=== PATIENT | male | born 1970 | race Caucasian/White ===

== ENCOUNTER → 2020-04-28 14:39 | Outpatient (BNV) | payer MEDICAID, SELFPAY | PROVIDERS: PCP Internal Medicine; Visit Provider Internal Medicine | DX: D47.3 Essential (hemorrhagic) thrombocythemia (principal) | CPT/HCPCS: 99213; 99214; G2211 ==

== ENCOUNTER 2020-06-30 09:56 | Outpatient (REF) | payer MEDICAID, SELFPAY | END 2020-06-30 09:57 | disposition home or self-care (01) | LOC: HO.LAB 09:56 | PROVIDERS: PCP Internal Medicine; Visit Provider Internal Medicine | DX: Z20.822 Contact with and (suspected) exposure to COVID-19 (principal) | CPT/HCPCS: 36415; C9803; U0003 ==

== ENCOUNTER → 2020-09-18 14:23 | Outpatient (REF) | payer MEDICAID, SELFPAY | LOC: HO.SL 14:23 | PROVIDERS: PCP Internal Medicine; Visit Provider Internal Medicine | DX: G47.30 Sleep apnea, unspecified (principal) | CPT/HCPCS: 95806 ==

== ENCOUNTER 2020-10-12 07:40 | Outpatient (REF) | payer MEDICAID, SELFPAY | END 2020-10-12 07:41 | disposition home or self-care (01) | LOC: HO.LAB 07:40 | PROVIDERS: Visit Provider Internal Medicine | DX: Z20.822 Contact with and (suspected) exposure to COVID-19 (principal) | CPT/HCPCS: C9803; U0003; U0005 ==

== ENCOUNTER 2020-11-14 13:54 | Outpatient (REF) | payer MEDICAID, SELFPAY | END 2020-11-14 13:55 | disposition home or self-care (01) | LOC: HO.LAB 13:54 | PROVIDERS: PCP Internal Medicine; Visit Provider Internal Medicine | DX: Z20.822 Contact with and (suspected) exposure to COVID-19 (principal) | CPT/HCPCS: C9803; U0003; U0005 ==

== ENCOUNTER 2021-10-23 12:27 | Outpatient (REF) | payer MEDICAID, SELFPAY ==
[2021-10-23 13:14] LABS: COVID-19 Test Positive (Negative); IDNOW Serial# 08D9AD1C
== END 2021-10-23 12:28 | disposition home or self-care (01) ==
LOC: HO.LAB 12:27
PROVIDERS: PCP Internal Medicine; Visit Provider Internal Medicine
DX: Z20.822 Contact with and (suspected) exposure to COVID-19 (principal)
CPT/HCPCS: 87635; C9803

== ENCOUNTER 2021-10-30 13:03 | Outpatient (REF) | payer MEDICAID, SELFPAY ==
[2021-10-30 13:54] LABS: COVID-19 Test Negative (Negative)
== END 2021-10-30 13:04 | disposition home or self-care (01) ==
LOC: HO.LAB 13:03
PROVIDERS: PCP Internal Medicine; Visit Provider Internal Medicine
DX: Z20.822 Contact with and (suspected) exposure to COVID-19 (principal)
CPT/HCPCS: 87635; C9803

== ENCOUNTER 2022-05-04 13:52 | Emergency (ER) | payer OTHER, MEDICAID, SELFPAY ==
--- NOTE | ~2022-05-04 | XR_ITS ---
EXAMINATION: XR FEMUR, LEFT CLINICAL INFORMATION: Pain, injury COMPARISON: None TECHNIQUE: 4 views of the left femur were obtained. FINDINGS: The bones and soft tissues are normal. No fracture. No osseous lesions. XR/XR femur LT 2V IMPRESSION: Normal left femur.
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
[2022-05-04 14:21] VITALS: BP 126/82; PULSE 90; RESP 18; TEMP 36.8; O2SAT 97; BMI 28.5
[2022-05-04] MEDS: Acetaminophen 325 MG TABLET 975 MG PO (14:27)
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
== END 2022-05-04 15:43 | disposition home or self-care (01) ==
PROVIDERS: Emergency Provider Emergency Medicine; PCP Internal Medicine
DX: Z04.2 Encounter for examination and observation following work accident (principal); M79.652 Pain in left thigh; E11.9 Type 2 diabetes mellitus without complications
CPT/HCPCS: 73552; 99283

== ENCOUNTER 2023-02-03 19:07 | Outpatient (REF) | payer MEDICAID, SELFPAY | END 2023-02-03 19:08 | disposition home or self-care (01) | LOC: HO.HHCLNP 19:07 | PROVIDERS: Visit Provider Registered Nurse | DX: M79.645 Pain in left finger(s) (principal) | CPT/HCPCS: 87070; 87073; 87076; 87147; 87185; 87205 ==

== ENCOUNTER 2024-03-31 15:20 | Outpatient (REF) | payer MEDICAID, SELFPAY ==
--- NOTE | ~2024-03-31 | XR_ITS ---
EXAMINATION: BILATERAL FEET CLINICAL INFORMATION: Two-month history of atraumatic bilateral foot pain COMPARISON: None available. TECHNIQUE: 3 views each foot FINDINGS: Right foot: Some mild degenerative changes are present in the mid foot with some osteophytes arising from the dorsal navicular and cuneiform. There is some mild angular deformity with some lateral angulation at the third and fourth metatarsal phalangeal joints. There is minimal enthesopathy at the insertion of the Achilles tendon. A small plantar calcaneal spur is seen. No fractures or bony destructive lesions. No ankle joint effusion. Left foot: Some mild degenerative changes are present in the mid foot with some osteophytes arising from the dorsal navicular and cuneiform. No ankle joint effusion. Small plantar calcaneal spur is present. No fractures or dislocations. XR/XR foot LT min 3V IMPRESSION: 1. Mild degenerative changes in the mid feet bilaterally. 2. Small plantar calcaneal spurs. 3. No acute finding. Electronically signed by: Arun Williamson MD 04/01/2024 10:24 AM EDT
--- NOTE | ~2024-03-31 | XR_ITS ---
EXAMINATION: BILATERAL FEET CLINICAL INFORMATION: Two-month history of atraumatic bilateral foot pain COMPARISON: None available. TECHNIQUE: 3 views each foot FINDINGS: Right foot: Some mild degenerative changes are present in the mid foot with some osteophytes arising from the dorsal navicular and cuneiform. There is some mild angular deformity with some lateral angulation at the third and fourth metatarsal phalangeal joints. There is minimal enthesopathy at the insertion of the Achilles tendon. A small plantar calcaneal spur is seen. No fractures or bony destructive lesions. No ankle joint effusion. Left foot: Some mild degenerative changes are present in the mid foot with some osteophytes arising from the dorsal navicular and cuneiform. No ankle joint effusion. Small plantar calcaneal spur is present. No fractures or dislocations. XR/XR foot RT min 3V IMPRESSION: 1. Mild degenerative changes in the mid feet bilaterally. 2. Small plantar calcaneal spurs. 3. No acute finding. Electronically signed by: Arun Williamson MD 04/01/2024 10:24 AM EDT
== END 2024-03-31 15:21 | disposition home or self-care (01) ==
LOC: HO.HHCX 15:20
PROVIDERS: Visit Provider Emergency Medicine
DX: M79.671 Pain in right foot (principal); M79.672 Pain in left foot
CPT/HCPCS: 73630

== ENCOUNTER 2024-03-31 15:39 | Outpatient (REF) | payer MEDICAID, SELFPAY ==
[2024-03-31 17:16] LABS: Alanine Aminotransferase 28 U/L (0-40); Alkaline Phosphatase 115 U/L (39-117); Anion Gap 13 (12-20); Aspartate Amino Transferase 12 U/L (5-37); Bilirubin Total 0.3 mg/dL (0.0-1.0); Blood Urea Nitrogen 14 mg/dL (9-16); Calcium 9.6 mg/dL (8.4-10.2); Carbon Dioxide 24 mmol/L (22-29); Chloride 105 mmol/L (96-108); Cholesterol 180 mg/dL (<200); Estimated Glomerular Filt Rate > 60; Glucose Random 390 mg/dL (60-115); HDL Cholesterol 60 mg/dL (>40); LDL Cholesterol Calculated 59 mg/dL (<100); Sodium 138 mmol/L (135-145); Total Protein 7.1 g/dL (6.5-8.0); Triglycerides 307 mg/dL (<150)
[2024-03-31 17:17] LABS: Prostate Specific Antigen 0.83 ng/mL (<0.05-4.0)
== END 2024-03-31 15:40 | disposition home or self-care (01) ==
LOC: HO.HHCL 15:39
PROVIDERS: Visit Provider Nurse Practitioner Family
DX: Z71.3 Dietary counseling and surveillance (principal); E11.9 Type 2 diabetes mellitus without complications; R35.0 Frequency of micturition
CPT/HCPCS: 36415; 80053; 80061; 84153

== ENCOUNTER 2024-07-05 16:20 | Outpatient (REF) | payer MEDICAID, SELFPAY ==
[2024-07-05 17:50] LABS: MANUAL DIFF FLAG NO
[2024-07-05 18:00] LABS: Basophils Absolute Auto 0.1 X10*3/uL (0.0-0.2); Basophils Percent Auto 0.7 % (0-2); Eosinophils Absolute Auto 0.3 X10*3/uL (0.0-0.4); Eosinophils Percent Auto 2.3 % (0-4); Hematocrit 45.2 % (42.0-52.0); Hemoglobin 14.5 g/dl (14.0-18.0); Imm Gran Abs Auto 0.17 X10*3/uL (0.00-0.03); Imm Gran Pct Auto 1.4 % (0.0-0.4); Lymphocytes Absolute Auto 1.6 X10*3/uL (1.2-4.9); Lymphocytes Percent Auto 12.8 % (20-40); Mean Corpuscular HGB Conc 32.1 g/dl (31.0-36.0); Mean Corpuscular Hemoglobin 25.6 pg (27.0-33.0); Mean Corpuscular Volume 79.7 fL (80.0-98.0); Mean Platelet Volume 8.7 fL (9.4-12.4); Monocytes Percent Auto 8.2 % (2-11); Neutrophils Absolute Auto 9.2 x10*3/uL (2.0-8.3); Neutrophils Percent Auto 74.6 % (45-73); Red Blood Count 5.67 X10*6/uL (4.60-5.80); Red Cell Distribution Width 13.9 % (11.0-16.0); White Blood Count 12.3 X10*3/uL (4.8-10.8)
[2024-07-05 18:11] LABS: Alanine Aminotransferase 29 U/L (0-40); Albumin Level 4.1 g/dL (3.5-5.0); Alkaline Phosphatase 91 U/L (39-117); Anion Gap 10 (12-20); Aspartate Amino Transferase 30 U/L (5-37); Bilirubin Total 0.5 mg/dL (0.0-1.0); Blood Urea Nitrogen 17 mg/dL (9-16); Calcium 9.5 mg/dL (8.4-10.2); Carbon Dioxide 23 mmol/L (22-29); Chloride 110 mmol/L (96-108); Estimated Glomerular Filt Rate > 60; Glucose Random 121 mg/dL (60-115); Potassium 4.1 mmol/L (3.3-5.1); Sodium 139 mmol/L (135-145); Total Protein 7.5 g/dL (6.5-8.0)
[2024-07-05 18:49] LABS: Platelet Count 1864 X10*3/uL (160-400)
--- OUTSIDE RECORDS SUMMARY | 2024-07-05 19:51 | XMS_ITS | Encounter Summary ---
Author Organization [facility] Address [address] [place] [address] Care Team Providers Care Media Marketing Specialist Name Role Phone Name, Marty HOLDER Primary Care Provider [phone] Jenn Bryan PharmD Unavailable [phone] Reason for Visit * Reason Onset Date Comments Nurse Triage 07/01/2024 Encounter Details Date Type Department Care Team ([facility] st Contact Info) Description 07/01/2024 Telephone [facility] [address] [place] [address] Name, MD Marty [address] [place] [address] Nurse Triage Social History Tobacco Use Types Packs/Day Years Used Date Smoking Tobacco: Never Passive Smoke Exposure: Never Smokeless Tobacco: Never Alcohol Use Standard Drinks/Week Comments Never 0 (1 standard drink = 0.6 oz pur e alcohol) Depression Answer Date Recorded Patient Health Questionnaire-9 Score 9 04/11/2023 Patient Health Questionnaire-9 Score 9 04/11/2023 Last PHQ-9: Questionnaire Data Not on file 1 06/11/2022 Housing Stability Answer Date Recorded What is your housing situation today? I have bobnarciso mabry 04/04/[address] you li ve. Do you have problems with any of the following? Pests such as bugs, ants, or mice 04/04/2023 Food Insecurity Answer Date Recorded Within the past 12 months, y ou worried that your food would run out before you got money to buy more: Sometimes True 2022 Within the past 12 months,th e food you bought just didn't last and you didn't have enough money to get more: Sometimes True 04/04/2023 Transportation Answer Date Recorded In the past 12 months, has l ack of transportation kept you from medical appts, meetings, work or from getting things needed for daily living? No 04/04/2023 Utilities Answer Date Recorded In the past 12 months, has t he electric, gas, oil or water company threatened to shut off services in your home? No 04/04/2023 Depression Answer Date Recorded Patient Health Questionnaire-2 Score 4 04/11/2023 Sex and Gender Information Value Date Recorded Sex Assigned at Male 04/08/2022 10:32 AM EDT Legal Sex Male 10:32 AM EDT Gender Identity Male 04/08/2022 10:32 AM EDT Sexual Orientation Straight 04/08/2022 10 :32 AM EDT documented as of this encounter Miscellaneous Notes * Telephone Encounter - Velia Barton LPN - 07/01/2024 10:57 AM EST Triage call returned to patient who reports bilateral foot pain on the bottom of his feet. Denies neuropathic pain as this feels different with cramping and shooting pain. No recent accident or injury. No open areas or discoloration. Patient unable to report current BG as he states his CGM is . Patient is taking amitriptyline as previously ordered and was told he has arthritis in feet but that OTC Ibuprofen and cream is not effective for pain. Disposition reviewed and patient in agreement with plan. ASK/Michael FAMILY HELPER on Friday at 230pm. Protocol Used: Foot Pain (Adult) Protocol-Based Disposition: See in Office or Video Visit within 3 Days Video visit not offered Positive Triage Question: * Moderate pain (e.g., interferes with normal activities, limping) and present > 3 days * All higher-acuity triage questions were negative Care Advice Discussed: * Pain Medicines * Reasons To Call Back - Swelling, redness, or fever occur - Severe pain not relieved by pain medicine - Pain lasts over 7 days - You become worse * Reassurance and Education - Muscle Cramps * Reasons To Call Back - Fever or redness occurs - Foot is cool or blue in comparison to other side - You become worse * Telephone Encounter - Treva Larsen - 07/01/2024 10:38 AM EST Symptom: Foot or Ankle Pain - Not From Injury Outcome: Schedule an urgent appointment (within 1 hour) or talk to a nurse or provider soon Reason: Trouble walking The caller accepted this outcome. Contact pt at [phone] (hungarian) documented in this encounter Plan of Treatment Upcoming Encounters Date Type Department Care Team (Late st Contact Info) Description 07/27/2024 9:45 AM EST Office Visit [facility] [address] [place] [address] Tanya Gonzalez, OD [address] [place] [address] 08/10/2024 2:30 PM EST Office Visit [facility] [address] [place] [phone] Rayne Medley NP [address] [place] [address] 09/21/2024 10:15 AM EDT Office Visit [facility] [address] [place] [phone] Name, MD Marty [address] [place] [phone] documented as of this encounter Visit Diagnoses Not on filedocumented in this encounter Additional Health Concerns Assessment Noted Time PHQ-9 Depression Total Score: 9 04/11/20 23 3:59 PM EDT documented as of this encounter Care Teams Media Marketing Specialist Relationship Specialty Start Date End Date Name, MD Marty [address] [place] [id number] PCP - General Internal Medicine 03/31/24 Jenn Bryan PharmD [address] [place] [phone] Pharmacist Internal Medicine 04/29/24 documented as of this encounter
--- OUTSIDE RECORDS SUMMARY | 2024-07-05 19:51 | XMS_ITS | Encounter Summary ---
Author Organization [employer] Address [address] [facility] 7t [place] [address] Care Team Providers Care Manager Primary Name Role Phone Name, Marty HOLDER Primary Care Provider [phone] Jenn Bryan PharmD Unavailable [phone] Reason for Referral * Consultation (Routine) - Pending Review Specialty Diagnoses / Procedures Referred By Fabian watson Referred To Contact Podiatry Diagnoses Foot pain, bilateral Type 2 diabetes mellitus with diabetic neuropathy, unspecified whether prison insulin use ([facility]) Elevated hemoglobin A1c Rayne Medley NP [address] [place] [address] Phone: tel: fax: Referral ID Status Reason Start Date Expiration Date Visits Requested Visits Authorized [id number] Pending Review Specialty Services Required 07/05/2024 07/05/2025 1 1 * Consultation (Routine) - Authorized Specialty Diagnoses / Procedures Referred By Fabian watson Referred To Contact Optometry Diagnoses Type 2 diabetes mellitus with diabetic neuropathy, unspecified whether local company intermodal truck driver insulin use ([facility]) Elevated hemoglobin A1c Rayne Medley NP [address] [place] [address] Phone: tel: fax: [facility] OPT[facility] [address] [place] [address] Phone: tel: fax: Referral ID Status Reason Start Date Expiration Date Visits Requested Visits Authorized [id number] Authorized Consult and Treat 07/05/2024 07/05/2025 1 1 Encounter Details Date Type Department Care Team (Late st Contact Info) Description 07/05/2024 2:30 PM EST Office Visit [facility] MED[facility] [address] [place] [address] Rayne Medley NP [address] [place] [address] Foot pain, bilateral (Primary Dx); Type 2 diabetes mellitus with diabetic neuropathy, unspecified whether local company intermodal truck driver insulin use ([facility]); Elevated hemoglobin A1c Social History Tobacco Use Types Packs/Day Years Used Date Smoking Tobacco: Never Passive Smoke Exposure: Never Smokeless Tobacco: Never Alcohol Use Standard Drinks/Week Comments Never 0 (1 standard drink = 0.6 oz pur e alcohol) Depression Answer Date Recorded Patient Health Questionnaire-9 Score 4 07/05/2024 Patient Health Questionnaire-9 Score 4 07/05/2024 Last PHQ-9: Questionnaire Data Not on file 0 07/05/2024 Housing Stability Answer Date Recorded What is your housing situation today? I have bob mabry 07/05/[address] you li ve. Do you have problems with any of the following? None of the above 07/05/2024 Food Insecurity Answer Date Recorded Within the past 12 months, y ou worried that your food would run out before you got money to buy more: Never True 07/05/2024 Within the past 12 months,th e food you bought just didn't last and you didn't have enough money to get more: Never True Transportation Answer Date Recorded In the past 12 months, has l ack of transportation kept you from medical appts, meetings, work or from getting things needed for daily living? No 07/05/2024 Utilities Answer Date Recorded In the past 12 months, has t he electric, gas, oil or water company threatened to shut off services in your home? No 07/05/2024 Depression Answer Date Recorded Patient Health Questionnaire-2 Score 2 07/05/2024 Internet Access Answer Date Recorded Internet Access Q1 Yes 07/05/2024 Internet Access Q2 Not on file 07/05/2024 Sex and Gender Information Value Date Recorded Sex Assigned at Male 04/08/2022 10:32 AM EDT Legal Sex Male 10:32 AM EDT Gender Identity Male 04/08/2022 10:32 AM EDT Sexual Orientation Straight 04/08/2022 10 :32 AM EDT documented as of this encounter Last Filed Vital Signs Vital Sign Reading Time Taken Comments Blood Pressure 144/84 07/05/2024 2:33 PM EST Pulse 92 07/05/2024 2:33 PM EST Temperature 36.7 ??C (98.1 ??F) 07/05/2024 2:33 PM ES T Respiratory Rate 16 07/05/2024 2:33 PM EST Oxygen Saturation 97% 07/05/2024 2:33 PM EST Inhaled Oxygen Concentration - - Weight 94.6 kg (208 lb 9.6 oz) 07/05/2024 2:33 P M EST Height 170.2 cm (5' 7 ) 07/05/2024 2:33 PM EST Body Mass Index 32.67 07/05/2024 2:33 PM EST documented in this encounter Plan of Treatment Upcoming Encounters Date Type Department Care Team (Late st Contact Info) Description 07/27/2024 9:45 AM EST Office Visit [facility] OPT[facility] [address] [place] [address] Tanya Gonzalez, OD [address] [place] [address] 08/10/2024 2:30 PM EST Office Visit [facility] [address] [place] [address] Rayne Medley, MYRON [address] [place] [address] 09/21/2024 10:15 AM EDT Office Visit [facility] [address] [place] [address] Name, MD Marty [address] [place] [address] Scheduled Orders Name Type Priority Associated Diagnoses Orde r Schedule Hemoglobin A1c Lab Routine Foot pain, bilateral Elevated hemoglobin A1c Expected: 07/05/2024 (Approximate), Expires: 07/05/2025 Scheduled Referrals Name Type Priority Associated Diagnoses Orde r Schedule Referral to [facility] Outpatient Referral Routine Type 2 diabetes mellitus with diabetic neuropathy, unspecified whether local company intermodal truck driver insulin use ([facility]) Elevated hemoglobin A1c Expected: 07/05/2024 (Approximate), Expires: 07/05/2025 Referral to Podiatry Outpatient Referral Routine Foot pain, bilateral Type 2 diabetes mellitus with diabetic neuropathy, unspecified whether prison insulin use ([facility]) Elevated hemoglobin A1c Expected: 07/05/2024 (Approximate), Expires: 07/05/2025 documented as of this encounter Procedures Procedure Name Priority Date/Time Associated Diagnosis Comments CBC WITH AUTO DIFFERENTIAL Routine 07/05/2024 4:23 PM EST Foot pain, bilateral Elevated hemoglobin A1c COMPREHENSIVE METABOLIC PANEL Routine 07/05/2024 4:23 PM EST Foot pain, bilateral Elevated hemoglobin A1c documented in this encounter Results * (ABNORMAL) CBC auto differential (07/05/2024 4:23 PM EST) White Blood Count 12.3(H) 4.8 - 10.8 X10*3/uL [facility] Red Blood Count 5.67 4.60 - 5.80 X10*6/uL [facility] Hemoglobin 14.5 14.0 - 18.0 g/dl [facility] Hematocrit 45.2 42.0 - 52.0 % [facility] Mean Corpuscular Volume 79.7(L) 80.0 - 98.0 fL [facility] Mean Corpuscular Hemoglobin 25.6(L) 27.0 - 33.0 pg [facility] Mean Corpuscular HGB Conc 32.1 31.0 - 36.0 g/dl [facility] Red Cell Distribution Width 13.9 11.0 - 16.0 % [facility] Platelet Count 1,864(HH) 160 - 400 X10*3/uL [facility] Comment:Results of PLT garcia d to and read back by DR Hodge 07/05/24 at 1849 by WILMER. Mean Platelet Volume 8.7(L) 9.4 - 12.4 fL [facility] Neutrophils Percent Auto 74.6(H) 45 - 73 % [facility] Imm Gran Pct Auto 1.4(H) 0.0 - 0.4 % [facility] Lymphocytes Percent Auto 12.8(L) 20 - 40 % [facility] Monocytes Percent Auto 8.2 2 - 11 % [facility] Eosinophils Percent Auto 2.3 0 - 4 % [facility] Basophils Percent Auto 0.7 0 - 2 % [facility] NRBC Pct Auto 0.0 0.0 - 0.2 /100WBC [facility] Neutrophils Absolute Auto 9.2(H) 2.0 - 8.3 x10*3/uL [facility] Imm Gran Abs Auto 0.17(H) 0.00 - 0.03 X10*3/uL [facility] Lymphocytes Absolute Auto 1.6 1.2 - 4.9 X10*3/uL [facility] Monocytes Absolute Auto 1.0 0.1 - 1.2 X10*3/uL [facility] Eosinophils Absolute Auto 0.3 0.0 - 0.4 X10*3/uL [facility] Basophils Absolute Auto 0.1 0.0 - 0.2 X10*3/uL [facility] NRBC Abs Auto 0.000 0.0 - 0.012 X10*3/uL [facility] Blood Venous blood specimen / Unknown 07/05/2024 4:23 PM EST 07/05/2024 5:48 PM EST us Rayne Medley EGG TESTER LAB BLOOD ORDERABLES Final Resul t [facility] [address] [place] [address] [phone] * (ABNORMAL) Comprehensive Metabolic Panel (07/05/2024 4:23 PM EST) Sodium 139 135 - 145 mmol/L [facility] Potassium 4.1 3.3 - 5.1 mmol/L [facility] Chloride 110(H) 96 - 108 mmol/L [facility] Carbon Dioxide 23 22 - 29 mmol/L [facility] Anion Gap 10(L) 12 - 20 [facility] Urea Nitrogen (BUN) 17(H) 9 - 16 mg/dL [facility] Creatinine, Serum 0.75 0.5 - 1.4 mg/dL [facility] Estimated Glomerular Filt Rate >60 [facility] Comment:Chronic Kidney Disea se: Estimated GFR < 60 mL/min/[id number] Kidney Disease: Estimated GFR < 15 mL/min/1.73m2 Glucose 121(H) 60 - 115 mg/dL [facility] Calcium 9.5 8.4 - 10.2 mg/dL [facility] Bilirubin, Total 0.5 0.0 - 1.0 mg/dL [facility] Aspartate Amino Transferase 30 5 - 37 U/L [facility] Alanine Aminotransferase 29 0 - 40 U/L [facility] Total Protein 7.5 6.5 - 8.0 g/dL [facility] Albumin Level 4.1 3.5 - 5.0 g/dL [facility] Alkaline Phosphatase 91 39 - 117 U/L [facility] Blood Venous blood specimen / Unknown 07/05/2024 4:23 PM EST 07/05/2024 5:48 PM EST us Rayne Medley EGG TESTER LAB BLOOD ORDERABLES Final Resul t Performing Organization Address City/State/[facility] Co de Phone Number [facility] [address] [place] [address] [phone] documented in this encounter Visit Diagnoses Diagnosis Foot pain, bilateral- Primary Type 2 diabetes mellitus with diabetic neuropathy, unspecified whether prison insulin use ([facility]) Elevated hemoglobin A1c Other abnormal blood chemistry documented in this encounter Additional Health Concerns Assessment Noted Time PHQ-9 Depression Total Score: 4 07/05/19 25 2:47 PM EST documented as of this encounter Care Teams Manager Primary Relationship Specialty Start Date End Date Name, MD Marty [address] [place] [address] PCP - General Internal Medicine 03/31/24 Jenn Bryan, GalloD [address] [place] [address] Pharmacist Internal Medicine 04/29/24 documented as of this encounter
--- OUTSIDE RECORDS SUMMARY | 2024-07-05 19:51 | XMS_ITS | Encounter Summary ---
Author Organization [employer] Address [address] [facility] [address] [place] [address] Care Team Providers Care Sterile Processing Technologist Name Role Phone Name, Marty HOLDER Primary Care Provider [phone] Jenn Bryan PharmD Unavailable [phone] Encounter Details Date Type Department Care Team ([facility] st Contact Info) Description 04/02/2024 Orders Only [facility] [address] [place] [address] Linh Thompson RN Social History Tobacco Use Types Packs/Day Years [...] housing situation today? I have bob mabry 04/04/[address] you [...] AM EDT documented as of this encounter Plan of Treatment Upcoming Encounters Date Type Department Care Team (Late st Contact Info) Description 07/27/2024 9:45 AM EST Office Visit [facility] OPT[facility] [address] [place] [address] Tanya Gonzalez, OD [address] [place] [address] 08/10/2024 2:30 PM EST Office Visit [facility] MEDICINE [address] [place] [address] Rayne Medley, MYRON [address] [place] [address] 09/21/2024 10:15 AM EDT Office Visit [facility] [address] [place] [address] Name, MD Marty [address] [place] [address] documented as of this encounter Visit Diagnoses Not on filedocumented in this encounter Additional Health Concerns Assessment Noted Time PHQ-9 Depression Total Score: 9 04/11/20 23 3:59 PM EDT documented as of this encounter Care Teams Sterile Processing Technologist Relationship Specialty Start Date End Date Name, MD Marty [address] [place] [phone] PCP - General Internal Medicine 03/31/24 Jenn Bryan PharmD [address] [place] [phone] Pharmacist Internal Medicine 04/29/24 documented as of this encounter
--- OUTSIDE RECORDS SUMMARY | 2024-07-05 19:51 | XMS_ITS | Encounter Summary ---
Author Organization [employer] Address [address] 7[address] [place] [address] Care Team Providers Care Surgical Dressing Maker Name Role Phone Name, Marty HOLDER Primary Care Provider [phone] Jenn Bryan PharmD Unavailable [phone] Reason for Visit * Reason Comments Med Refill Encounter Details Date Type Department Care Team ([facility] Contact Info) Description 06/27/2024 Refill [facility] [address] [place] [address] Name, MD Marty [address] [place] [address] Social History Tobacco Use Types Packs/Day Years [...] Description 07/27/2024 9:45 AM EST Office Visit [facility] OPTOMETRY [address] [place] [address] Tanya Gonzalez, OD [address] [place] [address] 08/10/2024 2:30 PM EST Office Visit [facility] MED[facility]INE [address] [place] [address] Rayne Medley NP [address] [place] [address] 09/21/2024 10:15 AM EDT Office Visit [facility] [address] [place] [address] Name, MD Marty [address] [place] [address] documented as of this encounter Visit Diagnoses Not on filedocumented in this encounter Additional Health Concerns Assessment Noted Time PHQ-9 Depression Total Score: 9 04/11/20 23 3:59 PM EDT documented as of this encounter Care Teams Surgical Dressing Maker Relationship Specialty Start Date End Date Marty Friedman MD [address] [place] [address] PCP - General Internal Medicine 03/31/24 Jenn Bryan, PharmD [address] [place] [address] Pharmacist Internal Medicine 04/29/24 documented as of this encounter
--- OUTSIDE RECORDS SUMMARY | 2024-07-05 19:51 | XMS_ITS | Encounter Summary ---
Author Organization [employer] Address [address] [facility] 7t [place] [address] Care Team Providers Care Telegrapher Agent Name Role Phone Name, Marty HOLDER Primary Care Provider Jenn Bryan PharmD Unavailable [phone] Reason for Visit * Reason Comments Pre-visit Planning Not in service Encounter Details Date Type Department Care Team ([facility] Contact Info) Description 06/23/2024 Patient Outreach [facility] MED[facility] [address] [place] [address] Name, MD Marty [address] [place] [address] Pre-visit Planning (Not in service) Social History Tobacco Use Types Packs/Day Years [...] AM EDT documented as of this encounter Progress Notes * Pati August - 06/23/2024 9:10 AM EST CC Pati Ferguson placed outbound call to patient to complete pre-visit planning. No answer at this time. Patient name and were not confirmed. CC unable to lvm . Not in service. documented in this encounter Plan of Treatment Upcoming Encounters Date Type Department Care Team (Late st Contact Info) Description 07/27/2024 9:45 AM EST Office Visit [facility] OPTOMETRY [address] [place] [address] Tanya Gonzalez, OD [address] [place] [address] 08/10/2024 2:30 PM EST Office Visit [facility] MEDICINE [address] [place] [address] Rayne Medley NP [address] [place] [address] 09/21/2024 10:15 AM EDT Office Visit [facility] MED[facility]INE [address] [place] [phone] Name, MD Marty [address] [place] [address] documented as of this encounter Visit Diagnoses Not on filedocumented in this encounter Additional Health Concerns Assessment Noted Time PHQ-9 Depression Total Score: 9 04/11/20 23 3:59 PM EDT documented as of this encounter Care Teams Telegrapher Agent Relationship Specialty Start Date End Date Name, MD Marty [address] [place] [address] PCP - General Internal Medicine 03/31/24 Jenn Bryan PharmD [address] [place] [address] Pharmacist Internal Medicine 04/29/24 documented as of this encounter
--- OUTSIDE RECORDS SUMMARY | 2024-07-05 19:51 | XMS_ITS | Encounter Summary ---
Author Organization [employer] Address [address] [facility] [address] 7[address] [place] [address] Care Team Providers Care Mill House Supervisor Name Role Phone Name, Marty HOLDER Primary Care Provider [phone] Jenn Bryan PharmD Unavailable [phone] Encounter Details Date Type Department Care Team (Latest Contact Info) Description 07/05/2024 Travel Social History Tobacco Use Types Packs/Day Years [...] Description 07/27/2024 9:45 AM EST Office Visit [facility] OPTOMETRY [address] [place] [address] Tanya Gonzalez, OD [address] [place] [address] 08/10/2024 2:30 PM EST Office Visit [facility] MEDICINE [address] [place] [address] Rayne Medley, RAILROADER [address] [place] [address] 09/21/2024 10:15 AM EDT Office Visit [address] [address] NameMarty MD [address] [place] [address] documented as of this encounter Visit Diagnoses Not on filedocumented in this encounter Additional Health Concerns Assessment Noted Time PHQ-9 Depression Total Score: 4 07/05/19 25 2:47 PM EST documented as of this encounter Care Teams Mill House Supervisor Relationship Specialty Start Date End Date NameMarty MD [address] [place] [address] PCP - General Internal Medicine 03/31/24 Jenn Bryan PharmD [address] [place] [address] Pharmacist Internal Medicine 04/29/24 documented as of this encounter
--- OUTSIDE RECORDS SUMMARY | 2024-07-05 19:51 | XMS_ITS | Encounter Summary ---
Author Organization [employer] Address [address] [facility] 7t [place] [address] Care Team Providers Care Senior Mortgage Underwriter Name Role Phone Name, Marty HOLDER Primary Care Provider [phone] Jenn Bryan PharmD Unavailable [phone] Reason for Visit * Reason Comments Med Refill Encounter Details Date Type Department Care Team ([facility] st Contact Info) Description 06/22/2024 Refill [facility] [address] [place], [place] [phone] Name, MD Marty [address] [place] [address] Diabetes mellitus without complication (CMS/HCC) Social History Tobacco Use Types Packs/Day Years [...] Description 07/27/2024 9:45 AM EST Office Visit [facility] OPTOMETRY [address] [place] [address] Tanya Gonzalez, OD [address] [place] [address] 08/10/2024 2:30 PM EST Office Visit [facility] MEDICINE [address] [place] [address] Rayne Medley NP [address] [place] [address] 09/21/2024 10:15 AM EDT Office Visit [facility] MEDICINE [address] [place] [address] Marty Friedman MD [address] [place] [address] documented as of this encounter Visit Diagnoses Diagnosis Diabetes mellitus without complication (CMS/HCC) Type II or unspecified type diabetes mellitus without mention of complication, not stated as uncontrolled documented in this encounter Additional Health Concerns Assessment Noted Time PHQ-9 Depression Total Score: 9 04/11/20 23 3:59 PM EDT documented as of this encounter Care Teams Senior Mortgage Underwriter Relationship Specialty Start Date End Date Marty Friedman MD [address] [place] [address] PCP - General Internal Medicine 03/31/24 Jenn Bryan, Hawa [address] [place] [address] Pharmacist Internal Medicine 04/29/24 documented as of this encounter
--- OUTSIDE RECORDS SUMMARY | 2024-07-05 19:51 | XMS_ITS | Clinical Summary ---
Author Organization [employer] Address [address] [facility] 7[address] [place] [address] Care Team Providers Care Exercise Instructor Name Role Phone Name, Marty HOLDER Primary Care Provider [phone] Jenn Bryan PharmD Unavailable Allergies Active Allergy Reactions Criticality Noted Date Comments Metformin 08/24/2020 GI upset Medications cromolyn (Opticrom) 4 % ophthalmic solution INSTILL 1 DROP INTO THE AFFECTED EYE(S) FOUR TIMES DAILY 02/09/20 22 Active lisinopril 5 MG tabletIndications: Benign essential hypertension TAKE 1 TABLET BY MOUTH EVERY MORNING 90 tablet 3 10/21/19 24 Active Multiple Vitamins-Minerals (CertaVite/Antioxi dants) tablet TAKE 1 TABLET BY MOUTH EVERY MORNING 90 tablet 3 11/24/19 24 Active glipiZIDE (Glucotrol) 5 MG tabletIndications: Type 2 diabetes mellitus with hyperosmolarity without coma, without long-term current use of insulin (CMS/HCC) TAKE 4 TABLETS BY MOUTH TWICE DAILY IN THE MORNING AND THE EVENING 720 tablet 3 11/24/19 24 Active FREESTYLE LITE test stripIndications:D iabetes mellitus without complication (CMS/HCC) TEST BLOOD SUGAR THREE TIMES DAILY 100 strip 11 01/21/20 24 Active anagrelide (Agrylin) 1 MG capsule TAKE 1 CAPSULE BY MOUTH THREE TIMES DAILY IN THE MORNING, EVENING, AND BEDTIME 03/31/20 24 Active Alcohol Swabs (Alcohol Prep) padsIndications:Ty pe 2 diabetes mellitus with diabetic neuropathy, unspecified whether long-term insulin use (CMS/HCC) Use 3 times a day 200 each 1 04/09/20 24 Active Blood Glucose Monitoring Suppl (FreeStyle [place] Lite) w/Device kit Use to test blood sugar 3 times daily 1 kit 04/09/20 Active Blood Pressure kitIndications:Typ e 2 diabetes mellitus with diabetic neuropathy, with long-term current use of insulin (CMS/[facility]),Benign essential hypertension Use to check BP once daily as directed 1 kit 04/29/20 Active Continuous Glucose Special Events Fundraiser (FreeStyle Jovanni 2 Howe) deviceIndications: Type 2 diabetes mellitus with diabetic neuropathy, with long-term current use of insulin (CMS/[facility]) Use to scan sensor at least every 8 hours, as directed, for CGM 1 each 04/29/20 Active Continuous Glucose Sensor (FreeStyle Jovanni 2 Sensor) miscIndications:Ty pe 2 diabetes mellitus with diabetic neuropathy, with long-term current use of insulin (CMS/[facility]) Apply 1 sensor, as directed, every 14 days for CGM 2 each 04/29/20 Active glucose blood (FreeStyle Precision Stephanie Test) test stripIndications:T ype 2 diabetes mellitus with diabetic neuropathy, with long-term current use of insulin (CMS/[facility]) Use to test blood sugar up to 4 times daily, as directed 100 each 04/29/20 Active TRUEplus Lancets 33G miscIndications:Ty pe 2 diabetes mellitus with diabetic neuropathy, with long-term current use of insulin ([facility]) TEST BLOOD SUGAR FOUR TIMES DAILY 100 each 04/29/20 24 Active acetaminophen (Tylenol) 500 MG tablet Take 2 tablets (1,000 mg) by mouth every 6 (six) hours if needed for moderate pain or fever. 50 tablet 5 04/29/20 Active Diclofenac Sodium 1 % gel Apply 4 g topically if needed in the morning, at noon, in the evening, and at bedtime (pain). 100 g 5 04/29/20 24 Active amitriptyline (Elavil) 10 MG tablet Take 1 tablet (10 mg) by mouth at bedtime. 90 tablet 04/29/20 Active insulin lispro (HumaLOG) 100 UNIT/ML injectionIndicatio ns:Type 2 diabetes mellitus with diabetic neuropathy, with long-term current use of insulin (CMS/[facility]) Inject 10 units subQ up to three times daily with meals. 15 mL 2 04/29/20 24 Active insulin degludec (Tresiba FlexTouch) 200 UNIT/ML injectionIndicatio ns:Type 2 diabetes mellitus with diabetic neuropathy, with long-term current use of insulin ([facility]) Inject 40 units subQ once daily as directed 9 mL 5 04/29/20 24 Active Tirzepatide (Mounjaro) 5 MG/0.5ML solution auto-injectorIndic ations:Type 2 diabetes mellitus with diabetic neuropathy, with long-term current use of insulin ([facility]) Inject 5 mg under the skin 1 (one) time per week. 2 mL 11 04/29/20 24 Active Tirzepatide (Mounjaro) 2.5 MG/0.5ML solution auto-injectorIndic ations:Type 2 diabetes mellitus with diabetic neuropathy, with long-term current use of insulin ([facility]) Inject 2.5 mg under the skin 1 (one) time per week. 2 mL 04/29/20 24 Active cetirizine (ZyrTEC) 10 MG tabletIndications: Viral upper respiratory tract infection TAKE 1 TABLET BY MOUTH EVERY MORNING 90 tablet 1 05/12/20 24 Active Pentips Generic Pen Waite 32G X 4 MM miscIndications:Di abetes mellitus without complication ([facility]) DIRECTED FOUR TIMES DAILY TO INJECT lantus AND humalog 100 each 1 06/23/19 25 Active sertraline (Zoloft) 50 MG tablet TAKE 1 TABLET BY MOUTH EVERY MORNING 30 tablet 1 06/29/19 25 Active gabapentin (Neurontin) 100 MG capsuleIndications :Foot pain, bilateral,Type 2 diabetes mellitus with diabetic neuropathy, unspecified whether long-term insulin use ([facility]),Elevated hemoglobin A1c Take 1 capsule (100 mg) by mouth at bedtime for 3 days, THEN 2 capsules (200 mg) at bedtime for 3 days, THEN 3 capsules (300 mg) at bedtime for 24 days. 81 capsule 07/05/19 25 2024 Active insulin pen needle (UltiGuard SafePack Pen Needle) 32G x 4 mm miscIndications:Di abetes mellitus without complication ([facility]) USE FOUR TIMES DAILY TO INJECT LANTUS AND HUMALOG 100 each 7 10/20/19 24 2024 Discontinued sertraline (Zoloft) 50 MG tablet TAKE 1 TABLET BY MOUTH EVERY MORNING 30 tablet 1 05/10/20 24 2024 Discontinued Active Problems Problem Noted Date Diagnosed Date Foot pain, bilateral 07/05/2024 Elevated hemoglobin A1c 07/05/2024 Type 2 diabetes mellitus with diabetic neuropath y 04/09/2024 Assessment & Plan (04/09/2024 4:10 PM EDT): A1c above 7% goal at 12.3 today Pt will continue on lantus 33 units once daily at bedtime Pt will restart lispro 4 units before breakfast, 6 units before lunch, and 6 units before dinner Increased Trulicity today to 3mg. Once weekly, provided education about med side effects including nausea, vomiting, abdominal pain Pt will start amitriptyline 10 mg for neuropathy in feet Encouraged low carb diet and reducing amount of sweets on the weekend Patient plans to check Bgs at least twice daily Referral placed to CDTM to start patient on CGM Referral to vision center placed today for routine eye exam Diabetes mellitus without complication 0 Benign essential hypertension 02/01/2020 Thrombocytosis 02/01/2020 Encounters Date Type Department Care Team Description 07/05/2024 2:30 PM EST Office Visit [facility] [address] [place] [phone] Rayne Medley NP Foot pain, bilateral (Primary Dx); Type 2 diabetes mellitus with diabetic neuropathy, unspecified whether long-term insulin use ([facility]); Elevated hemoglobin A1c 07/05/2024 Travel 07/01/2024 Telephone [facility] [address] [place] [phone] Marty Friedman MD Nurse Triage 06/27/2024 Refill [facility] [address] [place] [address] Marty Friedman MD 06/23/2024 Patient Outreach [facility] [address] [place] [phone] Marty Friedman MD Pre-visit Planning (Not in service) 06/22/2024 Refill [facility] [address] [place], [place] [phone] Marty Friedman MD Diabetes mellitus without complication ([facility]/HCC) 05/11/2024 Telephone [facility] [address] [place] [address] Marty Friedman MD Durable Medical Equipment 05/11/2024 Refill [facility] [address] [place] [address] Marty Friedman MD Viral upper respiratory tract infection 05/06/[address] [address] Jayna Strickland NP 05/05/2024 10:00 AM EST Clinical Support [address] [address] Isabelle Montoya, swine extension field specialist mellitus without complication ([facility]) 04/30/[address] [address] Marty Friedman MD Durable Medical Equipment 04/29/[address] [address] Jenn Bryan, PharmD Prior Authorization ((1) Freestyle Jovanni 2 CGM sensor, reader, precision stephanie test strips; (2) Mounjaro) 04/29/[address] [address] Marty Friedman MD 04/28/[address] [address] Marty Friedman MD 04/12/2024 Travel 04/09/2024 2:45 PM EDT Office Visit [address] [address] Marty Friedman MD Type 2 diabetes mellitus with diabetic neuropathy, unspecified whether long-term insulin use ([facility]) (Primary Dx); Dietary counseling; Exercise counseling from Last 3 Months Immunizations Name Administration Dates Next Due Hep B, adult 09/02/2019,04/12/2019,03/11/2019 Influenza injectable quadriv alent IIV4 with preservative 05/19/2017 Influenza injectable quadriv alent preservative free 04/01/2018 Moderna Covid-19 Vaccine 12+ 06/18/2021,09/28/19 21,08/22/2020 Pneumococcal Polysaccharide PPSV23 11/12/2021 Tdap 05/19/2017 Social History Tobacco Use Types Packs/Day Years Used Date Smoking Tobacco: Never Passive Smoke Exposure: Never Smokeless Tobacco: Never Tobacco Cessation:Counseling Given: Not Answered Alcohol Use Standard Drinks/Week Comments Never 0 [...] Orientation Straight 04/08/2022 10 :32 AM EDT Last Filed Vital Signs Vital Sign Reading [...] Mass Index 32.67 07/05/2024 2:33 PM EST Plan of Treatment Upcoming Encounters Date Type Department Care Team (Late st Contact Info) Description 07/27/2024 9:45 AM EST Office Visit [facility] [address] [place] [address] Carlos Tanya, OD [address] [place] [address] 08/10/2024 2:30 PM EST Office Visit [facility] [address] [place] [address] Rayne Medley, MYRON [address] [place] [address] 09/21/2024 10:15 AM EDT Office Visit [facility] [address] [place] [address] Name, MD Marty [address] [place] [address] Health Maintenance Due Date Last Done Comments CT Colonography 1968 Colonoscopy 1968 Colorectal Cancer Screening 1968 FIT DNA/Cologuard 1968 FIT 1968 FOBT 1968 HIV Screening 1968 Sigmoidoscopy 1968 Eye Exam 1978 Alcohol/Substance Use Screening 1980 Hepatitis C Screening 1986 Zoster Vaccines (1 of 2) 2018 Diabetes: Urine Protein Screening 05/07/2022 05/07/2021 Pneumococcal Vaccine: Pediatrics (0 to 5 Years) and At-Risk Patients (6 to 64 Years) (2 of 2 - PCV) 11/12/2022 11/12/2021 COVID-19 Vaccine ( season) 2024 06/18/2021, 09/27/2020, 08/22/2020 Influenza Vaccine (#1) 2024 04/01/2018, 2016 Diabetes: Hemoglobin A1C 07/10/2024 024, 04/11/2023, 05/07/2021, Additional history exists Lipid Panel 03/31/2025 03/31/2024, 04/10, 02/02/2020 Diabetes: Foot Exam 04/09/2025 04/09/2024, 04/09/2024, 04/09/2024, Additional history exists Depression Screening 07/05/2025 07/05/2024, 07/05/19 SDOH Screening 07/05/2025 07/05/2024 Tobacco Screening 07/05/2025 07/05/2024 DTaP/Tdap/Td Vaccines (2 - Td or Tdap) 05/19/2027 05/19/2017 RSV Patients and Patients Aged 60 years or older (1 - 1-dose 75+ series) 10/19/2043 Hepatitis B Vaccines Completed 09/02/2019, 04/12/2019, 03/11/2019 HIB Vaccines Aged Out No longer eligi ble based on patient's age to complete this topic HPV Vaccines Aged Out No longer eligi ble based on patient's age to complete this topic Hepatitis A Vaccines Aged Out No long er eligible based on patient's age to complete this topic IPV Vaccines Aged Out No longer eligi ble based on patient's age to complete this topic Meningococcal Vaccine Aged Out No turner surinder eligible based on patient's age to complete this topic RSV under 20 months Aged Out No longe r eligible based on patient's age to complete this topic Rotavirus Vaccines Aged Out No longer eligible based on patient's age to complete this topic Procedures Procedure Name Priority Date/Time Associated Diagnosis Comments CBC WITH AUTO DIFFERENTIAL Routine 07/05/2024 4:23 PM EST Foot pain, bilateral Elevated hemoglobin A1c COMPREHENSIVE METABOLIC PANEL Routine 07/05/2024 4:23 PM EST Foot pain, bilateral Elevated hemoglobin A1c POCT GLYCATED HEMOGLOBIN, TOTAL Routine 04/09/2024 3:39 PM EDT Type 2 diabetes mellitus with diabetic neuropathy, unspecified whether termite control service representative insulin use ([facility]) POCT GLUCOSE Routine 04/09/2024 3:38 PM EDT Type 2 diabetes mellitus with diabetic neuropathy, unspecified whether termite control service representative insulin use ([facility]) LIPID PANEL, STANDARD Routine 03/31/2024 3:40 PM EDT Dietary counseling ALBUMIN, RANDOM URINE W/CREATININE Routine 05/07/2021 1:12 PM EST from Last 3 Months or Most Recently Relevant to Health Maintenance Results * (ABNORMAL) CBC auto differential (07/05/2024 4:23 PM EST) White Blood Count 12.3(H) 4.8 - 10.8 X10*3/uL [facility] Red Blood Count 5.67 4.60 - 5.80 X10*6/uL [facility] Hemoglobin 14.5 14.0 - 18.0 g/dl [facility] Hematocrit 45.2 42.0 - 52.0 % [facility] Mean Corpuscular Volume 79.7(L) 80.0 - 98.0 fL [facility] Mean Corpuscular Hemoglobin 25.6(L) 27.0 - 33.0 pg [facility] Mean Corpuscular HGB Conc 32.1 31.0 - 36.0 g/dl [facility] Red Cell Distribution Width 13.9 11.0 - 16.0 % [facility] Platelet Count 1,864(HH) 160 - 400 X10*3/uL [facility] Comment:Results of PLT garcia d to and read back by DR Hodge 07/05/24 at 1849 by [place]. Mean Platelet Volume 8.7(L) 9.4 - 12.4 fL [facility] Neutrophils Percent Auto 74.6(H) 45 - 73 % [facility] Imm Gran Pct Auto 1.4(H) 0.0 - 0.4 % [facility] Lymphocytes Percent Auto 12.8(L) 20 - 40 % [facility] Monocytes Percent Auto 8.2 2 - 11 % [facility] Eosinophils Percent Auto 2.3 0 - 4 % [facility] Basophils Percent Auto 0.7 0 - 2 % [facility] NRBC Pct Auto 0.0 0.0 - 0.2 /100WBC [facility] Neutrophils Absolute Auto 9.2(H) 2.0 - 8.3 x10*3/uL [facility] Imm Gran Abs Auto 0.17(H) 0.00 - 0.03 X10*3/uL [facility] Lymphocytes Absolute Auto 1.6 1.2 - 4.9 X10*3/uL [facility] Monocytes Absolute Auto 1.0 0.1 - 1.2 X10*3/uL [facility] Eosinophils Absolute Auto 0.3 0.0 - 0.4 X10*3/uL [facility] Basophils Absolute Auto 0.1 0.0 - 0.2 X10*3/uL [facility] NRBC Abs Auto 0.000 0.0 - 0.012 X10*3/uL [facility] Blood Venous blood specimen / Unknown 07/05/2024 4:23 PM EST 07/05/2024 5:48 PM EST us Rayne Medley NP LAB BLOOD ORDERABLES Final Resul t [facility] [address] [place] [address] [phone] * (ABNORMAL) Comprehensive Metabolic Panel (07/05/2024 4:23 PM EST) Sodium 139 135 - 145 mmol/L [facility] Potassium 4.1 3.3 - 5.1 mmol/L [facility] Chloride 110(H) 96 - 108 mmol/L [facility] Carbon Dioxide 23 22 - 29 mmol/L [facility] Anion Gap 10(L) 12 - 20 [facility] Urea Nitrogen (BUN) 17(H) 9 - 16 mg/dL [facility] Creatinine, Serum 0.75 0.5 - 1.4 mg/dL [facility] Estimated Glomerular Filt Rate >60 [facility] Comment:Chronic Kidney Disea se: Estimated GFR < 60 mL/min/1.83p0Qqbwit Kidney Disease: Estimated GFR < 15 mL/min/1.73m2 Glucose 121(H) 60 - 115 mg/dL [facility] Calcium 9.5 8.4 - 10.2 mg/dL [facility] Bilirubin, Total 0.5 0.0 - 1.0 mg/dL [facility] Aspartate Amino Transferase 30 5 - 37 U/L [facility] Alanine Aminotransferase 29 0 - 40 U/L [facility] Total Protein 7.5 6.5 - 8.0 g/dL [facility] Albumin Level 4.1 3.5 - 5.0 g/dL [facility] Alkaline Phosphatase 91 39 - 117 U/L [facility] Blood Venous blood specimen / Unknown 07/05/2024 4:23 PM EST 07/05/2024 5:48 PM EST Rayne Medley NP LAB BLOOD ORDERABLES Final Resul t [facility] [address] [place] [phone] * (ABNORMAL) POCT HGB A1C (04/09/2024 3:39 PM EDT) Hemoglobin A1C 12.3(A) 4.0 - 6.0 % QC Media Lot # [id number] Lot# Expiration Date Blood 04/09/2024 3:39 PM EDT us Marty Friedman MD POINT OF CARE TEST ENTER/EDIT OR DERABLES Final Result * (ABNORMAL) POCT Glucose (04/09/2024 3:38 PM EDT) Glucose Blood, POC 320(A) 60 - 200 mg/dL QC Media Lot # [id number] Lot# Expiration Date 499 Blood Capillary blood specimen / Unknown 04/09/2024 3:38 PM EDT Marty Friedman MD POINT OF CARE TEST ENTER/EDIT OR DERABLES Final Result * (ABNORMAL) Lipid Panel, Standard (03/31/2024 3:40 PM EDT) Triglycerides 307(H) <150 mg/dL [facility] Comment:Desirable Triglyceri de: less than 150 mg/dLBorderline High Triglyceride 150-199 mg/dLHigh Triglyceride: 200-499 mg/dLVery High Triglyceride: greater than or equal to 5OO mg/dL Cholesterol 180 <200 mg/dL [facility] Comment:Desirable Cholestero l: less than 200 mg/dLBorderline High Cholesterol: 200-239 mg/dLHigh Cholesterol: greater than 239 mg/dL LDL Cholesterol Calculated 59 <100 mg/dL [facility] Comment:Desirable LDL: less than 100 mg/dLNear Optimal/Above Optimal LDL: 110- 129 mg/dLBorderline High LDL: 130-159 mg/dLHigh LDL: 160-189 mg/dLVery High LDL: greater than or equal to 190 mg/dL HDL Cholesterol 60 >40 mg/dL [facility] Comment:Desirable HDL: great er than 40 mg/dL Note: This HDL assay may give artificially low results in patients with liver disease. Blood Venous blood specimen / Unknown 03/31/2024 3:40 PM EDT 03/31/2024 4:09 PM EDT Emily Padilla CUSHION SPRING ASSEMBLER LAB BLOOD ORDERABLES Final Resu lt [facility] [address] [place] [phone] [phone] * ALBUMIN, RANDOM URINE W/CREATININE (05/07/2021 1:12 PM EST) Microalbumin Urine 2.1 See Note: mg/dL [facility] Comment: Reference Range: ?? Reference Range Not established Microalb/Creat Ratio 9 <30 mcg/mg creat [facility] Comment: ?? The ADA defines abnormalities in albumin excretion as follows: ?? Albuminuria Category ?Result (mcg/mg creatinine) ?? Normal to Mildly increased ?? <30 Moderately increased ? 30-299 ?? Severely increased ? > OR = 300 ?? The ADA recommends that at least two of three specimens collected within a 3-6 month period be abnormal before considering a patient to be within a diagnostic category. Creatinine, Urine 228 20 - 320 mg/dL [facility] 05/07/2021 1:12 PM EST us Salena Ruffin MD LAB URINE ORDERABLES Final R esult [facility] [address] [place] [address], from Last 3 Months or Most Recently Relevant to Health Maintenance [facility] * Guarantor: Lamin Jewell Account Type Relation to Patient Date of Phone Billing Address Personal/Family Self [address] [place] [address] * Guarantor: Lamin Jewell Account Type Relation to Patient Date of Phone Billing Address Personal/Family Self [address] [place] [address] Care Teams Exercise Instructor Relationship Specialty Start Date End Date Name, MD Marty [address] [place] [address] PCP - General Internal Medicine 03/31/24 Jenn Bryan PharmD [address] [place] [address] Pharmacist Internal Medicine 04/29/24
[2024-07-06 07:55] LABS: Estimated Average Glucose 258 mg/dL; Hemoglobin A1C 347.4493 umol/L; Hemoglobin A1c % 10.6 % (<6.0); Total Hemoglobin (HGBA1C) 3765.8528 umol/L
== END 2024-07-05 16:21 | disposition home or self-care (01) ==
LOC: HO.HHCL 16:20
PROVIDERS: Visit Provider Nurse Practitioner Family
DX: M79.671 Pain in right foot (principal); M79.672 Pain in left foot; R73.09 Other abnormal glucose
CPT/HCPCS: 36415; 80053; 83036; 85025

== ENCOUNTER 2024-09-13 15:21 | Outpatient (REF) | payer MEDICAID, SELFPAY ==
[2024-09-13 16:33] LABS: Estimated Glomerular Filt Rate > 60
--- OUTSIDE RECORDS SUMMARY | 2024-09-13 18:10 | XMS_ITS | Encounter Summary ---
Author Organization [employer] Address [address] [facility] [address] [place] [address] Care Team Providers Care Atm Mechanic Name Role Phone Name, Marty HOLDER Primary Care Provider [phone] Jenn Bryan PharmD Unavailable [phone] Rayne Medley NP Primary Care Provider [phone] Encounter Details Date Type Department Care Team (Late st Contact Info) Description 04/02/2024 Orders Only [facility] [address] [place] [address] Linh Thompson, ABDULLAHI Social History Tobacco Use Types Packs/Day Years [...] Care Team (Late st Contact Info) Description 10/13/2024 9:00 AM EDT Medication Management [facility] [address] [place] [phone] Jenn Bryan PharmD [address] [place] [address] [phone] 10/15/2024 3:30 PM EDT Office Visit [facility] [address] [place] [phone] Rayne Medley NP [address] [place], [place] [phone] documented as of this encounter Procedures Procedure Name Priority Date/Time Associated Diagnosis Comments CREATININE, SERUM Routine 09/13/2024 3:2 3 PM EDT documented in this encounter Results * Creatinine, Serum (09/13/2024 3:23 PM EDT) Creatinine, Serum 0.78 0.5 - 1.4 mg/dL [facility] Estimated Glomerular Filt Rate >60 [facility] Comment:Chronic Kidney Disea se: Estimated GFR < 60 mL/min/1.83m8Nprnvs Kidney Disease: Estimated GFR < 15 mL/min/1.73m2 09/13/2024 3:23 PM EDT 09/13/2024 4:07 PM EDT Emily Padilla FAMILY LIFE COUNSELOR LAB BLOOD ORDERABLES Final Resu lt [facility] [address] [place] [address] [phone] documented in this encounter Visit Diagnoses Not on filedocumented in this encounter Additional Health Concerns Assessment Noted Time PHQ-9 Depression Total Score: 9 04/11/20 23 3:59 PM EDT documented as of this encounter Care Teams Atm Mechanic Relationship Specialty Start Date End Date Name, MD Marty [address] [place] [phone] PCP - General Internal Medicine 03/31/24 07/08/24 Rayne Medley NP [address] [place] [phone] PCP - General Family Medicine 07/09/24 Jenn Bryan PharmD [address] [place] [phone] Pharmacist Internal Medicine 04/29/24 documented as of this encounter
--- OUTSIDE RECORDS SUMMARY | 2024-09-13 18:10 | XMS_ITS ---
Author Organization [employer] Address [address] [facility] [address] [place] [address] Care Team Providers Care Bark Peeler Name Role Phone Jenn Bryan PharmD Unavailable [phone] Rayne Medley NP Primary Care Provider [phone] [facility] Status:Enrolled (Active) Start date:09/09/2024 Enrollment date:09/09/2024 Enrollment reason:Referred by provider Overview SDOH Referral- Hi! This patient needs help with his utilities and other SDOH concerns Case Team Name Relationship Phone Cameron Sarkar (Responsible Staff) Continued Care and Services Coordination
--- OUTSIDE RECORDS SUMMARY | 2024-09-13 18:10 | XMS_ITS | Clinical Summary ---
Author Organization [employer] Address [address] [facility] [address] [place] [address] Care Team Providers Care Armhole Raiser Lockstitch Name Role Phone Jenn Bryan PharmD Unavailable [phone] Rayne Medley NP Primary Care Provider [phone] Allergies Active Allergy Reactions Criticality Noted Date Comments Metformin 08/24/2020 GI upset Medications lisinopril 5 MG tabletIndications: Benign essential hypertension TAKE 1 TABLET BY MOUTH EVERY MORNING 90 tablet 3 024 Active Multiple Vitamins-Minerals (CertaVite/Antioxi dants) tablet TAKE 1 TABLET BY MOUTH EVERY MORNING 90 tablet 3 024 Active glipiZIDE (Glucotrol) 5 MG tabletIndications: Type 2 diabetes mellitus with hyperosmolarity without coma, without long-term current use of insulin ([facility]) TAKE 4 TABLETS BY MOUTH TWICE DAILY IN THE MORNING AND THE EVENING 720 tablet 3 024 Active FREESTYLE LITE test stripIndications:D iabetes mellitus without complication ([facility]) TEST BLOOD SUGAR THREE TIMES DAILY 100 strip 11 024 Active anagrelide (Agrylin) 1 MG capsule TAKE 1 CAPSULE BY MOUTH THREE TIMES DAILY IN THE MORNING, EVENING, AND BEDTIME Active Blood Glucose Monitoring Suppl (FreeStyle [place] Lite) w/Device kit Use to test blood sugar 3 times daily 1 kit Active Blood Pressure kitIndications:Typ e 2 diabetes mellitus with diabetic neuropathy, with long-term current use of insulin ([facility]),Benign essential hypertension Use to check BP once daily as directed 1 kit Active Continuous Glucose Web Application Dev Specialist (FreeStyle Jovanni 2 [place]) deviceIndications: Type 2 diabetes mellitus with diabetic neuropathy, with long-term current use of insulin ([facility]) Use to scan sensor at least every 8 hours, as directed, for CGM 1 each Active Continuous Glucose Sensor (FreeStyle Jovanni 2 Sensor) miscIndications:Ty pe 2 diabetes mellitus with diabetic neuropathy, with long-term current use of insulin ([facility]) Apply 1 sensor, as directed, every 14 days for CGM 2 each Active glucose blood (FreeStyle Precision [place] Test) test stripIndications:T ype 2 diabetes mellitus with diabetic neuropathy, with long-term current use of insulin ([facility]) Use to test blood sugar up to 4 times daily, as directed 100 each Active TRUEplus Lancets 33G miscIndications:Ty pe 2 diabetes mellitus with diabetic neuropathy, with long-term current use of insulin ([facility]) TEST BLOOD SUGAR FOUR TIMES DAILY 100 each Active acetaminophen (Tylenol) 500 MG tablet Take 2 tablets (1,000 mg) by mouth every 6 (six) hours if needed for moderate pain or fever. 50 tablet Active Diclofenac Sodium 1 % gel Apply 4 g topically if needed in the morning, at noon, in the evening, and at bedtime (pain). 100 g Active Additional Information Patient not taking.Reported on 09/09/2024 cetirizine (ZyrTEC) 10 MG tabletIndications: Viral upper respiratory tract infection TAKE 1 TABLET BY MOUTH EVERY MORNING 90 tablet 1 Active amitriptyline (Elavil) 10 MG tablet TAKE 1 TABLET BY MOUTH AT BEDTIME 90 tablet Active Alcohol Swabs (Alcohol Prep) 70 % padsIndications:Ty pe 2 diabetes mellitus with diabetic neuropathy, unspecified whether superintendent marine oil terminal insulin use ([facility]) USE DIRECTED THREE TIMES DAILY 200 each 3 Active BD Pen Needle Ruth U/F 32G X 4 MM miscIndications:Di abetes mellitus without complication ([facility]) USE DIRECTED FOUR TIMES DAILY TO INJECT lantus AND humalog 100 each 1 025 Active Semaglutide,0.25 or 0.5MG/DOS, (Ozempic, 0.25 or 0.5 MG/DOSE,) 2 MG/3ML solution pen-injectorIndica tions:Type 2 diabetes mellitus with diabetic neuropathy, with long-term current use of insulin (CMS/HCC) Inject 0.25 mg under the skin 1 (one) time per week for 28 days, THEN 0.5 mg 1 (one) time per week for 28 days. 3 mL 1 025 2024 Active insulin degludec (Tresiba FlexTouch) 200 UNIT/ML injectionIndicatio ns:Type 2 diabetes mellitus with diabetic neuropathy, with long-term current use of insulin (CMS/HCC) Inject 44 units subQ once daily as directed 9 mL 1 Active insulin lispro (HumaLOG) 100 UNIT/ML injectionIndicatio ns:Type 2 diabetes mellitus with diabetic neuropathy, with long-term current use of insulin ([facility]) Inject 20 units subQ up to three times daily with meals. 15 mL 1 025 Active cromolyn (Opticrom) 4 % ophthalmic solution INSTILL 1 DROP INTO THE AFFECTED EYE(S) FOUR TIMES DAILY 022 2024 Discontinued(M ed list cleanup (will not trigger notification to Pharmacy)) insulin lispro (HumaLOG) 100 UNIT/ML injectionIndicatio ns:Type 2 diabetes mellitus with diabetic neuropathy, with long-term current use of insulin ([facility]) Inject 10 units subQ up to three times daily with meals. 15 mL 2 024 2024 Discontinued(R eorder (will not trigger notification to Pharmacy)) insulin degludec (Tresiba FlexTouch) 200 UNIT/ML injectionIndicatio ns:Type 2 diabetes mellitus with diabetic neuropathy, with long-term current use of insulin (CMS/HCC) Inject 40 units subQ once daily as directed 9 mL 5 024 2024 Discontinued(R eorder (will not trigger notification to Pharmacy)) Tirzepatide (Mounjaro) 5 MG/0.5ML solution auto-injectorIndic ations:Type 2 diabetes mellitus with diabetic neuropathy, with long-term current use of insulin (CMS/HCC) Inject 5 mg under the skin 1 (one) time per week. 2 mL 11 024 2024 Discontinued(A lternate therapy) Tirzepatide (Mounjaro) 2.5 MG/0.5ML solution auto-injectorIndic ations:Type 2 diabetes mellitus with diabetic neuropathy, with long-term current use of insulin ([facility]) Inject 2.5 mg under the skin 1 (one) time per week. 2 mL 024 2024 Discontinued(A lternate therapy) Pentips Generic Pen Bogard 32G X 4 MM miscIndications:Di abetes mellitus without complication ([facility]) DIRECTED FOUR TIMES DAILY TO INJECT lantus AND humalog 100 each 025 2024 Discontinued sertraline (Zoloft) 50 MG tablet TAKE 1 TABLET BY MOUTH EVERY MORNING 30 tablet 1 025 2024 Discontinued(P atient refused) gabapentin (Neurontin) 100 MG capsuleIndications :Foot pain, bilateral,Type 2 diabetes mellitus with diabetic neuropathy, unspecified whether superintendent marine oil terminal insulin use ([facility]),Elevated hemoglobin A1c Take 1 capsule (100 mg) by mouth at bedtime for 3 days, THEN 2 capsules (200 mg) at bedtime for 3 days, THEN 3 capsules (300 mg) at bedtime for 24 days. 81 capsule 025 2024 Discontinued(S erika effects) Active Problems Problem Noted Date Diagnosed Date Dietary counseling 09/13/2024 Assessment & Plan (09/13/2024 2:32 PM EDT): Dietary Recommendations: Fruits, vegetables, whole grains, protein foods, and fat-free or low-fat dairy products are healthy choices. Eat different types of protein foods in your diet. This can include seafood, lean meats, poultry, beans, peas, lentils, nuts, seeds, soy products, and eggs. Limit foods and beverages higher in added sugars, saturated fat, and sodium. Exercise Recommendations: At least 150 minutes of moderate-intensity physical activity per week, or an equivalent combination of moderate- and vigorous-intensity activity Exercise counseling 09/13/2024 Urge incontinence of urine 09/13/2024 Hyperglycemia 09/13/2024 Assessment & Plan (09/13/2024 3:00 PM EDT): Stop humalog, Has not started tresiba has not started ozempic Start tresiba at 15 units nightly for 3 nights, Neuropathic pain of both feet 08/31/2024 Assessment & Plan (09/13/2024 2:31 PM EDT): Impairing ability to walk 200 meters. Will sign christopher, Assessment & Plan (08/31/2024 3:55 PM EDT): Ongoing neuropathy x3 months. Previously prescribed Gabapentin, pt discontinued since he reports not helping. Referred to Podiatry, pt no showed and reports due to his feet hurting. Today wrapped/tapped feet with medical tape for plantar fascitis component. Foot pain, bilateral 07/05/2024 Assessment & Plan (07/31/2024 1:14 PM EST): Pt history and exam consistent with diabetic neuropathy, reviewed importance of glucose control reviewed Treatments reviewed, pt opts for trial of gabapentin Should pt develop swelling, unilateral pain or loss of sensation reviewed urgency of evaluation given thrombocytosis, Referral to podiatry Labs as ordered below Elevated hemoglobin A1c 07/05/2024 Assessment & Plan (07/31/2024 1:15 PM EST): Labs as ordered below Referral to podiatry and eye care Pt declines DNE or nutrition today Type 2 diabetes mellitus with diabetic neuropath [...] at least twice daily Referral placed to CD to start patient on CGM Referral to vision center placed today for routine eye exam Benign essential hypertension 02/01/2020 Thrombocytosis 02/01/2020 Assessment & Plan (08/31/2024 3:54 PM EDT): Discussed recent labs from 07/05/24. Urged the importance of following up with Henatology. Per last hematology note on 03/2024: Pt initially presented with platelet count over 1 million. CALR mutation detected. Discussed performing a bone marrow aspiration/biopsy, pt cancelled nuris multiple times. Bcr/abl mutation negative. Pt continued to be noncompliant with medications. He was originally on 2000 mg hydroxyurea a day and reported dizziness. Switched to Anagrelide 1 mg TID, but pt also self discontinued due to reported dizziness. Started back on the hydroxyurea and increased to 3000 mg TID, but had no improvement. AT this visit pt was switched back to Anagrelide and instructed to follow-up in 1 month. There is no records of follow-ups and pt today declines following up with hematology since. Assessment & Plan (07/31/2024 1:15 PM EST): Outreach to patient regarding urgency of follow up with hematology Resolved Problems Problem Noted Date Diagnosed Date Resolved Date Diabetes mellitus without complication 02/06/2020 09/13/2024 Encounters Date Type Department Care Team Description 09/13/2024 1:45 PM EDT Office Visit [facility] [address] [place] [phone] Rayne Medley NP Neuropathic pain of both feet (Primary Dx); Type 2 diabetes mellitus with diabetic neuropathy, unspecified whether superintendent marine oil terminal insulin use ([facility]); Thrombocytosis; Dietary counseling; Exercise counseling; Urge incontinence of urine; Hyperglycemia 09/13/2024 Patient Outreach [facility] [address] [place] [phone] Rayne Medley NP Care Coordination ([facility]JOSEW Cameron Sarkar TC transportation ) 09/13/2024 Travel 09/13/2024 Patient Outreach [facility] [address] [place] [phone] Rayne Medley NP 09/09/2024 Patient Outreach [facility] [address] [place] [address] Rayne Medley NP Care Coordination ([facility]W Cameron Sarkar, [facility] initial assessment_enrolled ) 09/09/2024 Patient Outreach [facility] [address] [place] [phone] Rayne Medley NP Care Coordination ([facility]W Cameron Sarkar, Chart review ) 09/09/2024 Patient Outreach [facility] [address] [place] [phone] Rayne Medley NP 09/09/[address] [phone] Jenn Bryan PharmD Prior Authorization (Ozempic) 09/08/2024 Travel 09/06/2024 Telephone [facility] [address] [place] [phone] Rayne Medley NP 08/31/2024 3:40 PM EDT Office Visit [facility] [address] [place] [phone] Bonita Perez MD Thrombocytosis (Primary Dx); Neuropathic pain of both feet 08/31/2024 Telephone [facility] [address] [place] [address] Tanya Gonzalez OD 08/20/2024 Population Health Risk Score [facility] () Department [address] [place] [phone] Provider, Population Health Generic 08/20/2024 Refill [facility] [address] [place], [place] [phone] Jayna Strickland NP Diabetes mellitus without complication (CMS/HCC) 08/03/2024 Telephone [facility] [address] [place] [phone] Rayne Medley NP No Show 08/03/2024 Refill [facility] [address] [place] [phone] Name, MD Marty Type 2 diabetes mellitus with diabetic neuropathy, unspecified whether superintendent marine oil terminal insulin use (CMS/HCC) 08/02/2024 Refill [facility] [address] [place] [phone] Marty Friedman MD 07/27/2024 Telephone [facility] [address] [place] [phone] Linda Girard MA Chart Prep 07/06/[address] [address] Suzy Roque RN 07/05/2024 2:30 PM EST Office Visit [facility] [address] [place] [phone] Rayne Medley NP Foot pain, bilateral (Primary Dx); Type 2 diabetes mellitus with diabetic neuropathy, unspecified whether detention insulin use ([facility]); Elevated hemoglobin A1c; Thrombocytosis 07/05/2024 Telephone [facility] [address] [place] [phone] Tristin Barnes MD 07/05/2024 Travel 07/01/2024 Telephone [facility] [address] [place] [phone] Marty Friedman MD Nurse Triage 06/27/2024 Refill [facility] [address] [place] [phone] Marty Friedman MD 06/23/2024 Patient Outreach [address] [address] Marty Friedman MD Pre-visit Planning (Not in service) 06/22/2024 Refill [facility] [address] [place] [address] Marty Friedman MD Diabetes mellitus without complication ([facility]) from Last 3 Months Immunizations Name Administration [...] before you got money to buy more: Often true 09/09/2024 Within the past 12 months,th e food you bought just didn't last and you didn't have enough money to get more: Often true 08/2024 Transportation Answer Date Recorded In the past 12 months, has l ack of transportation kept you from medical appts, meetings, work or from getting things needed for daily living? No;Yes, it has kept me from medical appointments or getting medications. 09/09/2024 Utilities Answer Date Recorded In the past 12 months, has t he electric, gas, oil or water company threatened to shut off services in your home? Yes 09/09/2024 Depression Answer Date Recorded Patient Health Questionnaire-2 [...] Sign Reading Time Taken Comments Blood Pressure 158/92 09/13/2024 1:57 PM EDT Pulse 107 09/13/2024 1:57 PM EDT Temperature 36.2 ??C (97.1 ??F) 09/13/2024 1:57 PM ED T Respiratory Rate 20 09/13/2024 1:57 PM EDT Oxygen Saturation 97% 08/31/2024 3:18 PM EDT Inhaled Oxygen Concentration - - Weight 98 kg (216 lb 2 oz) 09/13/2024 1:57 PM ED T Height 170.2 cm (5' 7 ) 09/13/2024 1:57 PM EDT Body Mass Index 33.85 09/13/2024 1:57 PM EDT Plan of Treatment Upcoming Encounters Date Type Department Care Team (Late st Contact Info) Description 10/13/2024 9:00 AM EDT Medication Management [facility] [address] [place] [phone] Jenn Bryan, PharmD [address] [place] [address] 10/15/2024 3:30 PM EDT Office Visit [facility] [address] [place] [address] Rayne Medley, MYRON [address] [place] [address] Health Maintenance Due Date Last Done Comments CT Colonography 1968 Colonoscopy 1968 Colorectal Cancer Screening 1968 FIT DNA/Cologuard 1968 FIT 1968 FOBT 1968 HIV Screening 1968 Sigmoidoscopy 1968 Eye Exam 1978 Alcohol/Substance Use Screening 1980 Hepatitis C Screening 1986 Zoster Vaccines (1 of 2) 2018 Diabetes: Urine Protein Screening 05/07/2022 05/07/2021 Pneumococcal Vaccine: 50+ Years (2 of 2 - PCV) 11/12/2022 11/12/2021 COVID-19 Vaccine ( season) 2024 06/18/2021, 09/27/2020, 08/22/2020 Influenza Vaccine (#1) 2024 04/01/2018, 2016 Diabetes: Hemoglobin A1C 10/03/2024 025, 04/09/2024, 04/11/2023, Additional history exists Lipid Panel 03/31/2025 03/31/2024, 04/10, 02/02/2020 Diabetes: Foot Exam 04/09/2025 04/09/2024, 04/09/2024, 04/09/2024, Additional history exists Depression Screening 07/05/2025 07/05/2024, 07/05/19 SDOH Screening 09/09/2025 09/09/2024 Tobacco Screening 09/13/2025 09/13/2024 DTaP/Tdap/Td Vaccines (2 - Td or Tdap) [...] SERUM Routine 09/13/2024 3:2 3 PM EDT POCT GLUCOSE Routine 09/13/2024 1:59 PM EDT Type 2 diabetes mellitus with diabetic neuropathy, unspecified whether superintendent marine oil terminal insulin use ([facility]) CBC WITH AUTO DIFFERENTIAL Routine 07/05/2024 4:23 PM EST Foot pain, bilateral Elevated hemoglobin A1c HEMOGLOBIN A1C Routine 07/05/2024 4:23 PM EST Foot pain, bilateral Elevated hemoglobin A1c COMPREHENSIVE METABOLIC PANEL Routine 07/05/2024 4:23 PM EST Foot pain, bilateral Elevated hemoglobin A1c LIPID PANEL, STANDARD Routine 03/31/2024 3:40 PM EDT Dietary counseling ALBUMIN, RANDOM URINE W/CREATININE Routine 05/07/2021 1:12 PM EST from Last 3 Months or Most Recently Relevant to Health Maintenance Results * Creatinine, Serum (09/13/2024 3:23 PM EDT) Pathologist [facility] Creatinine, Serum 0.78 0.5 - 1.4 mg/dL [facility] Estimated Glomerular Filt Rate >60 [facility] Comment:Chronic Kidney Disea se: Estimated GFR < 60 mL/min/[id number] Kidney Disease: Estimated GFR < 15 mL/min/1.73m2 09/13/2024 3:23 PM EDT 09/13/2024 4:07 PM EDT Emily Padilla CORK INSULATOR HELPER LAB BLOOD ORDERABLES Final Resu lt [facility] [address] [place] [phone] * POCT Glucose (09/13/2024 1:59 PM EDT) Pathologist [facility] Glucose Blood, POC 163 60 - 200 mg/dL QC Media Lot # [id number] Lot# Expiration Date Blood Capillary blood specimen / Unknown 09/13/2024 1:59 PM EDT Rayne Medley INTERACTIVE MEDIA DESIGNER POINT OF CARE TEST ENTER/EDIT OR DERABLES Final Result * (ABNORMAL) CBC auto differential (07/05/2024 4:23 PM EST) Pathologist [facility] White Blood Count 12.3(H) 4.8 - 10.8 X10*3/uL [facility] Red Blood Count 5.67 4.60 - 5.80 X10*6/uL [facility] Hemoglobin 14.5 14.0 - 18.0 g/dl [facility] Hematocrit 45.2 42.0 - 52.0 % [facility] Mean Corpuscular Volume 79.7(L) 80.0 - 98.0 fL [facility] Mean Corpuscular Hemoglobin 25.6(L) 27.0 - 33.0 pg [facility] Mean Corpuscular HGB Conc 32.1 31.0 - 36.0 g/dl [facility] Red Cell Distribution Width 13.9 11.0 - 16.0 % [facility] Platelet Count 1,864(HH) 160 - 400 X10*3/uL [facility] Comment:Results of PLT garcia d to and read back by DR Hodge 07/05/24 at 1849 by WILMER. Mean Platelet Volume 8.7(L) 9.4 - 12.4 fL [facility] Neutrophils Percent Auto 74.6(H) 45 - 73 % [facility] Imm Gran Pct Auto 1.4(H) 0.0 - 0.4 % [facility] Lymphocytes Percent Auto 12.8(L) 20 - 40 % [facility] Monocytes Percent Auto 8.2 2 - 11 % [facility] Eosinophils Percent Auto 2.3 0 - 4 % [facility] Basophils Percent Auto 0.7 0 - 2 % [facility] NRBC Pct Auto 0.0 0.0 - 0.2 /100WBC [facility] Neutrophils Absolute Auto 9.2(H) 2.0 - 8.3 x10*3/uL [facility] Imm Gran Abs Auto 0.17(H) 0.00 - 0.03 X10*3/uL [facility] Lymphocytes Absolute Auto 1.6 1.2 - 4.9 X10*3/uL [facility] Monocytes Absolute Auto 1.0 0.1 - 1.2 X10*3/uL [facility] Eosinophils Absolute Auto 0.3 0.0 - 0.4 X10*3/uL [facility] Basophils Absolute Auto 0.1 0.0 - 0.2 X10*3/uL [facility] NRBC Abs Auto 0.000 0.0 - 0.012 X10*3/uL [facility] Blood Venous blood specimen / Unknown 07/05/2024 4:23 PM EST 07/05/2024 5:48 PM EST us Rayne Medley INTERACTIVE MEDIA DESIGNER LAB BLOOD ORDERABLES Final Resul t Performing Organization Address [facility] Co de Phone Number [facility] [address] [place] [phone] * (ABNORMAL) Hemoglobin A1c (07/05/2024 4:23 PM EST) Hemoglobin A1c 10.6(H) <6.0 % [facility] Comment:Hemoglobin A1C Refer ence Range Adults: 4.8 - 6.0 % Non diabetic: < 6.0 % Goal: < 7.0 %Additional Action Suggested: > 8.0 %Note: Hemoglobin A1c results are invalid for patients with abnormal amounts of HbF. Blood transfusions may impact the HbA1c concentration in the patient sample. Estimated Average Glucose 258 mg/dL [facility] Comment:eAG = Estimated ave rage glucose which is %A1C expressed asaverage glucose, using the formula of the [id number] Glucose study (ADAG), Diabetes Care, Vol.31,#8,Jan. 2007 Blood Venous blood specimen / Unknown 07/05/2024 4:23 PM EST 07/05/2024 5:48 PM EST us Rayne Medley INTERACTIVE MEDIA DESIGNER LAB BLOOD ORDERABLES Final Resul t Performing Organization Address [facility] Co de Phone Number [facility] [address] [place] [address] [phone] * (ABNORMAL) Comprehensive Metabolic Panel (07/05/2024 4:23 PM EST) Sodium 139 135 - 145 mmol/L [facility] Potassium 4.1 3.3 - 5.1 mmol/L [facility] Chloride 110(H) 96 - 108 mmol/L [facility] Carbon Dioxide 23 22 - 29 mmol/L [facility] Anion Gap 10(L) 12 - 20 [facility] Urea Nitrogen (BUN) 17(H) 9 - 16 mg/dL [facility] Creatinine, Serum 0.75 0.5 - 1.4 mg/dL [facility] Estimated Glomerular Filt Rate >60 [facility] Comment:Chronic Kidney Disea se: Estimated GFR < 60 mL/min/1.42f6Sdustj Kidney Disease: Estimated GFR < 15 mL/min/1.73m2 Glucose 121(H) 60 - 115 mg/dL [facility] Calcium 9.5 8.4 - 10.2 mg/dL [facility] Bilirubin, Total 0.5 0.0 - 1.0 mg/dL [facility] Aspartate Amino Transferase 30 5 - 37 U/L [facility] Alanine Aminotransferase 29 0 - 40 U/L [facility] Total Protein 7.5 6.5 - 8.0 g/dL [facility] Albumin Level 4.1 3.5 - 5.0 g/dL [facility] Alkaline Phosphatase 91 39 - 117 U/L [facility] Blood Venous blood specimen / Unknown 07/05/2024 4:23 PM EST 07/05/2024 5:48 PM EST us Rayne Medley NP LAB BLOOD ORDERABLES Final Resul t [facility] [address] [place] [phone] [phone] * (ABNORMAL) Lipid Panel, Standard (03/31/2024 3:40 PM EDT) Triglycerides 307(H) <150 mg/dL [facility] Comment:Desirable Triglyceri de: less than 150 mg/dLBorderline High Triglyceride 150-199 mg/dLHigh Triglyceride: 200-499 mg/dLVery High Triglyceride: greater than or equal to 5OO mg/dL Cholesterol 180 <200 mg/dL [facility] Comment:Desirable Cholestero l: less than 200 mg/dLBorderline High Cholesterol: 200-239 mg/dLHigh Cholesterol: greater than 239 mg/dL LDL Cholesterol Calculated 59 <100 mg/dL [facility] Comment:Desirable LDL: less than 100 mg/dLNear Optimal/Above Optimal LDL: 110- 129 mg/dLBorderline High LDL: 130-159 mg/dLHigh LDL: 160-189 mg/dLVery High LDL: greater than or equal to 190 mg/dL HDL Cholesterol 60 >40 mg/dL [facility] Comment:Desirable HDL: great er than 40 mg/dL Note: This HDL assay may give artificially low results in patients with liver disease. Blood Venous blood specimen / Unknown 03/31/2024 3:40 PM EDT 03/31/2024 4:09 PM EDT us Emily Padilla CORK INSULATOR HELPER LAB BLOOD ORDERABLES Final Resu lt Performing Organization Address [facility] de Phone Number [facility] [address] [place] [address] [phone] * ALBUMIN, RANDOM URINE W/CREATININE (05/07/2021 [...] MD LAB URINE ORDERABLES Final R esult Performing Organization Address [facility] Co de Phone Number [facility] [address] [place] [address], [place] from Last 3 Months or Most Recently Relevant to Health Maintenance Insurance [facility] C3 Care Teams Armhole Raiser Lockstitch Relationship Specialty Start Date End Date Rayne Medley NP [address] [place] [address] PCP - General Family Medicine 07/09/24 Jenn Bryan PharmD [address] [place] [address] Pharmacist Internal Medicine 04/29/24
--- OUTSIDE RECORDS SUMMARY | 2024-09-13 18:11 | XMS_ITS | Encounter Summary ---
Author Organization [employer] Address [address] [facility] 7t [place] [address] Care Team Providers Care Grinding Operator Name Role Phone Jenn Bryan PharmD Unavailable [phone] Rayne Medley NP Primary Care Provider [phone] Encounter Details Date Type Department Care Team ([facility] st Contact Info) Description 09/09/2024 Patient Outreach [facility] MEDICINE [address] [place] [address] Rayne Medley, MYRON [address] [place] [address] Social History Tobacco Use Types Packs/Day Years [...] Description 10/13/2024 9:00 AM EDT Medication Management [facility] MEDICINE [address] [place] [address] Jenn Bryan PharmD [address] [place] [address] 10/15/2024 3:30 PM EDT Office Visit [facility] MEDICINE [address] [place] [address] Rayne Medley NP [address] [place] [address] documented as of this encounter Visit Diagnoses Not on filedocumented in this encounter Additional Health Concerns Assessment Noted Time PHQ-9 Depression Total Score: 4 07/05/19 2:47 PM EST documented as of this encounter Care Teams Grinding Operator Relationship Specialty Start Date End Date Rayne Medley NP [address] [place] [address] PCP - General Family Medicine 07/09/24 Jenn Bryan PharmD [address] [place] [address] Pharmacist Internal Medicine 04/29/24 documented as of this encounter
--- OUTSIDE RECORDS SUMMARY | 2024-09-13 18:11 | XMS_ITS | Encounter Summary ---
Author Organization [employer] Address 75 [facility] 7t [place] [address] Care Team Providers Care Tin Flopper Name Role Phone Jenn Bryan PharmD Unavailable [phone] Rayne Medley NP Primary Care Provider [phone] Encounter Details Date Type Department Care Team (Latest Contact Info) Description 09/08/2024 Travel Social History Tobacco Use Types Packs/Day [...] Description 10/13/2024 9:00 AM EDT Medication Management [facility] [address] [place] [address] Jenn Bryan PharmD [address] [place] [address] 10/15/2024 3:30 PM EDT Office Visit [facility] [address] [place] [address] Rayne Medley NP [address] [place] [address] documented as of this encounter Visit Diagnoses Not on filedocumented in this encounter Additional Health Concerns Assessment Noted Time PHQ-9 Depression Total Score: 4 07/05/19 25 2:47 PM EST documented as of this encounter Care Teams Tin Flopper Relationship Specialty Start Date End Date Rayne Medley NP [address] [place] [address] PCP - General Family Medicine 07/09/24 Jenn Bryan PharmD [address] [place] [address] [phone] Pharmacist Internal Medicine 04/29/24 documented as of this encounter
--- OUTSIDE RECORDS SUMMARY | 2024-09-13 18:11 | XMS_ITS | Encounter Summary ---
Author Organization [employer] Address 75 [facility] 7t [place] [address] Care Team Providers Care Rack Washer Name Role Phone Jenn Bryan PharmD Unavailable [phone] Rayne Medley NP Primary Care Provider [phone] Reason for Visit * Reason Comments Care Coordination C3/W JENNIFER Yoon initial assessment_enrolled Encounter Details Date Type Department Care Team (Latest Contact Info) Description 09/09/2024 Patient Outreach [facility] MEDICINE [address] [place] [address] Rayne Medley NP [address] [place] [address] Care Coordination (CM/JENNIFER Braun initial assessment_enrolled ) Social History Tobacco Use Types Packs/Day Years [...] as of this encounter Progress Notes * Cameron Sarkar - 09/09/2024 2:14 PM EDT CHW Cameron Sarkar, placed outbound call to patient introducing herself from [facility] CM Department, in regards to offering CM Program for SDOH needs. Patient's name and was confirmed. Patient agrees to participate in program. SDOH assessment done today. Patient has food, utility and transportation insecurities. CHW introduced the [facility] Nutrition Program. Program details explainedto the patient. Patient agreeable to participate in the program. Referral placed. CHW submitted PT1for [facility] and [facility] today. Patient has a f/u appt at [facility] on 09/13/24 @1:45 pm. CHW will assist with scheduling transportation once PT1 is approved. Patient received a shut off notice for utilities. Patient will meet with CHW on 09/13/24 to submit a [employer] RAFT and VOC application. Patient verbalized understanding and agrees with plan. documented in this encounter Plan of Treatment Upcoming Encounters Date Type Department Care Team (Late st Contact Info) Description 10/13/2024 9:00 AM EDT Medication Management [facility] [place] [address] Jenn [place] [address] 10/15/2024 3:30 PM EDT Office Visit [facility] MEDICINE [address] [place] [address] Rayne Medley NP [address] [place] [address] documented as of this encounter Visit Diagnoses Not on filedocumented in this encounter Additional Health Concerns Assessment Noted Time PHQ-9 Depression Total Score: 4 07/05/19 25 2:47 PM EST documented as of this encounter Care Teams Rack Washer Relationship Specialty Start Date End [place] [address] PCP - General Family Medicine 07/09/24 [place] [address] Pharmacist Internal Medicine 04/29/24 documented as of this encounter
--- OUTSIDE RECORDS SUMMARY | 2024-09-13 18:11 | XMS_ITS | Encounter Summary ---
Author Organization [employer] Address [address] [facility] 7t [place] [address] Care Team Providers Care Sleep Manager Name Role Phone Jenn Bryan PharmD Unavailable [phone] Rayne Medley NP Primary Care Provider [phone] Reason for Visit * Reason Onset Date Comments Prior Authorization 09/09/2024 Ozempic Encounter Details Date Type Department Care Team ([facility] Contact Info) Description 09/09/2024 Telephone [facility] MEDICINE [address] [place] [address] Jenn Bryan, PharmD [address] [place] [address] Prior Authorization (Ozempic) Social History Tobacco Use Types Packs/Day Years [...] encounter Miscellaneous Notes * Telephone Encounter - Jenn Bryan PharmD - 09/09/2024 12:48 PM EDT [facility]coming [facility] from [facility] prepared & faxed PA to plan today; awaiting response at this time & patient is aware. PA packet sent to HIM for upload into EHR. FYI to PA team - this request is all set. documented in this encounter Plan of Treatment Upcoming Encounters Date Type Department Care Team (Late st Contact Info) Description 10/13/2024 9:00 AM EDT Medication Management [facility] MEDICINE [address] [place] [address] Jenn Bryan PharmD [address] [place] [address] 10/15/2024 3:30 PM EDT Office Visit [facility] MEDICINE [address] [place] [address] Rayne Medley NP [address] [place] [address] documented as of this encounter Visit Diagnoses Not on filedocumented in this encounter Additional Health Concerns Assessment Noted Time PHQ-9 Depression Total Score: 4 07/05/19 25 2:47 PM EST documented as of this encounter Care Teams Sleep Manager Relationship Specialty Start Date End Date Rayne Medley NP [address] [place] [address] PCP - General Family Medicine 07/09/24 Jenn Bryan PharmD [address] [place] [address] Pharmacist Internal Medicine 04/29/24 documented as of this encounter
--- OUTSIDE RECORDS SUMMARY | 2024-09-13 18:11 | XMS_ITS | Encounter Summary ---
Author Organization [employer] Address 75 [facility] 7t [place] [address] Care Team Providers Care Youth Coordinator Name Role Phone Jenn Bryan PharmD Unavailable [phone] Rayne Medley NP Primary Care Provider [phone] Reason for Referral * Consultation (Routine) - Pending Review Specialty Diagnoses / Procedures Referred By Fabian watson Referred To Contact Urology Diagnoses Urge incontinence of urine Rayne Medley NP [address] [place] [address] Phone: tel: fax: Referral ID Status Reason Start Date Expiration Date Visits Requested Visits Authorized [id number] Pending Review Specialty Services Required 09/13/2024 09/13/2025 1 1 * Consultation (Urgent) - Pending Review Specialty Diagnoses / Procedures Referred By Fabian watson Referred To Contact Hematology and Oncology Diagnoses Type 2 diabetes mellitus with diabetic neuropathy, unspecified whether petroleum terminal plant operator insulin use ([facility]) Thrombocytosis Rayne Medley NP [address] [place] [address] Phone: tel: fax: Referral ID Status Reason Start Date Expiration Date Visits Requested Visits Authorized [id number] Pending Review Specialty Services Required 09/13/2024 09/13/2025 1 1 Encounter Details Date Type Department Care Team (Late st Contact Info) Description 09/13/2024 1:45 PM EDT Office Visit [facility] MEDICINE [address] [place] [address] Rayne Medley, MYRON [address] [place] [address] Neuropathic pain of both feet (Primary Dx); Type 2 diabetes mellitus with diabetic neuropathy, unspecified whether prison insulin use ([facility]); Thrombocytosis; Dietary counseling; Exercise counseling; Urge incontinence of urine; Hyperglycemia Social History Tobacco Use Types Packs/Day Years [...] your housing situation today? I have bob raghavendra 07/05/[address] you li [...] t he electric, gas, oil or water [employer] threatened to shut off services in your [...] 20 09/13/2024 1:57 PM EDT Oxygen Saturation - - Inhaled Oxygen Concentration - - Weight 98 kg (216 lb 2 oz) 09/13/2024 1:57 PM ED T Height 170.2 cm (5' 7 ) 09/13/2024 1:57 PM EDT Body Mass Index 33.85 09/13/2024 1:57 PM EDT documented in this encounter Miscellaneous Notes * Assessment & Plan Note - Rayne Medley NP - 09/13/2024 3:00 PM EDTAssociated Problem(s): Hyperglycemia Stop humalog, Has not started tresiba has not started ozempic Start tresiba at 15 units nightly for 3 nights, * Assessment & Plan Note - Rayne Medley NP - 09/13/2024 2:32 PM EDTAssociated Problem(s): Dietary counseling Dietary Recommendations: Fruits, vegetables, whole grains, protein foods, and fat-free or low-fat dairy products are healthychoices. Eat different types of protein foods in your diet. This can include seafood, lean meats, poultry, beans, peas, lentils, nuts, seeds, soy products, and eggs. Limit foods and beverages higher in added sugars, saturated fat, and sodium. Exercise Recommendations: At least 150 minutes of moderate-intensity physical activity per week, or an equivalent combinationof moderate- and vigorous-intensity activity * Assessment & Plan Note - Rayne Medley NP - 09/13/2024 2:31 PM EDTAssociated Problem(s): Neuropathic pain of both feet Impairing ability to walk 200 meters. Will sign placard, documented in this encounter Plan of Treatment Upcoming Encounters Date Type Department Care Team (Late st Contact Info) Description 10/13/2024 9:00 AM EDT Medication Management [facility] MEDICINE [address] [place] [address] Jenn Bryan, PharmD [address] [place] [address] 10/15/2024 3:30 PM EDT Office Visit [facility] MEDICINE [address] [place] [address] Rayne Medley NP [address] [place] [address] Scheduled Orders Name Type Priority Associated Diagnoses Orde r Schedule PSA, Screen Lab Routine Urge incontinence of urine Expected: 09/13/2024 (Approximate), Expires: 09/13/2025 Scheduled Referrals Name Type Priority Associated Diagnoses Orde r Schedule Referral to Hematology / Oncology Outpatient Referral Urgent Type 2 diabetes mellitus with diabetic neuropathy, unspecified whether petroleum terminal plant operator insulin use ([facility]) Thrombocytosis Expected: 09/13/2024 (Approximate), Expires: 09/13/2025 Referral to Urology Outpatient Referral Routine Urge incontinence of urine Expected: 09/13/2024 (Approximate), Expires: 09/13/2025 documented as of this encounter Procedures Procedure Name Priority Date/Time Associated Diagnosis Comments POCT GLUCOSE Routine 09/13/2024 1:59 PM EDT Type 2 diabetes mellitus with diabetic neuropathy, unspecified whether prison insulin use ([facility]) documented in this encounter Results * POCT Glucose (09/13/2024 1:59 PM EDT) [facility] Glucose Blood, POC 163 60 - 200 mg/dL QC Media Lot # [id number] Lot# Expiration Date Blood Capillary blood specimen / Unknown 09/13/2024 1:59 PM EDT Rayne Medley NP POINT OF CARE TEST ENTER/EDIT OR DERABLES Final Result documented in this encounter Visit Diagnoses Diagnosis Neuropathic pain of both feet- Primary Type 2 diabetes mellitus with diabetic neuropathy, unspecified whether prison insulin use ([facility]) Thrombocytosis Essential thrombocythemia Dietary counseling Dietary surveillance and counseling Exercise counseling Urge incontinence of urine Urge incontinence Hyperglycemia Other abnormal glucose documented in this encounter Additional Health Concerns Assessment Noted Time PHQ-9 Depression Total Score: 4 07/05/19 25 2:47 PM EST documented as of this encounter Care Teams Youth Coordinator Relationship Specialty Start Date End Date Rayne Medley NP [address] [place] [address] PCP - General Family Medicine 07/09/24 Jenn Bryan PharmD [address] [place] [address] Pharmacist Internal Medicine 04/29/24 documented as of this encounter
--- OUTSIDE RECORDS SUMMARY | 2024-09-13 18:11 | XMS_ITS | Encounter Summary ---
Author Organization [employer] Address [address] [facility] 7t [place] [address] Care Team Providers Care Shop Coordinator Name Role Phone Jenn Bryan PharmD Unavailable [phone] Rayne Medley COMPUTER ANALYST SUPERVISOR Primary Care Provider [phone] Reason for Visit * Reason Comments Care Coordination C3/CHW Cameron ny, Chart review Encounter Details Date Type Department Care Team (Latest Contact Info) Description 09/09/2024 Patient Outreach [facility] MEDICINE [address] [place] [address] Rayne Medley, COMPUTER ANALYST SUPERVISOR [address] [place] [address] Care Coordination (C3CM/AMAN Sarkar, Chart review ) Social History Tobacco Use Types Packs/Day [...] Progress Notes * Cameron Sarkar - 09/09/2024 2:06 PM EDT CHW Cameron Sarkar, performed chart review, in anticipation of initial outreach for services and coordination of care. Patient's last PCP appointment: 08/31/24. Patient's next appointment: 09/13/24. ED Visits in the last 12 months: 1. Hospitalizations in the last 12 months: 1. documented in this encounter Plan of Treatment Upcoming Encounters Date Type Department Care Team (Late st Contact Info) Description 10/13/2024 9:00 AM EDT Medication Management [facility] MEDICINE [address] [place] [address] Jenn Bryan, PharmD [address] [place] [address] 10/15/2024 3:30 PM EDT Office Visit [facility] MEDICINE [address] [place] [address] Rayne Medley NP [address] [place] [address] documented as of this encounter Visit Diagnoses Not on filedocumented in this encounter Additional Health Concerns Assessment Noted Time PHQ-9 Depression Total Score: 4 07/05/19 25 2:47 PM EST documented as of this encounter Care Teams Shop Coordinator Relationship Specialty Start Date End Date Rayne Medley NP [address] [place] [address] PCP - General Family Medicine 07/09/24 Jenn Bryan PharmD [address] [place] [address] Pharmacist Internal Medicine 04/29/24 documented as of this encounter
--- OUTSIDE RECORDS SUMMARY | 2024-09-13 18:11 | XMS_ITS | Encounter Summary ---
Author Organization [employer] Address 75 [facility] 7t [place] [address] Care Team Providers Care Systems Software Designer Name Role Phone Jenn Bryan PharmD Unavailable [phone] Rayne Medley NP Primary Care Provider [phone] Encounter Details Date Type Department Care Team ([facility] st Contact Info) Description 09/13/2024 Patient Outreach [facility] MEDICINE [address] [place] [address] Rayne Medley, MYRON [address] [place] [address] Social History Tobacco Use Types Packs/Day Years [...] Description 10/13/2024 9:00 AM EDT Medication Management [facility] MEDICINE [address] [place] [address] Jenn Bryan PharmD [address] [place] [address] 10/15/2024 3:30 PM EDT Office Visit [facility] MEDICINE [address] [place] [address] Rayne Medley NP [address] [place] [address] documented as of this encounter Visit Diagnoses Not on filedocumented in this encounter Additional Health Concerns Assessment Noted Time PHQ-9 Depression Total Score: 4 07/05/19 2:47 PM EST documented as of this encounter Care Teams Systems Software Designer Relationship Specialty Start Date End Date Rayne Medley NP [address] [place] [address] PCP - General Family Medicine 07/09/24 Jenn Bryan PharmD [address] [place] [address] Pharmacist Internal Medicine 04/29/24 documented as of this encounter
--- OUTSIDE RECORDS SUMMARY | 2024-09-13 18:11 | XMS_ITS | Encounter Summary ---
Author Organization [employer] Address 75 [facility] 7t [place] [address] Care Team Providers Care Billing Assistant Name Role Phone Jenn Bryan PharmD Unavailable [phone] Rayne Medley NP Primary Care Provider [phone] Encounter Details Date Type Department Care Team (Latest Contact Info) Description 09/13/2024 Travel Social History Tobacco Use Types Packs/Day [...] Description 10/13/2024 9:00 AM EDT Medication Management [facility] MEDICINE [address] [place] [address] Jenn Bryan PharmD [address] [place] [address] 10/15/2024 3:30 PM EDT Office Visit [facility] MEDICINE [address] [place] [address] Rayne Medley NP [address] [place] [address] documented as of this encounter Visit Diagnoses Not on filedocumented in this encounter Additional Health Concerns Assessment Noted Time PHQ-9 Depression Total Score: 4 07/05/19 25 2:47 PM EST documented as of this encounter Care Teams Billing Assistant Relationship Specialty Start Date End Date Ranye Medley NP [address] [place] [address] PCP - General Family Medicine 07/09/24 Jenn Bryan PharmD [address] [place] [address] [phone] Pharmacist Internal Medicine 04/29/24 documented as of this encounter
--- OUTSIDE RECORDS SUMMARY | 2024-09-13 18:11 | XMS_ITS | Encounter Summary ---
Author Organization [employer] Address [address] [facility] 7t [place] [address] Care Team Providers Care Instrument Engineer Name Role Phone Jenn Bryan PharmD Unavailable [phone] Rayen Medley NP Primary Care Provider [phone] Reason for Visit * Reason Comments Care Coordination C3/AMAN RODRIGUEZ transportation Encounter Details Date Type Department Care Team (Latest Contact Info) Description 09/13/2024 Patient Outreach [facility] MEDICINE [address] [place] [address] Rayne Medley, POWERBUILDER [address] [place] [address] Care Coordination (ROCK/AMAN RODRIGUEZ transportation ) Social History Tobacco Use Types Packs/Day [...] encounter Progress Notes * Cameron Sarkar - 09/13/2024 2:05 PM EDT CHW called patient to share the transportation details for today's appt. CHW booked transportation through [employer]. CHW met with patient and patient dropped off required documentation for [employer] fuel assistance application. documented in this encounter Plan of Treatment Upcoming Encounters Date Type Department Care Team (Late st Contact Info) Description 10/13/2024 9:00 AM EDT Medication Management [facility] MEDICINE [address] [place] [address] Jenn Bryan, PharmD [address] [place] [address] 10/15/2024 3:30 PM EDT Office Visit [facility] MEDICINE [address] [place] [address] Rayne Medley NP [address] [place] [address] documented as of this encounter Visit Diagnoses Not on filedocumented in this encounter Additional Health Concerns Assessment Noted Time PHQ-9 Depression Total Score: 4 07/05/19 25 2:47 PM EST documented as of this encounter Care Teams Instrument Engineer Relationship Specialty Start Date End Date Rayne Medley NP [address] [place] [address] PCP - General Family Medicine 07/09/24 Jenn Bryan PharmD [address] [place] [address] Pharmacist Internal Medicine 04/29/24 documented as of this encounter
[2024-09-13 18:16] LABS: Prostate Specific Antigen Scr 1.47 ng/mL (<0.05-4.0)
== END 2024-09-13 15:22 | disposition home or self-care (01) ==
LOC: HO.HHCL 15:21
PROVIDERS: Nurse Practitioner Family; Visit Provider Nurse Practitioner Family
DX: E11.9 Type 2 diabetes mellitus without complications (principal); N39.41 Urge incontinence
CPT/HCPCS: 36415; 82565; 84153

== ENCOUNTER 2024-09-16 13:29 | Outpatient (REF) | payer MEDICAID, SELFPAY ==
--- OUTSIDE RECORDS SUMMARY | 2024-09-16 16:15 | XMS_ITS | Encounter Summary ---
Author Organization [employer] Address [address] [facility] 7t [place] [address] Care Team Providers Care Albacore Fishing Boat Crewman Name Role Phone Jenn Bryan PharmD Unavailable [phone] Rayne Medley RUG TOUCH UP PAINTER Primary Care Provider [phone] Reason for Visit * Reason Comments Care Coordination C3/AMAN RODRIGUEZ transportation Encounter Details Date Type Department Care Team (Latest Contact Info) Description 09/13/2024 Patient Outreach [facility] [address] [place] [address] Rayne Medley, RUG TOUCH UP PAINTER [address] [place] [address] Care Coordination (ROCK/AMAN RODRIGUEZ transportation ) Social [...] for today's appt. CHW booked transportation through [employer]. CHW met with patient and patient dropped off required documentation for [employer] fuel assistance application. documented in this encounter Plan of Treatment Upcoming Encounters Date Type Department Care Team (Late st Contact Info) Description 09/29/2024 2:30 PM EDT Medication Management [facility] [address] [place] [phone] 10/13/2024 9:00 AM EDT Medication Management [facility] [address] [place] [phone] Jenn Bryan, GalloD [address] [place] [phone] 10/15/2024 3:30 PM EDT Office Visit [facility] [address] [place] [address] Rayne Medley, MYRON [address] [place] [address] documented as of this encounter Visit Diagnoses Not on filedocumented in this encounter Additional Health Concerns Assessment Noted Time PHQ-9 Depression Total Score: 4 07/05/19 25 2:47 PM EST documented as of this encounter Care Teams Alb[employer]ore Fishing Boat Crewman Relationship Specialty Start Date End Date Rayne Medley NP [address] [place] [address] PCP - General Family Medicine 07/09/24 Jenn Bryan PharmD [address] [place] [address] Pharmacist Internal Medicine 04/29/24 documented as of this encounter
--- OUTSIDE RECORDS SUMMARY | 2024-09-16 16:15 | XMS_ITS | Encounter Summary ---
Author Organization [employer] Address [address] [facility] 7t [place] [address] Care Team Providers Care Advertising Photographer Name Role Phone Jenn Bryan PharmD Unavailable [phone] Rayne Medley NP Primary Care Provider [phone] Encounter Details Date Type Department Care Team [...] Description 09/29/2024 2:30 PM EDT Medication Management [facility] [address] [place] [phone] 10/13/2024 9:00 AM EDT Medication Management [address] [address] Jenn Bryan PharmD [address] [place] [phone] 10/15/2024 3:30 PM EDT Office Visit [facility] [address] [place] [address] Rayne Medley NP [address] [place] [phone] documented as of this encounter Visit Diagnoses Not on filedocumented in this encounter Additional Health Concerns Assessment Noted Time PHQ-9 Depression Total Score: 4 07/05/19 2:47 PM EST documented as of this encounter Care Teams Advertising Photographer Relationship Specialty Start Date End Date Rayne Medley NP [address] [place] [address] PCP - General Family Medicine 07/09/24 Jenn Bryan PharmD [address] [place] [phone] Pharmacist Internal Medicine 04/29/24 documented as of this encounter
--- OUTSIDE RECORDS SUMMARY | 2024-09-16 16:15 | XMS_ITS | Encounter Summary ---
Author Organization [employer] Address [address] [facility] [address] 7[address] [place] [address] Care Team Providers Care Retail Customer Service Representative Name Role Phone Jenn Bryan PharmD Unavailable [phone] Rayne Medley NP Primary Care Provider [phone] Encounter Details Date Type Department Care Team ([facility] st Contact Info) Description 09/14/2024 Telephone [facility] [address] [place] [address] Rayne Medley, MYRON [address] [place] [address] Social History Tobacco Use Types Packs/Day Years [...] encounter Miscellaneous Notes * Telephone Encounter - Marilu Barclay - 09/14/2024 3:13 PM EDT Erroneous encounter documented in this encounter Plan of Treatment Upcoming Encounters Date Type Department Care Team (Late st Contact Info) Description 09/29/2024 2:30 PM EDT Medication Management [facility] [address] [place] [phone] 10/13/2024 9:00 AM EDT Medication Management [address] [address] Jenn Bryan, PharmD [address] [place] [phone] 10/15/2024 3:30 PM EDT Office Visit [facility] [address] [place] [address] Rayne Medley NP [address] [place] [address] documented as of this encounter Visit Diagnoses Not on filedocumented in this encounter Additional Health Concerns Assessment Noted Time PHQ-9 Depression Total Score: 4 07/05/19 25 2:47 PM EST documented as of this encounter Care Teams Retail Customer Service Representative Relationship Specialty Start Date End Date Rayne Medley NP [address] [place] [address] PCP - General Family Medicine 07/09/24 Jenn Bryan PharmD [address] [place] [address] Pharmacist Internal Medicine 04/29/24 documented as of this encounter
--- OUTSIDE RECORDS SUMMARY | 2024-09-16 16:15 | XMS_ITS | Encounter Summary ---
Author Organization [employer] Address [address] [facility] 7t [place] [address] Care Team Providers Care Plane Runner Name Role Phone Jenn Bryan PharmD Unavailable [phone] Rayne Medley NP Primary Care Provider Reason for Visit * Reason Onset Date Comments Durable Medical Equipment 09/14/2024 Encounter Details Date Type Department Care Team ([facility] st Contact Info) Description 09/14/2024 Telephone [facility] [address] [place] [address] Rayne Medley, MYRON [address] [place] [address] Durable Medical Equipment Social History Tobacco Use Types Packs/Day Years [...] encounter Miscellaneous Notes * Telephone Encounter - Briseida Marroquin - 09/14/2024 4:01 PM EDT DME RX for Walker w/seat generated and placed on providers desk for signature. * Telephone Encounter - Briseida Marroquin - 09/14/2024 4:01 PM EDT ----- Message from Rayne Medley sent at 09/13/2024 2:42 PM EDT ----- Pt with debilitating diabetic neuropathy, and requires walker with seat documented in this encounter Plan of Treatment Upcoming Encounters Date Type Department Care Team (Late st Contact Info) Description 09/29/2024 2:30 PM EDT Medication Management [facility] [address] [place] [address] 10/13/2024 9:00 AM EDT Medication Management [facility] [address] [place] [address] Jenn Bryan, PharmD [address] [place] [address] 10/15/2024 3:30 PM EDT Office Visit [facility] [address] [place], [place] [phone] Rayne Medley NP [address] [place] [address] documented as of this encounter Visit Diagnoses Not on filedocumented in this encounter Additional Health Concerns Assessment Noted Time PHQ-9 Depression Total Score: 4 07/05/19 25 2:47 PM EST documented as of this encounter Care Teams Plane Runner Relationship Specialty Start Date End Date Rayne Medley NP [address] [place], [place] [phone] PCP - General Family Medicine 07/09/24 Jenn Bryan PharmD [address] [place] [address] Pharmacist Internal Medicine 04/29/24 documented as of this encounter
--- OUTSIDE RECORDS SUMMARY | 2024-09-16 16:15 | XMS_ITS | Encounter Summary ---
Author Organization [employer] Address [address] [facility] 7t [place] [address] Care Team Providers Care Battery Inspector Name Role Phone Jenn Bryan PharmD Unavailable [phone] Rayne Medley NP Primary Care Provider [phone] Reason for Referral * Consultation (Routine) - Pending Review Specialty Diagnoses / Procedures Referred By Fabian watson Referred To Contact Urology Diagnoses Urge incontinence of urine Rayne Medley NP [address] [place] [address] Phone: tel: fax: Referral ID Status Reason Start Date Expiration Date Visits Requested Visits Authorized [id number] Pending Review Specialty Services Required 09/13/2024 09/13/2025 1 1 * Consultation (Urgent) - Pending Review Specialty Diagnoses / Procedures Referred By Fabian watson Referred To Contact Hematology and Oncology Diagnoses Type 2 diabetes mellitus with diabetic neuropathy, unspecified whether superintendent container terminal insulin use ([facility]) Thrombocytosis Rayne Medley NP [address] [place] [address] Phone: tel: fax: Referral ID Status Reason Start Date Expiration Date Visits Requested Visits Authorized [id number] Pending Review Specialty Services Required 09/13/2024 09/13/2025 1 1 Encounter Details Date Type Department Care Team (Late st Contact Info) Description 09/13/2024 1:45 PM EDT Office Visit [facility] [address] [place] [address] Rayne Medley, MYRON [address] [place] [address] Neuropathic pain of both feet (Primary Dx); Type 2 diabetes mellitus with diabetic neuropathy, unspecified whether superintendent container terminal insulin use ([facility]); Thrombocytosis; Dietary counseling; Exercise counseling; Urge incontinence [...] t he electric, gas, oil or water [employer] threatened to shut off services in your [...] Description 09/29/2024 2:30 PM EDT Medication Management [address] [address] 10/13/2024 9:00 AM EDT Medication Management [address] [address] PuiaJenn, PharmD [address] [place] [address] 10/15/2024 3:30 PM EDT Office Visit [address] [address] Rayne Medley NP [address] [place] [address] Scheduled Referrals Name Type Priority Associated Diagnoses Orde r Schedule Referral to Hematology / Oncology Outpatient Referral Urgent Type 2 diabetes mellitus with diabetic neuropathy, unspecified whether superintendent container terminal insulin use ([facility]) Thrombocytosis Expected: 09/13/2024 (Approximate), Expires: 09/13/2025 Referral to Urology Outpatient Referral Routine Urge incontinence of urine Expected: 09/13/2024 (Approximate), Expires: 09/13/2025 documented as of this encounter Procedures Procedure Name Priority Date/Time Associated Diagnosis Comments PSA, SCREEN Routine 09/13/2024 3:23 PM EDT Urge incontinence of urine POCT GLUCOSE Routine 09/13/2024 1:59 PM EDT Type 2 diabetes mellitus with diabetic neuropathy, unspecified whether superintendent container terminal insulin use ([facility]) documented in this encounter Results * PSA, Screen (09/13/2024 3:23 PM EDT) PSA, Total 1.47 <0.05 - 4.0 ng/mL [facility] Comment:PSA methodology: Abb kalli Bhatti i ChemiluminescentMicroparticle Immunoassay (CMIA) Blood Venous blood specimen / Unknown 09/13/2024 3:23 PM EDT 09/13/2024 4:07 PM EDT us Rayne Medley DIRECTOR FURNITURE LAB BLOOD ORDERABLES Final Resul t [facility] [address] [place] [address] [phone] * POCT Glucose (09/13/2024 1:59 PM EDT) Glucose Blood, POC 163 60 - 200 mg/dL QC Media Lot # [id number] Lot# Expiration Date Blood Capillary blood specimen / Unknown 09/13/2024 1:59 PM EDT Rayne Medley DIRECTOR FURNITURE POINT OF CARE TEST ENTER/EDIT OR DERABLES Final Result documented in this encounter Visit Diagnoses Diagnosis Neuropathic pain of both feet- Primary Type 2 diabetes mellitus with diabetic neuropathy, unspecified whether mcc insulin use ([facility]) Thrombocytosis Essential thrombocythemia Dietary counseling Dietary surveillance and counseling Exercise counseling Urge incontinence of urine Urge incontinence Hyperglycemia Other abnormal glucose documented in this encounter Additional Health Concerns Assessment Noted Time PHQ-9 Depression Total Score: 4 07/05/19 25 2:47 PM EST documented as of this encounter Care Teams Battery Inspector Relationship Specialty Start Date End Date Rayne Medley NP [address] [place] [address] PCP - General Family Medicine 07/09/24 Jenn Bryan PharmD [address] [place] [address] Pharmacist Internal Medicine 04/29/24 documented as of this encounter
--- OUTSIDE RECORDS SUMMARY | 2024-09-16 16:15 | XMS_ITS | Clinical Summary ---
Author Organization [employer] Address [address] [facility] 7[address] [place] [address] Care Team Providers Care Technical Service Engineer Name Role Phone Jenn Bryan PharmD Unavailable [phone] Rayne Medley NP Primary Care Provider [phone] Allergies Active Allergy Reactions Criticality Noted Date [...] coma, without long-term current use of insulin ([facility]) TAKE 4 TABLETS BY MOUTH TWICE DAILY IN THE MORNING AND THE EVENING 720 tablet 3 Active FREESTYLE LITE test stripIndications:D iabetes mellitus without complication ([facility]) TEST BLOOD SUGAR THREE TIMES DAILY 100 strip 11 024 Active anagrelide (Agrylin) 1 MG capsule TAKE 1 CAPSULE BY MOUTH THREE TIMES DAILY IN THE MORNING, EVENING, AND BEDTIME Active Blood Glucose Monitoring Suppl (FreeStyle Gypsy Lite) w/Device kit Use to test blood sugar 3 times daily 1 kit Active Blood Pressure kitIndications:Typ e 2 diabetes mellitus with diabetic neuropathy, with long-term current use of insulin ([facility]),Benign essential hypertension Use to check BP once daily as directed 1 kit Active Continuous Glucose Acute Dialysis Registered Nurse (FreeStyle Jovanni 2 Tyaskin) deviceIndications: Type 2 diabetes mellitus with diabetic neuropathy, with long-term current use of insulin ([facility]) Use to scan sensor at least every 8 hours, as directed, for CGM 1 each Active Continuous Glucose Sensor (FreeStyle Jovanni 2 Sensor) miscIndications:Ty pe 2 diabetes mellitus with diabetic neuropathy, with long-term current use of insulin ([facility]) Apply 1 sensor, as directed, every 14 days for CGM 2 each Active glucose blood (FreeStyle Precision Tyrone Test) test stripIndications:T ype 2 diabetes mellitus with diabetic neuropathy, with long-term current use of insulin ([facility]) Use to test blood sugar up to 4 times daily, as directed 100 each Active TRUEplus Lancets 33G miscIndications:Ty pe 2 diabetes mellitus with diabetic neuropathy, with long-term current use of insulin ([facility]) TEST BLOOD SUGAR FOUR TIMES DAILY 100 [...] diabetes mellitus with diabetic neuropathy, unspecified whether terminal superintendent insulin use ([facility]) USE DIRECTED THREE TIMES DAILY 200 each 3 Active BD Pen Needle Ruth U/F 32G X 4 MM miscIndications:Di abetes mellitus without complication ([facility]) USE DIRECTED FOUR TIMES DAILY TO INJECT [...] neuropathy, with long-term current use of insulin ([facility]) Inject 20 units subQ up to three times daily with meals. 15 mL 1 025 Active cromolyn (Opticrom) 4 % ophthalmic solution INSTILL 1 DROP INTO THE AFFECTED EYE(S) FOUR TIMES DAILY 022 2024 Discontinued(M ed list cleanup (will not trigger notification to Pharmacy)) insulin lispro (HumaLOG) 100 UNIT/ML injectionIndicatio ns:Type 2 diabetes mellitus with diabetic neuropathy, with long-term current use of insulin ([facility]) Inject 10 units subQ up to three [...] neuropathy, with long-term current use of insulin ([facility]) Inject 2.5 mg under the skin 1 (one) time per week. 2 mL 024 2024 Discontinued(A lternate therapy) Pentips Generic Pen Front Royal 32G X 4 MM miscIndications:Di abetes mellitus without complication ([facility]) DIRECTED FOUR TIMES DAILY TO INJECT lantus AND humalog 100 each 025 2024 Discontinued sertraline (Zoloft) 50 MG tablet TAKE 1 TABLET BY MOUTH EVERY MORNING 30 tablet 1 025 2024 Discontinued(P atient refused) gabapentin (Neurontin) 100 MG capsuleIndications :Foot pain, bilateral,Type 2 diabetes mellitus with diabetic neuropathy, unspecified whether terminal superintendent insulin use ([facility]),Elevated hemoglobin A1c Take 1 capsule (100 mg) [...] at least twice daily Referral placed to [facility] to start patient on CGM Referral to [...] Encounters Date Type Department Care Team Description 09/16/[address] [address] Rayne Medley NP 09/14/[address] [address] Rayne Medley NP Durable Medical Equipment 09/14/[address] [address] Rayne Medley NP Durable Medical Equipment (Bed pads, pullups) 09/14/[address] [address] Rayne Medley NP 09/13/2024 1:45 PM EDT Office Visit [address] [address] Rayne Medley NP Neuropathic pain of both feet (Primary Dx); Type 2 diabetes mellitus with diabetic neuropathy, unspecified whether halfway insulin use ([facility]); Thrombocytosis; Dietary counseling; Exercise counseling; Urge incontinence of urine; Hyperglycemia 09/13/2024 Patient Outreach [facility] [address] [place] [address] Rayne Medley NP Care Coordination ([facility]/Aquilino Sarkar TC transportation ) 09/13/2024 Travel 09/13/2024 Patient Outreach [address] [address] Rayne Medley NP 09/09/2024 Patient Outreach [address] [address] Rayne Medley NP Care Coordination ([facility]/JENNIFER Braun [facility] initial assessment_enrolled ) 09/09/2024 Patient Outreach [address] [address] Rayne Medley NP Care Coordination ([facility]/AMAN Sarkar, Chart review ) 09/09/2024 Patient Outreach [address] [address] Rayne Medley NP 09/09/[address] [address] Jenn Bryan, GalloD Prior Authorization (Ozempic) 09/08/2024 Travel 09/06/[address] [address] Rayne Medley NP 08/31/2024 3:40 PM EDT Office Visit [facility] [address] [place] [address] Bonita Perez MD Thrombocytosis (Primary Dx); Neuropathic pain of both feet 08/31/2024 Telephone [facility] [address] [place] [address] Tanya Gonzalez OD 08/20/2024 Population Health Risk Score [facility] () [address] [address] Provider, Population Health Generic 08/20/2024 Refill [facility] [address] [place] [address] Jayna Strickland NP Diabetes mellitus without complication ([facility]) 08/03/2024 Telephone [facility] [address] [place] [address] Rayne Medley NP No Show 08/03/2024 Refill [facility] [address] [place] [address] Marty Friedman MD Type 2 diabetes mellitus with diabetic neuropathy, unspecified whether halfway insulin use ([facility]) 08/02/2024 Refill [facility] [address] [place] [address] Marty Friedman MD 07/27/2024 Telephone [facility] [address] [place] [address] Linda Girard MA Chart Prep 07/06/2024 Telephone [facility] [address] [place] [address] Suzy Roque RN 07/05/2024 2:30 PM EST Office Visit [facility] [address] [place] [address] Rayne Medley NP Foot pain, bilateral (Primary Dx); Type 2 diabetes mellitus with diabetic neuropathy, unspecified whether terminal superintendent insulin use ([facility]); Elevated hemoglobin A1c; Thrombocytosis 07/05/2024 Telephone [facility] [address] [place] [address] Tristin Barnes MD 07/05/2024 Travel 07/01/2024 Telephone [facility] [address] [place] [address] Marty Friedman MD Nurse Triage 06/27/2024 Refill [facility] [address] [place] [address] Marty Friedman MD 06/23/2024 Patient Outreach [facility] [address] [place] [address] Marty Friedman MD Pre-visit Planning (Not in service) 06/22/2024 Refill [facility] [address] [place] [address] Name, MD Marty Diabetes mellitus without complication ([facility]) from Last 3 Months Immunizations Name Administration [...] housing situation today? I have bobnarciso mabry 07/05/[address] you [...] Description 09/29/2024 2:30 PM EDT Medication Management [facility] [address] [place] [address] 10/13/2024 9:00 AM EDT Medication Management [facility] [address] [place] [address] LalithaiaJenn, PharmD [address] [place] [address] 10/15/2024 3:30 PM EDT Office Visit [facility] [address] [place] [address] Rayne Medley, MYRON [address] [place] [address] Health Maintenance Due Date Last Done Comments [...] history exists Depression Screening 07/05/2025 07/05/2024, 07/05/19 25 SDOH Screening 09/09/2025 09/09/2024 Tobacco Screening 09/13/2025 [...] SERUM Routine 09/13/2024 3:2 3 PM EDT PSA, SCREEN Routine 09/13/2024 3:23 PM EDT Urge incontinence of urine POCT GLUCOSE Routine 09/13/2024 1:59 PM EDT Type 2 diabetes mellitus with diabetic neuropathy, unspecified whether halfway insulin use ([facility]) CBC WITH AUTO DIFFERENTIAL Routine 07/05/2024 4:23 [...] Recently Relevant to Health Maintenance Results * PSA, Screen (09/13/2024 3:23 PM EDT) Pathologist [facility] PSA, Total 1.47 <0.05 - 4.0 ng/mL [facility] Comment:PSA methodology: Guzman Bhatti i ChemiluminescentMicroparticle Immunoassay (CMIA) Blood Venous blood specimen / Unknown 09/13/2024 3:23 PM EDT 09/13/2024 4:07 PM EDT us Rayne Medley NP LAB BLOOD ORDERABLES Final Resul t [facility] [address] [place] [address] [phone] * Creatinine, Serum (09/13/2024 3:23 PM EDT) Pathologist [facility] Creatinine, Serum 0.78 0.5 - 1.4 mg/dL [facility] Estimated Glomerular Filt Rate >60 [facility] Comment:Chronic Kidney Disea se: Estimated GFR < 60 mL/min/1.79e6Myuqdp Kidney Disease: Estimated GFR < 15 mL/min/1.73m2 09/13/2024 3:23 PM EDT 09/13/2024 4:07 PM EDT us Emily Padilla [employer] LAB BLOOD ORDERABLES Final Resu lt [facility] [address] [place] [address] [phone] * POCT Glucose (09/13/2024 1:59 PM EDT) Pathologist [facility] Glucose Blood, POC 163 60 - 200 mg/dL QC Media Lot # [id number] Lot# Expiration Date Blood Capillary blood specimen / Unknown 09/13/2024 1:59 PM EDT Rayne Medley DRUG ABUSE COUNSELOR POINT OF CARE TEST ENTER/EDIT OR DERABLES Final Result * (ABNORMAL) CBC auto differential (07/05/2024 4:23 PM EST) Pathologist [facility] White Blood Count 12.3(H) 4.8 - 10.8 X10*3/uL [facility] Red Blood Count 5.67 4.60 - 5.80 X10*6/uL [facility] Hemoglobin 14.5 14.0 - 18.0 g/dl [facility] Hematocrit 45.2 42.0 - 52.0 % [facility] Mean Corpuscular Volume 79.7(L) 80.0 - 98.0 fL [facility] Mean Corpuscular Hemoglobin 25.6(L) 27.0 - 33.0 pg [facility] Mean Corpuscular HGB Conc 32.1 31.0 - 36.0 g/dl [facility] Red Cell Distribution Width 13.9 11.0 - 16.0 % [facility] Platelet Count 1,864(HH) 160 - 400 X10*3/uL [facility] Comment:Results of PLT garcia d to and read back by DR Hodge 07/05/24 at 1849 by WILMER. Mean Platelet Volume 8.7(L) 9.4 - 12.4 fL [facility] Neutrophils Percent Auto 74.6(H) 45 - 73 % [facility] Imm Gran Pct Auto 1.4(H) 0.0 - 0.4 % [facility] Lymphocytes Percent Auto 12.8(L) 20 - 40 % [facility] Monocytes Percent Auto 8.2 2 - 11 % [facility] Eosinophils Percent Auto 2.3 0 - 4 % [facility] Basophils Percent Auto 0.7 0 - 2 % [facility] NRBC Pct Auto 0.0 0.0 - 0.2 /100WBC [facility] Neutrophils Absolute Auto 9.2(H) 2.0 - 8.3 x10*3/uL [facility] Imm Gran Abs Auto 0.17(H) 0.00 - 0.03 X10*3/uL [facility] Lymphocytes Absolute Auto 1.6 1.2 - 4.9 X10*3/uL [facility] Monocytes Absolute Auto 1.0 0.1 - 1.2 X10*3/uL [facility] Eosinophils Absolute Auto 0.3 0.0 - 0.4 X10*3/uL [facility] Basophils Absolute Auto 0.1 0.0 - 0.2 X10*3/uL [facility] NRBC Abs Auto 0.000 0.0 - 0.012 X10*3/uL [facility] Blood Venous blood specimen / Unknown 07/05/2024 4:23 PM EST 07/05/2024 5:48 PM EST us Rayne Medley NP LAB BLOOD ORDERABLES Final Resul t [facility] [address] [place] [address] [phone] * (ABNORMAL) Hemoglobin A1c (07/05/2024 4:23 PM EST) Hemoglobin A1c 10.6(H) <6.0 % [facility] Comment:Hemoglobin A1C Refer ence Range Adults: 4.8 - 6.0 % Non diabetic: < 6.0 % Goal: < 7.0 %Additional Action Suggested: > 8.0 %Note: Hemoglobin A1c results are invalid for patients with abnormal amounts of HbF. Blood transfusions may impact the HbA1c concentration in the patient sample. Estimated Average Glucose 258 mg/dL [facility] Comment:eAG = Estimated ave rage glucose which is %A1C expressed asaverage glucose, using the formula of the [id number] Glucose study (ADAG), Diabetes Care, Vol.31,#8,Jan. 2007 Blood Venous blood specimen / Unknown 07/05/2024 4:23 PM EST 07/05/2024 5:48 PM EST us Rayne Medley NP LAB BLOOD ORDERABLES Final Resul t [facility] [address] [place] [phone] * (ABNORMAL) Comprehensive Metabolic Panel (07/05/2024 4:23 PM EST) Sodium 139 135 - 145 mmol/L [facility] Potassium 4.1 3.3 - 5.1 mmol/L [facility] Chloride 110(H) 96 - 108 mmol/L [facility] Carbon Dioxide 23 22 - 29 mmol/L [facility] Anion Gap 10(L) 12 - 20 [facility] Urea Nitrogen (BUN) 17(H) 9 - 16 mg/dL [facility] Creatinine, Serum 0.75 0.5 - 1.4 mg/dL [facility] Estimated Glomerular Filt Rate >60 [facility] Comment:Chronic Kidney Disea se: Estimated GFR < 60 mL/min/1.44r0Vdmorp Kidney Disease: Estimated GFR < 15 mL/min/1.73m2 Glucose 121(H) 60 - 115 mg/dL [facility] Calcium 9.5 8.4 - 10.2 mg/dL [facility] Bilirubin, Total 0.5 0.0 - 1.0 mg/dL [facility] Aspartate Amino Transferase 30 5 - 37 U/L [facility] Alanine Aminotransferase 29 0 - 40 U/L [facility] Total Protein 7.5 6.5 - 8.0 g/dL [facility] Albumin Level 4.1 3.5 - 5.0 g/dL [facility] Alkaline Phosphatase 91 39 - 117 U/L [facility] Blood Venous blood specimen / Unknown 07/05/2024 4:23 PM EST 07/05/2024 5:48 PM EST us Rayne Medley NP LAB BLOOD ORDERABLES Final Resul t [facility] [address] [place] [phone] * (ABNORMAL) Lipid Panel, Standard (03/31/2024 3:40 PM EDT) Triglycerides 307(H) <150 mg/dL [facility] Comment:Desirable Triglyceri de: less than 150 mg/dLBorderline High Triglyceride 150-199 mg/dLHigh Triglyceride: 200-499 mg/dLVery High Triglyceride: greater than or equal to 5OO mg/dL Cholesterol 180 <200 mg/dL [facility] Comment:Desirable Cholestero l: less than 200 mg/dLBorderline High Cholesterol: 200-239 mg/dLHigh Cholesterol: greater than 239 mg/dL LDL Cholesterol Calculated 59 <100 mg/dL [facility] Comment:Desirable LDL: less than 100 mg/dLNear Optimal/Above Optimal LDL: 110- 129 mg/dLBorderline High LDL: 130-159 mg/dLHigh LDL: 160-189 mg/dLVery High LDL: greater than or equal to 190 mg/dL HDL Cholesterol 60 >40 mg/dL [facility] Comment:Desirable HDL: great er than 40 mg/dL Note: This HDL assay may give artificially low results in patients with liver disease. Blood Venous blood specimen / Unknown 03/31/2024 3:40 PM EDT 03/31/2024 4:09 PM EDT us Emily Padilla [employer] LAB BLOOD ORDERABLES Final Resu lt Performing Organization Address City/[facility]/ZIP Co de Phone Number [facility] [address] [place] [phone] [phone] * ALBUMIN, RANDOM URINE W/CREATININE (05/07/2021 1:12 PM EST) Microalbumin Urine 2.1 See Note: mg/dL [facility] Comment: Reference Range: ?? Reference [...] Creatinine, Urine 228 20 - 320 mg/dL [facility] 05/07/2021 1:12 PM EST us Salena Ruffin MD LAB URINE ORDERABLES Final R esult Performing Organization Address City/[facility]/ZIP Co de Phone Number [facility] [address] from Last 3 Months or Most Recently Relevant to Health Maintenance Insurance * Guarantor: Lamin Jewell Account Type Relation to Patient Date of Phone Billing Address Personal/Family Self [address] [place] [address] [facility] * Guarantor: Lamin Jewell Account Type Relation to Patient Date of Phone Billing Address Personal/Family Self [address] [place] [address] * Guarantor: Lamin Jewell Account Type Relation to Patient Date of Phone Billing Address Personal/Family Self [address] [place] [address] * Guarantor: Lamin Jewell Account Type Relation to Patient Date of Phone Billing Address Personal/Family Self [address] [place] [address] Care Teams Technical Service Engineer Relationship Specialty Start Date End Date Rayne Medley NP [address] [place] [address] PCP - General Family Medicine 07/09/24 Jenn Bryan PharmD [address] [place] [address] Pharmacist Internal Medicine 04/29/24
--- OUTSIDE RECORDS SUMMARY | 2024-09-16 16:15 | XMS_ITS | Encounter Summary ---
Author Organization [employer] Address [address] [place] [address] Care Team Providers Care Sed Special Education Teacher Name Role Phone Jenn Bryan PharmD Unavailable [phone] Rayne Medley NP Primary Care Provider [phone] Encounter Details Date Type Department Care Team ([facility] st Contact Info) Description 09/16/2024 Telephone [facility] [address] [place] [address] Rayne Medley, MYRON [address] [place] [address] Social History Tobacco Use Types Packs/Day Years [...] encounter Miscellaneous Notes * Telephone Encounter - Isabelle Montoya RN - 09/16/2024 2:14 PM EDT T/C to pt via [employer] Director Ger #[id number] re: provider request to determine FBG readings. Pt's Smiley states that pt's FBG has been 170, 180. Advised of recommendation from PCP to increase Tresiba to 20u daily. Smiley agrees to advise pt and to advise pt to call C with any questions. * Telephone Encounter - Isabelle Montoya RN - 09/16/2024 2:06 PM EDT ----- Message from Rayne Medley sent at 09/13/2024 3:04 PM EDT ----- Pt has only been using humalog 20 units in the am. At todays visit we STOPPED humalog. Start tresiba 15 units nighty for 3 nights starting tonight, please call on 09/16/24. If fasting sugars are >150 increase tresiba to 20 units. Once fasting sugar is at goal , will resume humalog. documented in this encounter Plan of Treatment Upcoming Encounters Date Type Department Care Team (Late st Contact Info) Description 09/29/2024 2:30 PM EDT Medication Management [facility] [place] [address] 10/13/2024 9:00 AM EDT Medication Management [facility] [place] [address] Jenn [place] [address] 10/15/2024 3:30 PM EDT Office Visit [facility] [place] [address] Rayne [place] [address] documented as of this encounter Visit Diagnoses Not on filedocumented in this encounter Additional Health Concerns Assessment Noted Time PHQ-9 Depression Total Score: 4 07/05/19 25 2:47 PM EST documented as of this encounter Care Teams Sed Special Education Teacher Relationship Specialty Start Date End Date Rayne Medley NP [facility] [place] [address] PCP - General Family Medicine 07/09/24 [place] [address] Pharmacist Internal Medicine 04/29/24 documented as of this encounter
--- OUTSIDE RECORDS SUMMARY | 2024-09-16 16:15 | XMS_ITS | Encounter Summary ---
Author Organization [employer] Address [address] [facility] 7[address] [place] [address] Care Team Providers Care Mountain Bike Guide Name Role Phone Jenn Bryan PharmD Unavailable [phone] Rayne Medley NP Primary Care Provider [phone] Reason for Visit * Reason Onset Date Comments Durable Medical Equipment 09/14/2024 Bed pa ds, pullups Encounter Details Date Type Department Care Team ([facility] st Contact Info) Description 09/14/2024 Telephone [facility] [address] [place] [address] Rayne Medley, LIBRARIAN [address] [place] [address] Durable Medical Equipment (Bed pads, pullups) Social History Tobacco Use Types Packs/Day Years [...] Telephone Encounter - Briseida Marroquin - 09/14/2024 3:41 PM EDT DME RX for Diapers/pull ups and Disposable underpads/bedpads generated and placed on pcp desk for signature. Regular bed not covered by insurance. * Telephone Encounter - Briseida Marroquin - 09/14/2024 3:41 PM EDT ----- Message from Rayne Medley sent at 09/13/2024 2:40 PM EDT ----- Please send dme for pullups, and bed pads, is it possible to get a regular bed as well? (Not a hospital bed) pt cannot sleep in partner bed due to urinary incontinence, thank you documented in this encounter Plan of Treatment Upcoming Encounters Date Type Department Care Team (Late st Contact Info) Description 09/29/2024 2:30 PM EDT Medication Management [address] [address] 10/13/2024 9:00 AM EDT Medication Management [facility] [address] [place] [address] Jenn Bryan PharmD [address] [place] [address] 10/15/2024 3:30 PM EDT Office Visit [facility] [address] [place] [address] Rayne Medley NP [address] [place] [phone] documented as of this encounter Visit Diagnoses Not on filedocumented in this encounter Additional Health Concerns Assessment Noted Time PHQ-9 Depression Total Score: 4 07/05/19 25 2:47 PM EST documented as of this encounter Care Teams Mountain Bike Guide Relationship Specialty Start Date End Date Rayne Medley NP [address] [place] [phone] PCP - General Family Medicine 07/09/24 Jenn Bryan PharmD [address] [place] [phone] Pharmacist Internal Medicine 04/29/24 documented as of this encounter
--- OUTSIDE RECORDS SUMMARY | 2024-09-16 16:15 | XMS_ITS | Encounter Summary ---
Author Organization [employer] Address [address] [place] [address] Care Team Providers Care Casting Plug Assembler Name Role Phone Name, Marty HOLDER Primary Care Provider [phone] Jenn Bryan PharmD Unavailable [phone] Rayne Medley NP Primary Care Provider [phone] Encounter Details Date Type Department Care Team (Late st Contact Info) Description 04/02/2024 Orders Only [facility] [address] [place] [address] Linh Thompson, ABDULLAHI Social History Tobacco Use [...] Description 09/29/2024 2:30 PM EDT Medication Management [address] [address] 10/13/2024 9:00 AM EDT Medication Management [address] [address] Jenn Bryan, PharmD 230 [place] [address] 10/15/2024 3:30 PM EDT Office Visit [address] [address] Rayne Medley NP 230 [place] [address] documented as of this encounter Procedures Procedure Name Priority Date/Time Associated Diagnosis Comments CREATININE, SERUM Routine 09/13/2024 3:2 3 PM EDT documented in this encounter Results * Creatinine, Serum (09/13/2024 3:23 PM EDT) Creatinine, Serum 0.78 0.5 - 1.4 mg/dL [facility] Estimated Glomerular Filt Rate >60 [facility] Comment:Chronic Kidney Disea se: Estimated GFR < 60 mL/min/1.39n4Bgicio Kidney Disease: Estimated GFR < 15 mL/min/1.73m2 09/13/2024 3:23 PM EDT 09/13/2024 4:07 PM EDT Emily Carlosana SENIOR ASSOCIATE LAB BLOOD ORDERABLES Final Resu lt [facility] [address] [place] [address] [phone] documented in this encounter Visit Diagnoses Not on filedocumented in this encounter Additional Health Concerns Assessment Noted Time PHQ-9 Depression Total Score: 9 04/11/20 23 3:59 PM EDT documented as of this encounter Care Teams Casting Plug Assembler Relationship Specialty Start Date End Date Name, MD Marty 230 [place] [address] PCP - General Internal Medicine 03/31/24 07/08/24 Rayne Medley NP [address] [place] [address] PCP - General Family Medicine 07/09/24 Jenn Bryan PharmD 230 [place] [address] Pharmacist Internal Medicine 04/29/24 documented as of this encounter
--- OUTSIDE RECORDS SUMMARY | 2024-09-16 16:15 | XMS_ITS | Encounter Summary ---
Author Organization [employer] Address [address] [facility] 7t [place] [address] Care Team Providers Care Manufacturing Engineer Supervisor Name Role Phone Jenn Bryan PharmD Unavailable [phone] Rayne Medley NP Primary Care Provider [phone] Encounter Details Date Type Department Care Team ([facility] st Contact Info) Description 09/13/2024 Patient Outreach [facility] [address] [place] [address] Rayne Medley, MYRON 230 [place] [address] Social History Tobacco Use Types Packs/Day Years [...] Description 09/29/2024 2:30 PM EDT Medication Management [facility] [address] [place] [address] 10/13/2024 9:00 AM EDT Medication Management [address] [address] Jenn Bryan PharmD [address] [place] [address] 10/15/2024 3:30 PM EDT Office Visit [address] [address] Rayne Medley NP [address] [place] [address] documented as of this encounter Visit Diagnoses Not on filedocumented in this encounter Additional Health Concerns Assessment Noted Time PHQ-9 Depression Total Score: 4 07/05/19 2:47 PM EST documented as of this encounter Care Teams Manufacturing Engineer Supervisor Relationship Specialty Start Date End Date Rayne Medley NP [address] [place] [address] PCP - General Family Medicine 07/09/24 Jenn Bryan, PharmD [address] [place] [address] Pharmacist Internal Medicine 04/29/24 documented as of this encounter
--- OUTSIDE RECORDS SUMMARY | 2024-09-16 16:15 | XMS_ITS ---
Author Organization [employer] Address [address] [facility] 7t [place] [address] Care Team Providers Care Superintendent Refuse Disposal Name Role Phone Jenn Bryan PharmD Unavailable [phone] Rayne Medley NP Primary Care Provider [phone] [facility] Status:Enrolled (Active) Start date:09/09/2024 Enrollment date:09/09/2024 Enrollment reason:Referred by provider Overview SDOH Referral- Hi! This patient needs help with his utilities and other SDOH concerns Case Team Name Relationship Phone Cameron Sarkar (Responsible Staff) Continued Care and Services Coordination
[2024-09-16 16:36] LABS: Creatinine Urine 147.39 mg/dL; Microalbum/Creatinine Ratio Ur 15.6 ug/mg cr (<30)
== END 2024-09-16 13:30 | disposition home or self-care (01) ==
LOC: HO.HHCL 13:29
PROVIDERS: Visit Provider Internal Medicine Geriatric Medicine
DX: E11.40 Type 2 diabetes mellitus with diabetic neuropathy, unspecified (principal)
CPT/HCPCS: 82043; 82570

== ENCOUNTER 2024-11-02 14:33 | Outpatient (REF) | payer MEDICAID, SELFPAY ==
[2024-11-02 15:57] LABS: MANUAL DIFF FLAG NO
[2024-11-02 16:07] LABS: Basophils Absolute Auto 0.1 X10*3/uL (0.0-0.2); Basophils Percent Auto 0.6 % (0-2); Eosinophils Absolute Auto 0.3 X10*3/uL (0.0-0.4); Eosinophils Percent Auto 2.1 % (0-4); Hematocrit 40.1 % (42.0-52.0); Imm Gran Abs Auto 0.18 X10*3/uL (0.00-0.03); Imm Gran Pct Auto 1.5 % (0.0-0.4); Lymphocytes Absolute Auto 2.1 X10*3/uL (1.2-4.9); Lymphocytes Percent Auto 16.9 % (20-40); Mean Corpuscular HGB Conc 32.4 g/dl (31.0-36.0); Mean Corpuscular Hemoglobin 24.7 pg (27.0-33.0); Mean Corpuscular Volume 76.2 fL (80.0-98.0); Mean Platelet Volume 9.2 fL (9.4-12.4); Neutrophils Absolute Auto 8.6 x10*3/uL (2.0-8.3); Neutrophils Percent Auto 70.9 % (45-73); Red Blood Count 5.26 X10*6/uL (4.60-5.80); Red Cell Distribution Width 15.8 % (11.0-16.0); White Blood Count 12.1 X10*3/uL (4.8-10.8)
[2024-11-02 16:22] LABS: Alanine Aminotransferase 30 U/L (0-40); Albumin Level 4.2 g/dL (3.5-5.0); Alkaline Phosphatase 85 U/L (39-117); Anion Gap 13 (12-20); Aspartate Amino Transferase 32 U/L (5-37); Bilirubin Total 0.6 mg/dL (0.0-1.0); Blood Urea Nitrogen 14 mg/dL (9-16); Calcium 9.4 mg/dL (8.4-10.2); Carbon Dioxide 22 mmol/L (22-29); Chloride 109 mmol/L (96-108); Cholesterol 171 mg/dL (<200); Estimated Glomerular Filt Rate > 60; Glucose Random 145 mg/dL (60-115); HDL Cholesterol 55 mg/dL (>40); LDL Cholesterol Calculated 103 mg/dL (<100); Sodium 140 mmol/L (135-145); Triglycerides 68 mg/dL (<150)
[2024-11-02 16:30] LABS: Platelet Count 1076 X10*3/uL (160-400)
[2024-11-03 08:59] LABS: HIV AB/AG Nonreactive (Nonreactive); HIV Num 1 0.07 S/CO (0.00-0.99); ~HepC Num1 0.13 S/CO (0.00-0.79); ~Hepatitis C Antibody Nonreactive (Nonreactive)
== END 2024-11-02 14:34 | disposition home or self-care (01) ==
LOC: HO.HHCL 14:33
PROVIDERS: Visit Provider Nurse Practitioner Family
DX: Z00.00 Encounter for general adult medical examination without abnormal findings (principal)
CPT/HCPCS: 36415; 80053; 80061; 85025; 86803; 87389

== ENCOUNTER 2024-11-30 13:12 | Outpatient (REF) | payer MEDICAID, SELFPAY ==
--- NOTE | ~2024-11-30 | US_ITS ---
CLINICAL HISTORY: throbocytosis, poorly controlled type II DM. numbness in feet, Arterial duplex ultrasound right lower extremity Comparison: None provided Findings: Continuous, pulsatile flow with multiphasic waveforms from common femoral arteries through the posterior tibial and dorsalis pedis arteries. There is elevated velocity within the right popliteal artery, peak systolic velocity 330 cm/sec, which may suggest the presence of a stenosis in the distal right femoral artery versus proximal right popliteal artery. Some aliasing is seen also suggesting turbulent flow. IMPRESSION: Multiphasic waveforms throughout the right lower extremity. Abrupt increased velocity in the popliteal artery suggests the presence of a stenosis in the distal SFA or proximal popliteal artery. No significant calcified atheromatous plaquing is appreciated. This document has been electronically signed by: Cynthia Banegas MD on 12/01/2024 10:33:44
--- OUTSIDE RECORDS SUMMARY | 2024-11-30 15:06 | XMS_ITS | Encounter Summary ---
Author Organization [employer] Address [address] [place] [address] Care Team Providers Care Correspondence School Teacher Name Role Phone Name, Marty HOLDER Primary Care Provider [phone] Jenn Bryan PharmD Unavailable [phone] Rayne Medley NP Primary Care Provider [phone] Encounter Details Date Type Department Care Team (Late st Contact Info) Description 04/02/2024 Orders Only [facility] [address] [place] [address] Linh Thompson, ABDULLAHI Social History Tobacco Use [...] Care Team (Late st Contact Info) Description 12/30/2024 10:00 AM EDT Medication Management [facility] [address] [place] [address] Jenn Bryan, PharmD 230 [place] [address] 01/13/2025 10:30 AM EDT Office Visit [facility] [address] [place] [address] TarTanya quijano, OD [address] [place] [address] 01/18/2025 1:45 PM EDT Office Visit [facility] [address] [place] [address] Rayne Medley, MYRON 230 [place] [address] documented as of this encounter Procedures Procedure Name Priority Date/Time Associated Diagnosis Comments CREATININE, SERUM Routine 09/13/2024 3:2 3 PM EDT documented in this encounter Results * Creatinine, Serum (09/13/2024 3:23 PM EDT) Creatinine, Serum 0.78 0.5 - 1.4 mg/dL [facility] Estimated Glomerular Filt Rate >60 [facility] Comment:Chronic Kidney Disea se: Estimated GFR < 60 mL/min/1.91v7Hzkzmn Kidney Disease: Estimated GFR < 15 mL/min/1.73m2 09/13/2024 3:23 PM EDT 09/13/2024 4:07 PM EDT us Emily Padilla PROCESS DEVELOPMENT ENGINEER LAB BLOOD ORDERABLES Final Resu lt [facility] [address] [place] [address] [phone] documented in this encounter Visit Diagnoses Not on filedocumented in this encounter Additional Health Concerns Assessment Noted Time PHQ-9 Depression Total Score: 9 04/11/20 23 3:59 PM EDT documented as of this encounter Care Teams Correspondence School Teacher Relationship Specialty Start Date End Date Name, MD Marty [address] [place] [address] PCP - General Internal Medicine 03/31/24 07/08/24 Rayne Medley NP [address] [place] [address] PCP - General Family Medicine 07/09/24 Jnen Bryan PharmD [address] [place] [address] Pharmacist Internal Medicine 04/29/24 documented as of this encounter
== END 2024-11-30 13:13 | disposition home or self-care (01) ==
LOC: HO.US 13:12
PROVIDERS: PCP Nurse Practitioner Family; Visit Provider Nurse Practitioner Family
DX: D75.839 Thrombocytosis, unspecified (principal); M79.2 Neuralgia and neuritis, unspecified
CPT/HCPCS: 93926

== ENCOUNTER → 2024-11-30 13:22 | Outpatient (BNV) | payer MEDICAID, SELFPAY | PROVIDERS: PCP Nurse Practitioner Family; Visit Provider Radiology Diagnostic Radiology | DX: I70.211 Atherosclerosis of native arteries of extremities with intermittent claudication, right leg (principal) | CPT/HCPCS: 93926 ==

== ENCOUNTER 2025-02-22 11:11 | Outpatient (REF) | payer MEDICAID, SELFPAY ==
[2025-02-22 14:17] LABS: Alanine Aminotransferase 25 U/L (0-40); Albumin Level 4.1 g/dL (3.5-5.0); Alkaline Phosphatase 97 U/L (39-117); Anion Gap 11 (12-20); Aspartate Amino Transferase 26 U/L (5-37); Blood Urea Nitrogen 14 mg/dL (9-16); Calcium 9.2 mg/dL (8.4-10.2); Carbon Dioxide 25 mmol/L (22-29); Chloride 106 mmol/L (96-108); Cholesterol 152 mg/dL (<200); Estimated Glomerular Filt Rate > 60; HDL Cholesterol 53 mg/dL (>40); Potassium 4.0 mmol/L (3.3-5.1); Sodium 138 mmol/L (135-145); Total Protein 6.8 g/dL (6.5-8.0); Triglycerides 50 mg/dL (<150)
--- OUTSIDE RECORDS SUMMARY | 2025-02-22 15:18 | XMS_ITS | Encounter Summary ---
Author Organization [employer] Address [address] [place] [address] Care Team Providers Care Tow Picker Name Role Phone Name, Marty HOLDER Primary Care Provider [phone] Jenn Bryan PharmD Unavailable [phone] Rayne Medley NP Primary Care Provider [phone] Encounter Details Date Type Department Care Team ([facility] st Contact Info) Description 04/02/2024 Orders Only [facility] [address] [place] [address] Lihn Thompson RN Social History Tobacco Use Types [...] Care Team (Late st Contact Info) Description 02/24/2025 10:30 AM EDT Medication Management [facility] [address] [place] [address] Jenn Bryan, PharmD 230 [place] [address] documented as of this encounter Procedures Procedure Name Priority Date/Time Associated Diagnosis Comments CREATININE, SERUM Routine 09/13/2024 3:2 3 PM EDT documented in this encounter Results * Creatinine, Serum (09/13/2024 3:23 PM EDT) Creatinine, Serum 0.78 0.5 - 1.4 mg/dL [facility] Estimated Glomerular Filt Rate >60 [facility] Comment:Chronic Kidney Disea se: Estimated GFR < 60 mL/min/1.94z0Ulaayy Kidney Disease: Estimated GFR < 15 mL/min/1.73m2 09/13/2024 3:23 PM EDT 09/13/2024 4:07 PM EDT us Emily Padilla COMMUNITY ARTS CENTRE MANAGER LAB BLOOD ORDERABLES Final Resu lt [facility] [address] [place] [address] [phone] documented in this encounter Visit Diagnoses Not on filedocumented in this encounter Additional Health Concerns Assessment Noted Time PHQ-9 Depression Total Score: 9 04/11/20 23 3:59 PM EDT documented as of this encounter Care Teams Tow Picker Relationship Specialty Start Date End Date Name, MD Marty [address] [place] [phone] PCP - General Internal Medicine 03/31/24 07/08/24 Rayne Medley NP [address] [place] [address] PCP - General Family Medicine 07/09/24 Jenn Bryan PharmD [address] [place] [phone] Pharmacist Internal Medicine 04/29/24 documented as of this encounter
--- OUTSIDE RECORDS SUMMARY | 2025-02-22 15:18 | XMS_ITS | Encounter Summary ---
Author Organization [employer] Address [address] [facility] 7[address] [place] [address] Care Team Providers Care Editing Clerk Name Role Phone Jenn Bryan PharmD Unavailable [phone] Rayne Medley NP Primary Care Provider [phone] Reason for Visit * Reason Onset Date Comments Appointment Request 11/30/2024 Encounter Details Date Type Department Care Team ([facility] st Contact Info) Description 11/30/2024 Telephone [facility] [address] [place] [address] Rayne Medley NP [address] [place] [address] Appointment Request Social History Tobacco Use Types Packs/Day Years [...] encounter Miscellaneous Notes * Telephone Encounter - Alex Gabriel - 11/30/2024 10:47 AM EDT Telephone call received from patient's spouse reporting that patient will be out of town from 12/08/2024 through 12/23/2024 and will be unable to attend upcoming appointment. Requesting a call back to reschedule. documented in this encounter Plan of Treatment Upcoming Encounters Date Type Department Care Team (Late st Contact Info) Description 02/24/2025 10:30 AM EDT Medication Management [facility] [address] [place] [address] Jenn Bryan, GalloD 230 [place] [address] documented as of this encounter Visit Diagnoses Not on filedocumented in this encounter Additional Health Concerns Assessment Noted Time PHQ-9 Depression Total Score: 4 07/05/19 25 2:47 PM EST documented as of this encounter Care Teams Editing Clerk Relationship Specialty Start Date End Date Rayne Medley NP [address] [place] [address] PCP - General Family Medicine 07/09/24 Jenn Bryan, Hawa [address] [place] [phone] Pharmacist Internal Medicine 04/29/24 documented as of this encounter
--- OUTSIDE RECORDS SUMMARY | 2025-02-22 15:18 | XMS_ITS | Clinical Summary ---
Author Organization [employer] Address [address] [facility] [address] [place] [address] Care Team Providers Care Shaker Out Name Role Phone Jenn Bryan PharmD Unavailable [phone] Rayne Medley NP Primary Care Provider [phone] Allergies Active Allergy Reactions Criticality Noted Date Comments Metformin 08/24/2020 GI upset Medications anagrelide (Agrylin) 1 MG capsule Take 2 mg by mouth 3 times daily. Active Blood Glucose Monitoring Suppl (Power Content Lite) w/Device kit Use to test blood sugar 3 times daily 1 kit Active Blood Pressure kitIndications:Typ e 2 diabetes mellitus with diabetic neuropathy, with long-term current use of insulin ([facility]),Benign essential hypertension Use to check BP once daily as directed 1 kit Active acetaminophen (Tylenol) 500 MG tablet Take 2 tablets (1,000 mg) by mouth every 6 (six) hours if needed for moderate pain or fever. 50 tablet 5 Active Diclofenac Sodium 1 % gel Apply 4 g topically if needed in the morning, at noon, in the evening, and at bedtime (pain). 100 g 5 Active Additional Information Patient not taking.Reported on 12/30/2024 Alcohol Swabs (Alcohol Prep) 70 % padsIndications:Ty pe 2 diabetes mellitus with diabetic neuropathy, unspecified whether machine long goods helper insulin use ([facility]) USE DIRECTED THREE TIMES DAILY 200 each 3 Active cetirizine (ZyrTEC) 10 MG tabletIndications: Viral upper respiratory tract infection TAKE 1 TABLET BY MOUTH EVERY MORNING 90 tablet 1 05/21/2 025 Active lisinopril 20 MG tablet Take 1 tablet (20 mg) by mouth Once per day. 90 tablet 1 025 Active glipiZIDE (Glucotrol) 10 MG tabletIndications: Type 2 diabetes mellitus with hyperosmolarity without coma, without long-term current use of insulin ([facility]) Take 1.5 tablets (15 mg) by mouth before breakfast and before evening meal. 270 tablet 1 025 Active atorvastatin (Lipitor) 40 MG tablet Take 1 tablet (40 mg) by mouth in the evening. 90 tablet 1 025 Active amitriptyline (Elavil) 10 MG tablet TAKE 1 TABLET BY MOUTH AT BEDTIME 90 tablet Active BD Pen Needle Ruth Ultrafine 32G X 4 MM miscIndications:Di abetes mellitus without complication (CMS/[facility]) USE DIRECTED FOUR TIMES DAILY 100 each Active Multiple Vitamins-Minerals (CertaVite/Antioxi dants) tablet TAKE 1 TABLET BY MOUTH EVERY MORNING 90 tablet 3 025 Active Semaglutide, 2 MG/DOSE, (Ozempic, 2 MG/DOSE,) 8 MG/3ML solution pen-injectorIndica tions:Type 2 diabetes mellitus with diabetic neuropathy, with long-term current use of insulin ([facility]) Inject 0.75 mL (2 mg) under the skin 1 (one) time per week. 3 mL Active glucose blood (FreeStyle Precision Tyrone Test) test stripIndications:T ype 2 diabetes mellitus with diabetic neuropathy, with long-term current use of insulin ([facility]) Use to test blood sugar up to 2 times daily, as directed 50 each 025 Active TRUEplus Lancets 33G miscIndications:Ty pe 2 diabetes mellitus with diabetic neuropathy, with long-term current use of insulin ([facility]) TEST BLOOD SUGAR TWO TIMES DAILY 100 each Active aspirin 81 MG EC tablet Take 81 mg by mouth Once per day. Active Continuous Glucose Sensor (FreeStyle Jovanni 2 Plus Sensor) misc 2 kits every 14 (fourteen) days. 2 each 025 Active insulin degludec (Tresiba FlexTouch) 200 UNIT/ML injectionIndicatio ns:Type 2 diabetes mellitus with diabetic neuropathy, with long-term current use of insulin (CMS/HCC) Inject 32 Units under the skin in the morning. Active insulin lispro (HumaLOG KWIKPEN) 100 UNIT/ML injectionIndicatio ns:Type 2 diabetes mellitus with diabetic neuropathy, with long-term current use of insulin (CMS/HCC) Inject 8 Units under the skin with breakfast, with lunch, and with evening meal. Active Continuous Glucose Critical Care Unit Manager (FreeStyle Jovanni 3 Ashkum) deviceIndications: Type 2 diabetes mellitus with diabetic neuropathy, with long-term current use of insulin (CMS/HCC) 1 each Once per day. Use as directed for CGM 1 each 025 2024 Discontinued(P atient refused) Continuous Glucose Sensor (FreeStyle Jovanni 3 Plus Sensor) miscIndications:Ty pe 2 diabetes mellitus with diabetic neuropathy, with long-term current use of insulin (CMS/HCC) Apply 1 every 15 days as directed for CGM 2 each 11 025 2024 Discontinued(P atient refused) insulin degludec (Tresiba FlexTouch) 200 UNIT/ML injectionIndicatio ns:Type 2 diabetes mellitus with diabetic neuropathy, with long-term current use of insulin (CMS/HCC) Inject 24 Units under the skin in the morning. 9 mL 5 025 2024 Discontinued(R eorder (will not trigger notification to Pharmacy)) insulin lispro (HumaLOG KWIKPEN) 100 UNIT/ML injection Inject 4 Units under the skin with breakfast, with lunch, and with evening meal. 1 mL 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 10/12/2024 Assessment & Plan (10/31/2024 11:30 AM EDT): Increase tresba to 25 units nightly, Started ozempic, no side effects In care with MTM Routine general medical exam ination at a [facility] facility 10/12/2024 Assessment & Plan (10/31/2024 11:30 AM EDT): Anticipatory guidance reviewed Referred for colonoscopy, dental and eye care Neuropathic pain 10/12/2024 Bilateral impacted cerumen 10/12/2024 Assessment & Plan (10/31/2024 11:29 AM EDT): Return to clinic for irrigation Dietary counseling 09/13/2024 Assessment & Plan (10/31/2024 11:30 AM EDT): Dietary Recommendations: Fruits, vegetables, whole grains, [...] equivalent combination of moderate- and vigorous-intensity activity Assessment & Plan (09/13/2024 2:32 PM EDT): [...] counseling 09/13/2024 Urge incontinence of urine 09/13/2024 Assessment & Plan (10/12/2024 3:37 PM EDT): Upcoming visit with urology Assessment & Plan (09/17/2024 10:49 AM EDT): Pt reports urge incontinence on top of baseline urinary incontinence, Referral to urology Psa ordered Chronic symptom Hyperglycemia 09/13/2024 Assessment & Plan (09/13/2024 3:00 PM EDT): Stop humalog, Has not started tresiba has not started ozempic Start tresiba at 15 units nightly for 3 nights, Neuropathic pain of both feet 08/31/2024 Assessment & Plan (09/17/2024 10:50 AM EDT): Impairing ability to walk 200 meters. Will sign placard, Will facilitate walker with seat, suspect diabetic neuropathy Assessment & Plan (08/31/2024 3:55 PM EDT): [...] diabetic neuropath y 04/09/2024 Assessment & Plan (09/17/2024 10:48 AM EDT): Pt with persistent hyperglycemia, (hgb A1c >10) has cgm, since changing nutrition to minimize rice endorses symptomatic low blood sugar, as a result, pt has been holding tresiba, and taking humalog 20 units x 1 in am. Has not started ozempic as out of stock until next month Today pt will hold humalog, and initiate tresiba nightly at 15 units , nursing will outreach for fasting sugars . If elevated >200 will increase to 20 units. Plan to titrate tresiba until fasting sugars at goal and then add humalog. Assessment & Plan (04/09/2024 4:10 PM EDT): [...] routine eye exam Benign essential hypertension 02/01/2020 Assessment & Plan (10/12/2024 3:36 PM EDT): Focused on nutrition, and exercise Bp above goal both at home and in office, increase lisinopril to 10 mg Assessment & Plan (09/17/2024 10:51 AM EDT): Above goal today, continue lisinopril 5 mg, likely increase Close follow up Thrombocytosis 02/01/2020 Assessment & Plan (10/12/2024 3:29 PM EDT): In care with hematology, Assessment & Plan (09/17/2024 10:50 AM EDT): Urgency of management reviewed, Pt willing to have referral to hematology Assessment & Plan (08/31/2024 3:54 PM EDT): [...] Encounters Date Type Department Care Team Description 02/22/2025 Orders Only [facility] MEDICINE [address] [place] [phone] Rayne Medley NP 02/09/2025 Travel 02/01/2025 3:15 PM EDT Office Visit [facility] MEDICINE [address] [place] [address] Rayne Medley NP Type 2 diabetes mellitus with diabetic neuropathy, with long-term current use of insulin (CMS/[facility]) 02/01/2025 Travel 01/13/2025 10:30 AM EDT Office Visit [facility] OPTOMETRY [address] [place], [place] [phone] Tanya Gonzalez, OD Diabetes type 2, no ocular involvement (CMS/HCC) (Primary Dx); Combined forms of age-related cataract of both eyes; Presbyopia 01/13/2025 Travel 12/30/2024 Telephone [facility] MEDICINE [address] [place] [address] Jenn Bryan, PharmD Prior Authorization (Jovanni 3 CGM) 12/30/2024 Travel 12/30/2024 Telephone [facility] MEDICINE [address] [place] [address] Jenn Bryan, PharmD 12/22/2024 Refill [facility] MEDICINE [address] [place] [address] Emily Padilla FNP 12/14/2024 Refill [facility] CHC MED & PEDS [address] [place], [place] [phone] Rayne Medley NP Diabetes mellitus without complication (CMS/HCC) 11/30/2024 Orders Only [facility] MEDICINE [address] [place] [phone] Rayne Medley NP Thrombocytosis (Primary Dx); Neuropathic pain 11/30/[address] [address] Suzy Roque RN 11/30/[address] [address] Rayne Medley NP Appointment Request 11/29/2024 Patient Outreach [address] [address] Rayne Medley NP Care Coordination ([facility] program graduation ) 11/29/[address] [address] Rayne Medley NP Call Back Request 11/26/[address] [address] Rayne Medley NP from Last 3 Months Immunizations Immunization Administration Dates Next Due Hep B, adult [...] Sign Reading Time Taken Comments Blood Pressure 136/78 02/09/2025 10:32 AM EDT Pulse 119 02/01/2025 3:10 PM EDT Temperature 37.1 C (98.7 F) 02/01/2025 3:10 PM EDT Respiratory Rate 26 02/01/2025 3:10 PM EDT Oxygen Saturation 94% 02/01/2025 3:10 PM EDT Inhaled Oxygen Concentration - - Weight 94.9 kg (209 lb 3.2 oz) 02/01/2025 3:10 P M EDT Height 170.2 cm (5' 7 ) 02/01/2025 3:10 PM EDT Body Mass Index 32.77 02/01/2025 3:10 PM EDT Plan of Treatment Upcoming Encounters Date Type Department Care Team (Late st Contact Info) Description 02/24/2025 10:30 AM EDT Medication Management [facility] MEDICINE [address] [place], [place] [phone] Jenn rByan, PharmD [address] [place] [address] Health Maintenance Due Date Last Done Comments CT Colonography 1970 Colonoscopy 1970 Colorectal Cancer Screening 1970 FIT DNA/Cologuard 1970 FIT 1970 FOBT 1970 Sigmoidoscopy 1970 Zoster Vaccines (1 of 2) 2018 Pneumococcal Vaccine: 50+ Years (2 of 2 - PCV) 11/12/2022 11/12/2021 COVID-19 Vaccine ( season) 2025 06/18/2021, 09/27/2020, 08/22/2020 Influenza Vaccine (#1) 2025 04/01/2018, 2016 Diabetes: Hemoglobin A1C 04/01/2025 025, 09/29/2024, 07/05/2024, Additional history exists Diabetes: Foot Exam 04/09/2025 04/09/2024, 04/09/2024, 04/09/2024, Additional history exists Depression Screening 07/05/2025 07/05/2024, 07/05/19 25 SDOH Screening 09/09/2025 09/09/2024 Diabetes: Urine Protein Screening 09/16/2025 09/16/2024, 05/07/2021 Alcohol/Substance Use Screening 10/12/2025 10/12/2024 Disability Screening 10/12/2025 10/12/2024 Tobacco Screening 02/01/2026 02/01/2025 Lipid Panel 02/22/2026 02/22/2025, 10/08, 03/31/2024, Additional history exists Eye Exam 01/13/2027 01/13/2025, 12/2024, 01/13/2025, Additional history exists DTaP/Tdap/Td Vaccines (2 - Td or Tdap) 05/19/2027 05/19/2017 RSV Patients and Patients Aged 60 years or older (1 - 1-dose 75+ series) 10/19/2043 Hepatitis B Vaccines Completed 09/02/2019, 04/12/2019, 03/11/2019 HIV Screening Completed 11/02/2024 Hepatitis C Screening Completed 11/02/2024 HIB Vaccines Aged Out No longer eligi [...] patient's age to complete this topic Meningococcal B Vaccine Aged Out No l onger eligible based on patient's age to complete [...] Procedure Name Priority Date/Time Associated Diagnosis Comments LIPID PANEL, STANDARD Routine 02/22/2025 11:33 AM EDT BASIC METABOLIC PANEL Routine 02/22/2025 11:33 AM EDT HEPATIC FUNCTION PANEL Routine 02/22/2025 11:33 AM EDT POCT GLUCOSE Routine 02/01/2025 3:12 PM EDT Type 2 diabetes mellitus with diabetic neuropathy, with long-term current use of insulin ([facility]/HCC) POCT GLYCATED HEMOGLOBIN, TOTAL Routine 12/30/2024 10:15 AM EDT Type 2 diabetes mellitus with hyperosmolarity without coma, without long-term current use of insulin (CMS/HCC) VASC US LOWER EXTREMITY ARTERIAL DUPLEX RIGHT Routine 12/01/2024 10:33 AM EDT HEPATITIS C AB W/REFL TO HCV RNA, QN, PCR Routine 11/02/2024 2:35 PM EDT Routine general medical examination at a health care facility HIV 1/2 ANTIGEN/ANTIBODY, FOURTH GENERATION W/RFL Routine 11/02/2024 2:35 PM EDT Routine general medical examination at a health care facility ALBUMIN, RANDOM URINE W/CREATININE Routine 09/16/2024 1:31 PM EDT Type 2 diabetes mellitus with diabetic neuropathy, unspecified whether prison insulin use (CMS/[facility]) from Last 3 Months or Most Recently Relevant to Health Maintenance Results * Hepatic Function Panel (02/22/2025 11:33 AM EDT) Bilirubin, Total 0.5 0.0 - 1.0 mg/dL [facility] Bilirubin, Direct 0.2 0.0 - 0.5 mg/dL [facility] Aspartate Amino Transferase 26 5 - 37 U/L [facility] Alanine Aminotransferase 25 0 - 40 U/L [facility] Total Protein 6.8 6.5 - 8.0 g/dL [facility] Albumin Level 4.1 3.5 - 5.0 g/dL [facility] Alkaline Phosphatase 97 39 - 117 U/L [facility] 02/22/2025 11:3 3 AM EDT 02/22/2025 1:20 PM EDT us Rayne Medley GLUER MACHINE SETUP OPERATOR LAB BLOOD ORDERABLES Final Resul t [facility] [address] [place] [address] [phone] * Lipid Panel, Standard (02/22/2025 11:33 AM EDT) Triglycerides 50 <150 mg/dL [facility] Comment:Desirable Triglyceri de: less than 150 mg/dLBorderline High Triglyceride 150-199 mg/dLHigh Triglyceride: 200-499 mg/dLVery High Triglyceride: greater than or equal to 5OO mg/dL Cholesterol 152 <200 mg/dL [facility] Comment:Desirable Cholestero l: less than 200 mg/dLBorderline High Cholesterol: 200-239 mg/dLHigh Cholesterol: greater than 239 mg/dL LDL Cholesterol Calculated 89 <100 mg/dL [facility] Comment:Desirable LDL: less than 100 mg/dLNear Optimal/Above Optimal LDL: 110- 129 mg/dLBorderline High LDL: 130-159 mg/dLHigh LDL: 160-189 mg/dLVery High LDL: greater than or equal to 190 mg/dL HDL Cholesterol 53 >40 mg/dL [facility] Comment:Desirable HDL: great er than 40 mg/dL Note: This HDL assay may give artificially low results in patients with liver disease. 02/22/2025 11:3 3 AM EDT 02/22/2025 1:20 PM EDT us Rayne Medley NP LAB BLOOD ORDERABLES Final Resul t [facility] [address] [place] [phone] * (ABNORMAL) Basic Metabolic Panel (02/22/2025 11:33 AM EDT) Sodium 138 135 - 145 mmol/L [facility] Potassium 4.0 3.3 - 5.1 mmol/L [facility] Chloride 106 96 - 108 mmol/L [facility] Carbon Dioxide 25 22 - 29 mmol/L [facility] Anion Gap 11(L) 12 - 20 [facility] Urea Nitrogen (BUN) 14 9 - 16 mg/dL [facility] Creatinine, Serum 0.65 0.5 - 1.4 mg/dL [facility] Estimated Glomerular Filt Rate >60 [facility] Comment:Chronic Kidney Disea se: Estimated GFR < 60 mL/min/[id number] Kidney Disease: Estimated GFR < 15 mL/min/1.73m2 Glucose 220(H) 60 - 115 mg/dL [facility] Calcium 9.2 8.4 - 10.2 mg/dL [facility] 02/22/2025 11:3 3 AM EDT 02/22/2025 1:20 PM EDT us Rayne Medley NP LAB BLOOD ORDERABLES Final Resul t [facility] [address] [place] [phone] * (ABNORMAL) POCT Glucose (02/01/2025 3:12 PM EDT) Glucose Blood, POC 305(A) 60 - 200 mg/dL QC Media Lot # [id number] Lot# Expiration Date Blood Capillary blood specimen / Unknown 02/01/2025 3:12 PM EDT us Rayne Medley GLUER MACHINE SETUP OPERATOR POINT OF CARE TEST ENTER/EDIT OR DERABLES Final Result * (ABNORMAL) POCT HGB A1C (12/30/2024 10:15 AM EDT) Hemoglobin A1C 10.2(A) 4.0 - 5.7 % Blood 12/30/2024 10:1 5 AM EDT us Rayne Medley GLUER MACHINE SETUP OPERATOR POINT OF CARE TEST ENTER/EDIT OR DERABLES Final Result * Vascular US lower extremity arterial duplex right (12/01/2024 10:33 AM EDT) 12/01/2024 10:3 3 AM EDT Narrative [facility] - 12/01/2024 10:35 AM EDT [address] [address] Ultrasound Report Signed Patient: Lamin Jewell MR#: [id number] : 1970 Acct:[id number] Age/Sex: 54 / M ADM Date: 11/30/24 Loc: HO.US Attending Dr: Rayne Medley GLUER MACHINE SETUP OPERATOR Ordering Physician: Rayne Medley NP Date of Service: 11/30/24 Procedure(s): US arterial duplex LE RT Accession Number(s): [id number] cc: Rayne Medley NP CLINICAL HISTORY: throbocytosis, poorly controlled type II DM. numbness in feet, Arterial duplex ultrasound right lower extremity Comparison: None provided Findings: Continuous, pulsatile flow with multiphasic waveforms from common femoral arteries through the posterior tibial and dorsalis pedis arteries. There is elevated velocity within the right popliteal artery, peak systolic velocity 330 cm/sec, which may suggest the presence of a stenosis in the distal right femoral artery versus proximal right popliteal artery. Some aliasing is seen also suggesting turbulent flow. IMPRESSION: Multiphasic waveforms throughout the right lower extremity. Abrupt increased velocity in the popliteal artery suggests the presence of a stenosis in the distal SFA or proximal popliteal artery. No significant calcified atheromatous plaquing is appreciated. This document has been electronically signed by: Cynthia Banegas MD on 12/01/2024 10:33:44 Dictated By: Cynthia Banegas MD Signed By: <Electronically signed by Cynthia Banegas MD in [place]> 12/01/24 1035 DD/ 1033 TD/TT: 12/01/24 1033 Rating Examiner: Procedure Note Donotuseinterpreter, Image - 12/01/2024 [place] [address] Ultrasound Report Signed Patient: Mellisa Jewell#: M [id number] : 1970Acct:[id number] Age/Sex: 54 / MADM Date: 11/30/24 Loc: .US Attending Dr: Rayne Medley NP Ordering Physician: Rayne Medley NP Date of Service: 11/30/24 Procedure(s): US arterial duplex LE RT Accession Number(s): [id number] cc: Rayne Medley NP CLINICAL HISTORY: throbocytosis, poorly controlled type II DM. numbness infeet, Arterial duplex ultrasound right lower extremity Comparison: None provided Findings: Continuous, pulsatile flow with multiphasic waveforms from common femoral arteries through the posterior tibial and dorsalis pedis arteries. There is elevated velocity within the right popliteal artery, peak systolic velocity 330 cm/sec, which may suggest the presence of a stenosis in the distal right femoral artery versus proximal right popliteal artery. Some aliasing is seen also suggesting turbulent flow. IMPRESSION: Multiphasic waveforms throughout the right lower extremity. Abrupt increased velocity in the popliteal artery suggests the presence of a stenosis in the distal SFA or proximal popliteal artery. No significant calcified atheromatous plaquing is appreciated. This document has been electronically signed by: Cynthia Banegas MD on 12/01/2024 10:33:44 Dictated By: Cynthia Banegas MD Signed By: <Electronically signed by Cynthia Banegas MD in OV> 12/01/24 1035 DD/ 1033 TD/TT: 12/01/24 1033 Rating Examiner: us Rayne Medley NP CV VASCULAR PROCEDURES Final Res ult Performing Organization Address [facility] Co de Phone Number [facility] [address] [place] [phone] * Hepatitis C Antibody with Reflex to HCV, RNA, Quantitative, Real-Time PCR (11/02/2024 2:35 PM EDT) Hepatitis C Antibody Nonreactive Nonreactive [facility] Comment:Antibodies to HCV no t detected; does not exclude early acuteHCV infection. Blood Venous blood specimen / Unknown 11/02/2024 2:35 PM EDT 11/02/2024 3:55 PM EDT us Rayne Medley NP LAB BLOOD ORDERABLES Final Resul t Performing Organization Address [facility] Co de Phone Number [facility] [address] [place] [phone] * HIV-1/2 Antigen and Antibodies, Fourth Generation, with Reflexes (11/02/2024 2:35 PM EDT) HIV AB/AG Nonreactive Nonreactive [facility] Comment:HIV-1 p24 Ag and/or HIV-1/HIV-2 Ab not detected.A test result that is nonreactive does not exclude thepossibility of exposure to or infection with HIV-1 and/orHIV-2. Nonreactive results in this assay for individualswith prior exposure to HIV-1 and/or HIV-2 may be due toantigen and antibody levels that are below the limit ofdetection of this assay.The ElandniPetenko HIV Ag/Ab Combo assay result andsupplemental assay results should be interpreted inconjunction with the patient's clinical presentation,history and other laboratory results. If the results areinconsistent with clinical evidence, additional testing issuggested to confirm the result. Blood Venous blood specimen / Unknown 11/02/2024 2:35 PM EDT 11/02/2024 3:55 PM EDT us Rayne Medley NP LAB BLOOD ORDERABLES Final Resul t Performing Organization Address [facility] de Phone Number [facility] [address] [place] [phone] * Albumin, Random Urine W/Creatinine (09/16/2024 1:31 PM EDT) Creatinine, Urine 147.39 mg/dL [facility] Microalbumin Urine 23.0 mg/L [facility] Microalbum Creatinine Ratio Ur 15.6 <30 ug/mg cr [facility] Comment:Albumin/Creatinine R atio Reference Ranges: Normal: < 30 ug/mg creatinine Microalbuminuria: 30 - 300 ug/mg creatinineClinical Albuminuria: > 300 ug/mg creatinine Urine (Urine, Random) 09/16/2024 1:31 PM EDT 09/16/2024 3:56 PM EDT Marty Friedman MD LAB URINE ORDERABLES Final Resul t Performing Organization Address [facility] Co de Phone Number [facility] [address] [place] [phone] from Last 3 Months or Most Recently Relevant to Health Maintenance Insurance * Guarantor: Lamin Jewell Account Type Relation to Patient Date of Phone Billing Address Personal/Family Self [address] [place] [address] [facility] * Guarantor: Lamin Jewell Account Type Relation to Patient Date of Phone Billing Address Personal/Family Self [address] [place] [address] * Guarantor: Lamin Jeewll Account Type Relation to Patient Date of Phone Billing Address Personal/Family Self [address] [place] [address] * Guarantor: Lamin Jewell Account Type Relation to Patient Date of Phone Billing Address Personal/Family Self [address] [place] [address] Care Teams Shaker Out Relationship Specialty Start Date End Date Rayne Medley NP [address] [place] [address] PCP - General Family Medicine 07/09/24 Jenn Bryan PharmD [address] [place] [address] Pharmacist Internal Medicine 04/29/24
--- OUTSIDE RECORDS SUMMARY | 2025-02-22 15:18 | XMS_ITS | Encounter Summary ---
Author Organization [employer] Address [address] [facility] 7[address] [place] [address] Care Team Providers Care Telesales Professional Name Role Phone IrvinJenn PharmD Unavailable [phone] Rayne Medley NP Primary Care Provider [phone] Encounter Details Date Type Department Care Team ([facility] st Contact Info) Description 02/22/2025 Orders Only [facility] [address] [place] [address] Rayne Medley, MYRON [address] [place] [address] Social History Tobacco Use Types Packs/Day Years [...] Description 02/24/2025 10:30 AM EDT Medication Management [facility] [address] [place] [address] Jenn Bryan, PharmD [address] [place] [address] documented as of this encounter Procedures Procedure Name Priority Date/Time Associated Diagnosis Comments HEPATIC FUNCTION PANEL Routine 02/22/2025 11:33 AM EDT LIPID PANEL, STANDARD Routine 02/22/2025 11:33 AM EDT BASIC METABOLIC PANEL Routine 02/22/2025 11:33 AM EDT documented in this encounter Results * Lipid Panel, Standard (02/22/2025 11:33 AM EDT) Triglycerides 50 <150 mg/dL [facility] Comment:Desirable Triglyceri de: less than 150 mg/dLBorderline High Triglyceride 150-199 mg/dLHigh Triglyceride: 200-499 mg/dLVery High Triglyceride: greater than or equal to 5OO mg/dL Cholesterol 152 <200 mg/dL [facility] Comment:Desirable Cholestero l: less than 200 mg/dLBorderline High Cholesterol: 200-239 mg/dLHigh Cholesterol: greater than 239 mg/dL LDL Cholesterol Calculated 89 <100 mg/dL [facility] Comment:Desirable LDL: less than 100 mg/dLNear Optimal/Above Optimal LDL: 110- 129 mg/dLBorderline High LDL: 130-159 mg/dLHigh LDL: 160-189 mg/dLVery High LDL: greater than or equal to 190 mg/dL HDL Cholesterol 53 >40 mg/dL [facility] Comment:Desirable HDL: great er than 40 mg/dL Note: This HDL assay may give artificially low results in patients with liver disease. 02/22/2025 11:3 3 AM EDT 02/22/2025 1:20 PM EDT us Rayne Medley NP LAB BLOOD ORDERABLES Final Resul t [facility] [address] [place] [phone] * (ABNORMAL) Basic Metabolic Panel (02/22/2025 11:33 AM EDT) Sodium 138 135 - 145 mmol/L [facility] Potassium 4.0 3.3 - 5.1 mmol/L [facility] Chloride 106 96 - 108 mmol/L [facility] Carbon Dioxide 25 22 - 29 mmol/L [facility] Anion Gap 11(L) 12 - 20 [facility] Urea Nitrogen (BUN) 14 9 - 16 mg/dL [facility] Creatinine, Serum 0.65 0.5 - 1.4 mg/dL [facility] Estimated Glomerular Filt Rate >60 [facility] Comment:Chronic Kidney Disea se: Estimated GFR < 60 mL/min/[id number] Kidney Disease: Estimated GFR < 15 mL/min/1.73m2 Glucose 220(H) 60 - 115 mg/dL [facility] Calcium 9.2 8.4 - 10.2 mg/dL [facility] 02/22/2025 11:3 3 AM EDT 02/22/2025 1:20 PM EDT us Rayne Medley PACS ADMINISTRATOR LAB BLOOD ORDERABLES Final Resul t Performing Organization Address [facility] Co de Phone Number [facility] [address] [place] [phone] * Hepatic Function Panel (02/22/2025 11:33 AM EDT) Bilirubin, Total 0.5 0.0 - 1.0 mg/dL [facility] Bilirubin, Direct 0.2 0.0 - 0.5 mg/dL [facility] Aspartate Amino Transferase 26 5 - 37 U/L [facility] Alanine Aminotransferase 25 0 - 40 U/L [facility] Total Protein 6.8 6.5 - 8.0 g/dL [facility] Albumin Level 4.1 3.5 - 5.0 g/dL [facility] Alkaline Phosphatase 97 39 - 117 U/L [facility] 02/22/2025 11:3 3 AM EDT 02/22/2025 1:20 PM EDT us Rayne Medley PACS ADMINISTRATOR LAB BLOOD ORDERABLES Final Resul t Performing Organization Address [facility] de Phone Number [facility] [address] [place] [phone] documented in this encounter Visit Diagnoses Not on filedocumented in this encounter Additional Health Concerns Assessment Noted Time PHQ-9 Depression Total Score: 4 07/05/19 25 2:47 PM EST documented as of this encounter Care Teams Telesales Professional Relationship Specialty Start Date End Date Rayne Medley NP [address] [place] [address] PCP - General Family Medicine 07/09/24 Jenn Bryan PharmD [address] [place] [address] Pharmacist Internal Medicine 04/29/24 documented as of this encounter
--- OUTSIDE RECORDS SUMMARY | 2025-02-22 15:18 | XMS_ITS | Encounter Summary ---
Author Organization [employer] Address [address] [facility] 7[address] [place] [address] Care Team Providers Care Trust Officer Name Role Phone Jenn Bryan PharmD Unavailable [phone] Rayne Medley NP Primary Care Provider Reason for Visit * Reason Comments Med Refill Encounter Details Date Type Department Care Team ([facility] st Contact Info) Description 10/16/2024 Refill [facility] [address] [place] [address] Jenn Bryan, PharmD [address] [place] [address] Type 2 diabetes mellitus with diabetic neuropathy, with long-term current use of insulin ([facility]) Social History Tobacco Use Types Packs/Day Years [...] Description 02/24/2025 10:30 AM EDT Medication Management [facility] [address] [place] [address] Jenn Bryan PharmD [address] [place] [address] documented as of this encounter Visit Diagnoses Diagnosis Type 2 diabetes mellitus with diabetic neuropathy, with long-term current use of insulin ([facility]) documented in this encounter Additional Health Concerns Assessment Noted Time PHQ-9 Depression Total Score: 4 07/05/19 25 2:47 PM EST documented as of this encounter Care Teams Trust Officer Relationship Specialty Start Date End Date Rayne Medley NP [address] [place] [address] PCP - General Family Medicine 07/09/24 Jenn Bryan PharmD [address] [place] [phone] Pharmacist Internal Medicine 04/29/24 documented as of this encounter
== END 2025-02-22 11:12 | disposition home or self-care (01) ==
LOC: HO.HHCL 11:11
PROVIDERS: PCP Nurse Practitioner Family; Visit Provider Nurse Practitioner Family
DX: I10 Essential (primary) hypertension (principal); E11.40 Type 2 diabetes mellitus with diabetic neuropathy, unspecified; Z79.4 Long term (current) use of insulin
CPT/HCPCS: 36415; 80048; 80061; 80076

== ENCOUNTER 2025-03-15 11:24 | Outpatient (AMB) | payer MEDICAID, SELFPAY ==
--- NOTE | 2025-03-15 11:26 | MHC.OFFVIS ---
Vital Signs 03/15/25 11:27 Height 5 ft 7 in Weight 210 lb BMI 32.9 BP 119/77 Blood Pressure Location Lt brachial Position Sitting Pulse 124 H Pulse Oximetry (%) 98 Oxygen Delivery Method Room Air Intake Visit Reasons: colo screening Intake Note: Patient new consult for 1st pre Colonoscopy screening. Patient cc: swallowidenies any other GI issues for today visiting difficulties on and off Patient Service Technician Pst Required: No Patient Service Technician Pst Services: Patient Service Technician Pst Offered & Declined Accompanied by: Self / Same As Patient Allergies Seasonal Allergies Allergy (Verified 03/15/25 11:26) Runny Nose Medication List - Last Reconciled 03/15/25 by Jen Dior CNP anagrelide 2 mg (2 x 1 mg) PO TID aspirin 81 mg PO DAILY insulin glargine 28 units subcut DAILY semaglutide (Ozempic) 0.25 mg subcut QWEEK HPI HPI colo screening: Details: Patient is a 54-year-old male with PMH of diabetes, thrombocytopenia. Referred for pre colonoscopy screening 1st colo, never previously screened. Denies any significant bowel changes, reporting daily stools without issues of constipation or diarrhea. Rarely notes minimal blood on wiping, attributed to rare straining with hard stools; denies associated pain. Reports lifelong mild dysphagia requiring liquids with solid foods but denies choking or recent changes. Episodic mild heartburn, triggered by certain foods, relieved by antacids (Tums) with good effect; no regurgitation, no progressive symptoms. History of type 2 DM, on multiple agents; weight is stable per patient and has trended down with DM treatments. No other GI or systemic complaints at this time. Patient denies: fever/chills, n/v, appetite changes, regurgitation, unintentional wt loss or ab pain. Social hx: -denies ETOH use -denies recreational drug use -non-smoker - family hx as below -denies personal hx of CA -denies significant cardiopulmonary history -tolerated anesthesia in the past without difficulty [facility] History (Updated 03/15/25 @ 12:14 by Jen Dior CNP) Diabetes Acid reflux Colon cancer screening Blood clot in vein Diabetes type 2, controlled Essential thrombocythemia Surgical History Hx of appendectomy Family History Maternal Uncle Hx of diabetes mellitus Social History Household Members: Family Alcohol intake: never Patient Tobacco Use Status: Never used Tobacco service: No Current occupational status: unemployed Review of Systems Const Reports as per HPI ENT Reports as per HPI Card Reports as per HPI Resp Reports as per HPI GI Reports as per HPI Reports as per HPI Physical Exam Vital Signs: Last Vital Signs Pulse 124 H 03/15/25 11:27 BP 119/77 03/15/25 11:27 Pulse Ox 98 03/15/25 11:27 Oxygen Delivery Method Room Air 03/15/25 11:27 BMI result Body Mass Index 32.9 Const General: healthy appearing, no acute distress and well developed Nutritional Appearance: average body habitus Orientation/consciousness: patient oriented x3 HEENT Head: Yes normal to inspection, Yes normocephalic and Yes atraumatic Face and sinus: Yes normal facial exam Eyes General: appearance normal, both eyes and all related structures Neck Neck: Yes normal visual inspection Resp Effort & Inspection: normal respiratory effort, able to speak in complete sentences, no tracheal deviation and symmetric chest movement GI Palpation (GI): Tenderness to palpation present (GI) Auscultation: normal bowel sounds Neuro General: patient oriented x3 Gait exam (Neuro): Normal gait present Psych Appearance: grossly normal Mental Status: mental status grossly normal Speech and movement: Normal speech and movement present Affect: normal affect Attitude: cooperative Thought process: Normal thought process present Thought content: Normal thought content present Insight: Good insight present (Psych) Judgement: Good judgement present (Psych) Assessment & Plan Assessment & Plan (1) Colon cancer screening: Code(s): Z12.11 - Encounter for screening for malignant neoplasm of colon Category: Medical Plan: - Age-appropriate, no prior CRC screening, no FHx. Reviewed CRC screening guidelines?USPSTF recommends screening for average-risk adults starting at age 45, with options including colonoscopy every 10 years ( gold standard) or stool-based testing (FIT/Cologuard) at recommended intervals. Discussed pros/cons of each method, including that colonoscopy allows for direct visualization and polyp removal, while stool-based tests are less invasive but require follow-up colonoscopy if positive. - Additional Testing: FIT/Cologuard (stool-based CRC screening) ordered per pt preference. If positive, will refer for colonoscopy. If at any time pt prefers, can proceed directly to colonoscopy. - Medication Management: Send prescription for colonoscopy bowel prep (Miralax + Bisacodyl) in case pt opts for colonoscopy; written instructions provided. - Lifestyle Recommendations: Educate on clear liquids and prep instructions if/when proceeding with colonoscopy. Recommend a high-fiber diet for stool regularity. - Follow-Up: Pt to notify office if changing decision regarding stool vs. colonoscopy screening; nurse to call regarding DM med adjustments if colonoscopy performed. (2) Acid reflux: Code(s): K21.9 - Gastro-esophageal reflux disease without esophagitis Category: Medical Qualifiers: Esophagitis presence: esophagitis presence not specified Qualified Code(s): K21.9 - Gastro-esophageal reflux disease without esophagitis Plan: Rare heartburn responsive to OTC antacids, lifelong mild dysphagia without progression. Additional Testing: Upper endoscopy not indicated unless symptoms worsen or fail to respond to conservative measures. Medication Management: Continue OTC antacids PRN. Lifestyle Recommendations: Avoid trigger foods, maintain upright position post meals, small bites with liquids as tolerated. Follow-Up: Monitor for worsening/refractory GERD/dysphagia. (3) Diabetes: Code(s): E11.9 - Type 2 diabetes mellitus without complications Category: Medical Qualifiers: Diabetes mellitus type: type 2 Diabetes mellitus maintenance clerk insulin use: with custodial use Diabetes mellitus complication status: with hyperglycemia Qualified Code(s): E11.65 - Type 2 diabetes mellitus with hyperglycemia; Z79.4 - roll wrapper (current) use of insulin Plan: Ongoing medical management by PCP/endocrinology. Additional Testing: None at this visit. Medication Management: Suggested review and clarification of insulin regimen with PCP/endocrinology due to possible duplication. Lifestyle Recommendations: Continue glycemic control efforts; dietary counseling as needed. Follow-Up: As directed by DM care team. Plan Follow-up after cologuard if warranted or as needed based on Time: I spent a total of 33 minutes on the date of encounter which includes: Preparing to see the patient (reviewed previous documentation, test results and medical history) Performing a medically appropriate exam and/or evaluation Ordering medications, tests, and procedures Documenting clinical information in the health record Orders: Orders AMB Cologuard Today Z12.11 - Encounter for screening for malignant neoplasm of colon Medications: On Hold bisacodyl Take per colonoscopy instructions Hold Comment: Doctor's Order 5 mg PO ONCE 4 tabs 0RF polyethylene glycol 3350 (Miralax) per colonoscopy prep instructions Hold Comment: Doctor's Order 238 grams PO ONCE 238 grams 0RF Coding Level of Care Code New Pt New Pt Level 3 (50558) Patient Type New Diagnoses Colon cancer screening Z12.11 Gastroesophageal reflux disease, unspecified whether esophagitis present K21.9 Esophagitis presence: esophagitis presence not specified Type 2 diabetes mellitus with hyperglycemia, with long-term current use of insulin E11.65; Z79.4 Diabetes mellitus type: type 2 Diabetes mellitus custodial insulin use: with custodial use Diabetes mellitus complication status: with hyperglycemia
[2025-03-15 11:27] VITALS: BP 119/77; PULSE 124; O2SAT 98; BMI 32.9
--- OUTSIDE RECORDS SUMMARY | 2025-03-15 14:22 | XMS_ITS | Encounter Summary ---
Author Organization [employer] Address [address] [facility] 7[address] [place] [address] Care Team Providers Care Quality Assurance Representative Name Role Phone Jenn Bryan PharmD Unavailable [phone] Rayne Medley NP Primary Care Provider [phone] Reason for Visit * Reason Onset Date Comments Appointment Request 11/30/2024 Encounter Details Date Type Department Care Team ([facility] st Contact Info) Description 11/30/2024 Telephone [facility] [address] [place] [address] Rayne Medley NP [address] [place] [address] Appointment Request Social History Tobacco Use Types [...] Upcoming Encounters Date Type Department Care Team ([facility] st Contact Info) Description 03/23/2025 2:30 PM EDT Medication Management [facility] [address] [place] [address] Jenn Bryan, GalloD [address] [place] [address] documented as of this encounter Visit Diagnoses Not on filedocumented in this encounter Additional Health Concerns Assessment Noted Time PHQ-9 Depression Total Score: 4 07/05/19 25 2:47 PM EST documented as of this encounter Care Teams Quality Assurance Representative Relationship Specialty Start Date End Date Rayne Medley NP [address] [place] [address] PCP - General Family Medicine 07/09/24 Jenn Bryan, [place] [address] [place] [phone] Pharmacist Internal Medicine 04/29/24 Ni August Planer Setup OperatorDevice Engineer 03/11/25 documented as of this encounter
--- OUTSIDE RECORDS SUMMARY | 2025-03-15 14:22 | XMS_ITS | Clinical Summary ---
Author Organization [employer] Address [address] [facility] 7t [place] [address] Care Team Providers Care Lead Housekeeper Name Role Phone Jenn Bryan PharmD Unavailable [phone] Rayne Medley NP Primary Care Provider [phone] Allergies Active Allergy Reactions Criticality Noted Date Comments Metformin 08/24/2020 GI upset Medications anagrelide (Agrylin) 1 MG capsule Take 2 mg by mouth 3 times daily. Active Blood Glucose Monitoring Suppl (Newton Peripherals Lite) w/Device kit Use to test blood sugar 3 times daily 1 kit Active Blood Pressure kitIndications:Typ e 2 diabetes mellitus with diabetic neuropathy, with long-term current use of insulin (HCC),Benign essential hypertension Use to check BP once [...] diabetes mellitus with diabetic neuropathy, unspecified whether care home insulin use (HCC) USE DIRECTED THREE TIMES DAILY 200 each 3 025 Active cetirizine (ZyrTEC) 10 MG tabletIndications: Viral upper respiratory tract infection TAKE 1 TABLET BY MOUTH EVERY MORNING 90 tablet 1 025 Active lisinopril 20 MG tablet Take 1 tablet (20 mg) by mouth Once per day. 90 tablet 1 025 Active glipiZIDE (Glucotrol) 10 MG tabletIndications: Type 2 diabetes mellitus with hyperosmolarity without coma, without long-term current use of insulin ([facility]) Take 1.5 tablets (15 mg) by mouth before breakfast and before evening meal. 270 tablet 1 025 Active atorvastatin (Lipitor) 40 MG tablet Take 1 tablet (40 mg) by mouth in the evening. 90 tablet 1 025 Active BD Pen Needle Ruth Ultrafine 32G X 4 MM miscIndications:Di abetes mellitus without complication ([facility]) USE DIRECTED FOUR TIMES DAILY 100 each 3 025 Active Multiple Vitamins-Minerals (CertaVite/Antioxi dants) tablet TAKE 1 TABLET BY MOUTH EVERY MORNING 90 tablet 3 025 Active glucose blood (FreeStyle Precision Tyrone Test) test stripIndications:T ype 2 diabetes mellitus with diabetic neuropathy, with long-term current use of insulin ([facility]) Use to test blood sugar up to 2 times daily, as directed 50 each 025 Active TRUEplus Lancets 33G miscIndications:Ty pe 2 diabetes mellitus with diabetic neuropathy, with long-term current use of insulin ([facility]) TEST BLOOD SUGAR TWO TIMES DAILY 100 each 025 Active aspirin 81 MG EC tablet Take 81 mg by mouth Once per day. Active Continuous Glucose Sensor (FreeStyle Jovanni 2 Plus Sensor) misc 2 kits every 14 (fourteen) days. 2 each 2 025 Active Tirzepatide (Mounjaro) 5 MG/0.5ML solution auto-injectorIndic ations:Type 2 diabetes mellitus with diabetic neuropathy, with long-term current use of insulin ([facility]) Inject 5 mg under the skin 1 (one) time per week. 2 mL 025 Active insulin degludec (Tresiba FlexTouch) 200 UNIT/ML injectionIndicatio ns:Type 2 diabetes mellitus with diabetic neuropathy, with long-term current use of insulin ([facility]) Inject 40 Units under the skin in the morning. 9 mL 2 025 Active insulin lispro (HumaLOG KWIKPEN) 100 UNIT/ML injectionIndicatio ns:Type 2 diabetes mellitus with diabetic neuropathy, with long-term current use of insulin (HCC) Inject 12 Units under the skin with breakfast, with lunch, and with evening meal. 15 mL 2 025 Active amitriptyline (Elavil) 10 MG tablet TAKE 1 TABLET BY MOUTH AT BEDTIME 90 tablet Active amitriptyline (Elavil) 10 MG tablet TAKE 1 TABLET BY MOUTH AT BEDTIME 90 tablet 025 2024 Discontinued Semaglutide, 2 MG/DOSE, (Ozempic, 2 MG/DOSE,) 8 MG/3ML solution pen-injectorIndica tions:Type 2 diabetes mellitus with diabetic neuropathy, with long-term current use of insulin (HCC) Inject 0.75 mL (2 mg) under the skin 1 (one) time per week. 3 mL 11 025 2024 Discontinued(A lternate therapy) insulin degludec (Tresiba FlexTouch) 200 UNIT/ML injectionIndicatio ns:Type 2 diabetes mellitus with diabetic neuropathy, with long-term current use of insulin (HCC) Inject 32 Units under the skin in the morning. 025 2024 Discontinued(R eorder (will not trigger notification to Pharmacy)) insulin lispro (HumaLOG KWIKPEN) 100 UNIT/ML injectionIndicatio ns:Type 2 diabetes mellitus with diabetic neuropathy, with long-term current use of insulin (HCC) Inject 8 Units under the skin with breakfast, with lunch, and with evening meal. 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 10/12/2024 Assessment & Plan (10/31/2024 11:30 AM EDT): Increase tresba to 25 units nightly, Started ozempic, no side effects In care with MTM Routine general medical exam ination at a health care facility 10/12/2024 Assessment & Plan (10/31/2024 11:30 [...] Encounters Date Type Department Care Team Description 03/11/2025 Telephone [facility] MED & PEDS [address] [place], [place] [phone] Rayne Medley NP Care Coordination (ICP Care Plan) 03/04/2025 Refill [facility] MED[facility] [address] [place] [address] Rayne Medley NP 02/28/2025 Results Follow-Up [address] [address] Rayne Medley NP Hepatic Function Panel, Basic Metabolic Panel, Lipid Panel, Standard 02/24/2025 Travel 02/23/2025 Outside Procedure [facility] OPT[facility] [address] [place] [address] Rajni Morgan, OD Presbyopia (Primary Dx) 02/22/2025 1:00 PM EDT Office Visit [facility] [address] [place], [place] [phone] Rajni Morgan, OD Myopia of both eyes (Primary Dx) 02/22/2025 Orders Only [facility] [address] [place] [phone] Rayne Medley NP 02/09/2025 Travel 02/01/2025 3:15 PM EDT Office Visit [facility] [address] [place] [address] Rayne Medley NP Type 2 diabetes mellitus with diabetic neuropathy, with long-term current use of insulin ([facility]) 02/01/2025 Travel 01/13/2025 10:30 AM EDT Office Visit [facility] OPT[facility] [address] [place], [place] [phone] Tarka, Tanya, OD Diabetes type 2, no ocular involvement (CMS/[facility]) (Primary Dx); Combined forms of age-related cataract of both eyes; Presbyopia 01/13/2025 Travel 12/30/2024 Telephone [facility] [address] [place] [address] Jenn Bryan, PharmD Prior Authorization (Jovanni 3 CGM) 12/30/2024 Travel 12/30/2024 Telephone [facility] MED[facility]INE [address] [place] [address] Jenn Bryan, PharmD 12/22/2024 Refill [facility] [address] [place], [place] [phone] Emily Padilla FNP 12/14/2024 Refill [facility] MED & PEDS [address] [place], [place] [phone] Rayne Medley, MYRON Diabetes mellitus without complication (CMS/HCC) from Last 3 Months Immunizations Immunization Administration [...] Sign Reading Time Taken Comments Blood Pressure 122/78 02/24/2025 10:44 AM EDT Pulse 119 02/01/2025 3:10 PM [...] Care Team (Late st Contact Info) Description 03/23/2025 2:30 PM EDT Medication Management [facility] MED[facility] [address] [place], [place] [phone] Jenn Bryan, PharmD [address] [place], [place] [phone] Health Maintenance Due Date Last Done Comments CT Colonography 1968 Colonoscopy 1968 Colorectal Cancer Screening 1968 FIT DNA/Cologuard 1968 FIT 1968 FOBT 1968 Sigmoidoscopy 1968 Zoster Vaccines (1 of 2) 2018 Pneumococcal Vaccine: 50+ Years (2 of 2 - PCV) 11/12/2022 11/12/2021 COVID-19 Vaccine ( - season) 2025 06/18/2021, 09/27/2020, 08/22/2020 Influenza Vaccine [...] Screening 02/01/2026 02/01/2025 Lipid Panel 02/22/2026 02/22/2025, 0512/2024, 03/31/2024, Additional history exists Eye Exam 01/13/2027 01/13/2025, 08/0 12/2024, 01/13/2025, Additional history exists DTaP/Tdap/Td Vaccines [...] neuropathy, with long-term current use of insulin ([facility]) POCT GLYCATED HEMOGLOBIN, TOTAL Routine 12/30/2024 10:15 AM EDT Type 2 diabetes mellitus with hyperosmolarity without coma, without long-term current use of insulin (CMS/HCC) HEPATITIS C AB W/REFL TO HCV RNA, QN, PCR Routine 11/02/2024 2:35 PM EDT Routine general medical examination at a health care facility HIV 1/2 ANTIGEN/ANTIBODY, FOURTH GENERATION W/RFL Routine 11/02/2024 2:35 PM EDT Routine general medical examination at a health care facility ALBUMIN, RANDOM URINE W/CREATININE Routine 09/16/2024 1:31 PM EDT Type 2 diabetes mellitus with diabetic neuropathy, unspecified whether care home insulin use (CMS/HCC) from Last 3 Months or Most Recently Relevant to Health Maintenance Results * Hepatic Function Panel (02/22/2025 11:33 AM EDT) Bilirubin, Total 0.5 0.0 - 1.0 mg/dL [facility] Bilirubin, Direct 0.2 0.0 - 0.5 mg/dL [facility] Aspartate Amino Transferase 26 5 - 37 U/L [facility] Alanine Aminotransferase 25 0 - 40 U/L [facility] Total Protein 6.8 6.5 - 8.0 g/dL [facility] Albumin Level 4.1 3.5 - 5.0 g/dL [facility] Alkaline Phosphatase 97 39 - 117 U/L [facility] 02/22/2025 11:3 3 AM EDT 02/22/2025 1:20 PM EDT us Rayne Medley ROW BOSS LAB BLOOD ORDERABLES Final Resul t [facility] [address] [place], [place] [phone] * Lipid Panel, Standard (02/22/2025 11:33 AM EDT) Triglycerides 50 <150 mg/dL [facility] Comment:Desirable Triglyceri de: less than 150 mg/dLBorderline High Triglyceride 150-199 mg/dLHigh Triglyceride: 200-499 mg/dLVery High Triglyceride: greater than or equal to 5OO mg/dL Cholesterol 152 <200 mg/dL [facility] Comment:Desirable Cholestero l: less than 200 mg/dLBorderline High Cholesterol: 200-239 mg/dLHigh Cholesterol: greater than 239 mg/dL LDL Cholesterol Calculated 89 <100 mg/dL [facility] Comment:Desirable LDL: less than 100 mg/dLNear Optimal/Above Optimal LDL: 110- 129 mg/dLBorderline High LDL: 130-159 mg/dLHigh LDL: 160-189 mg/dLVery High LDL: greater than or equal to 190 mg/dL HDL Cholesterol 53 >40 mg/dL [facility] Comment:Desirable HDL: great er than 40 mg/dL Note: This HDL assay may give artificially low results in patients with liver disease. 02/22/2025 11:3 3 AM EDT 02/22/2025 1:20 PM EDT us Rayne Medley ROW BOSS LAB BLOOD ORDERABLES Final Resul t Performing Organization Address [facility]/ZIP Co de Phone Number [facility] [address] [place] [phone] * (ABNORMAL) Basic Metabolic Panel (02/22/2025 11:33 AM EDT) Sodium 138 135 - 145 mmol/L [facility] Potassium 4.0 3.3 - 5.1 mmol/L [facility] Chloride 106 96 - 108 mmol/L [facility] Carbon Dioxide 25 22 - 29 mmol/L [facility] Anion Gap 11(L) 12 - 20 [facility] Urea Nitrogen (BUN) 14 9 - 16 mg/dL [facility] Creatinine, Serum 0.65 0.5 - 1.4 mg/dL [facility] Estimated Glomerular Filt Rate >60 [facility] Comment:Chronic Kidney Disea se: Estimated GFR < 60 mL/min/1.24j5Vslkib Kidney Disease: Estimated GFR < 15 mL/min/1.73m2 Glucose 220(H) 60 - 115 mg/dL [facility] Calcium 9.2 8.4 - 10.2 mg/dL [facility] 02/22/2025 11:3 3 AM EDT 02/22/2025 1:20 PM EDT us Rayne Medley ROW BOSS LAB BLOOD ORDERABLES Final Resul t Performing Organization Address [facility]/ZIP Co de Phone Number [facility] [address] [place] [phone] * (ABNORMAL) POCT Glucose (02/01/2025 3:12 PM EDT) [facility] Glucose Blood, POC 305(A) 60 - 200 mg/dL QC Media Lot # [id number] Lot# Expiration Date Blood Capillary blood specimen / Unknown 02/01/2025 3:12 PM EDT Result [facility] Rayne Medley ROW BOSS POINT OF CARE TEST ENTER/EDIT OR DERABLES Final Result * (ABNORMAL) POCT HGB A1C (12/30/2024 10:15 AM EDT) [facility] Hemoglobin A1C 10.2(A) 4.0 - 5.7 % Blood 12/30/2024 10:1 5 AM EDT Result [facility] Rayne Medley ROW BOSS POINT OF CARE TEST ENTER/EDIT OR DERABLES Final Result * Hepatitis C Antibody with Reflex to HCV, RNA, Quantitative, Real-Time PCR (11/02/2024 2:35 PM EDT) [facility] Hepatitis C Antibody Nonreactive Nonreactive [facility] Comment:Antibodies to HCV no t detected; does not exclude early acuteHCV infection. Blood Venous blood specimen / Unknown 11/02/2024 2:35 PM EDT 11/02/2024 3:55 PM EDT Result [facility] Rayne Medley ROW BOSS LAB BLOOD ORDERABLES Final Resul t [facility] [address] [place] [phone] * HIV-1/2 Antigen and Antibodies, Fourth Generation, with Reflexes (11/02/2024 2:35 PM EDT) [facility] HIV AB/AG Nonreactive Nonreactive [facility] Comment:HIV-1 p24 Ag and/or HIV-1/HIV-2 Ab not detected.A test result that is nonreactive does not exclude thepossibility of exposure to or infection with HIV-1 and/orHIV-2. Nonreactive results in this assay for individualswith prior exposure to HIV-1 and/or HIV-2 may be due toantigen and antibody levels that are below the limit ofdetection of this assay.The [email or web address] HIV Ag/Ab Combo assay result andsupplemental assay results should be interpreted inconjunction with the patient's clinical presentation,history and other laboratory results. If the results areinconsistent with clinical evidence, additional testing issuggested to confirm the result. Blood Venous blood specimen / Unknown 11/02/2024 2:35 PM EDT 11/02/2024 3:55 PM EDT us Rayne Medley NP LAB BLOOD ORDERABLES Final Resul t Performing Organization Address [facility]/RUST de Phone Number [facility] [address] [place] [phone] * Albumin, Random Urine W/Creatinine (09/16/2024 1:31 PM EDT) Creatinine, Urine 147.39 mg/dL [facility] Microalbumin Urine 23.0 mg/L [facility] Microalbum Creatinine Ratio Ur 15.6 <30 ug/mg cr [facility] Comment:Albumin/Creatinine R atio Reference Ranges: Normal: < 30 ug/mg creatinine Microalbuminuria: 30 - 300 ug/mg creatinineClinical Albuminuria: > 300 ug/mg creatinine Urine (Urine, Random) 09/16/2024 1:31 PM EDT 09/16/2024 3:56 PM EDT us Marty Friedman MD LAB URINE ORDERABLES Final Resul t Performing Organization Address [facility] Co de Phone Number [facility] [address] [place] [phone] from Last 3 Months or Most Recently Relevant to Health Maintenance Insurance * Guarantor: Lamin Jewell Account Type Relation to Patient Date of Phone Billing Address Personal/Family Self [address] [place] [address] [facility] C[facility] * Guarantor: Lamin Jewell Account Type Relation to Patient Date of Phone Billing Address Personal/Family Self [address] [place] [address] Care Teams Lead Housekeeper Relationship Specialty Start Date End Date Rayne Medley NP [address] [facility] [place] [address] PCP - General Family Medicine 07/09/24 Jenn Bryan PharmD [address] [place] [address] Pharmacist Internal Medicine 04/29/24 Ni August Curriculum WriterBody Repairer 03/11/25
--- OUTSIDE RECORDS SUMMARY | 2025-03-15 14:22 | XMS_ITS | Encounter Summary ---
Author Organization [employer] Address [address] [facility] 7t [place] [address] Care Team Providers Care Fbi Investigator Name Role Phone LalithaurielJenn PharmD Unavailable [phone] Rayne Medley NP Primary Care Provider [phone] Reason for Visit * Reason Onset Date Comments Care Coordination 03/11/2025 ICP Care Plan Encounter Details Date Type Department Care Team ([facility] st Contact Info) Description 03/11/2025 Telephone [facility] MED & PEDS [address] [place] [address] Rayne Medley, MYRON [address] [place] [address] Care Coordination (ICP Care Plan) Social History Tobacco Use Types Packs/Day Years [...] encounter Miscellaneous Notes * Telephone Encounter - Ellen Mccann - 03/11/2025 12:53 PM EDT PCP Designee has received and reviewed Care Plan from [facility]: Accounts Receivable Processor: Ni August Contact Information: [phone] Care Plan scanned into patient???s EHR and notification sent to PCP. documented in this encounter Plan of Treatment Upcoming Encounters Date Type Department Care Team ([facility] st Contact Info) Description 03/23/2025 2:30 PM EDT Medication Management [facility] MEDICINE [address] [place] [address] Jenn Bryan, PharmD [address] [place] [address] documented as of this encounter Visit Diagnoses Not on filedocumented in this encounter Additional Health Concerns Assessment Noted Time PHQ-9 Depression Total Score: 4 07/05/19 25 2:47 PM EST documented as of this encounter Care Teams Fbi Investigator Relationship Specialty Start Date End Date Rayne Medley NP [address] [place] [address] PCP - General Family Medicine 07/09/24 Jenn Bryan, GalloD [address] [place] [address] CECILIA Junior [phone] Pharmacist Internal Medicine 04/29/24 Ni August Sas AnalystImaging Nurse 03/11/25 documented as of this encounter
--- OUTSIDE RECORDS SUMMARY | 2025-03-15 14:22 | XMS_ITS | Encounter Summary ---
Author Organization [employer] Address [address] [facility] 7t [place] [address] Care Team Providers Care It Integration Architect Name Role Phone Jenn Bryan PharmD Unavailable [phone] Rayne Medley NP Primary Care Provider [phone] Reason for Visit * Reason Comments Med Refill Encounter Details Date Type Department Care Team ([facility] st Contact Info) Description 10/16/2024 Refill [facility] MEDICINE [address] [place] [address] Jenn Bryan, PharmD [address] [place] [address] Type 2 diabetes mellitus with diabetic neuropathy, with long-term current use of insulin ([facility]) Social History Tobacco Use Types Packs/Day Years [...] Description 03/23/2025 2:30 PM EDT Medication Management [facility] MEDICINE [address] [place] [address] Jenn Bryan PharmD [address] [place], [place] documented as of this encounter Visit Diagnoses Diagnosis Type 2 diabetes mellitus with diabetic neuropathy, with long-term current use of insulin (HCC) documented in this encounter Additional Health Concerns Assessment Noted Time PHQ-9 Depression Total Score: 4 07/05/19 25 2:47 PM EST documented as of this encounter Care Teams It Integration Architect Relationship Specialty Start Date End Date Rayne Medley NP [address] [place] [address] PCP - General Family Medicine 07/09/24 Jenn Bryan PharmD [address] [place] [phone] Pharmacist Internal Medicine 04/29/24 Ni August Gyroscope RepairerDuct Layer Supervisor 03/11/25 documented as of this encounter
--- OUTSIDE RECORDS SUMMARY | 2025-03-15 14:22 | XMS_ITS | Encounter Summary ---
Author Organization [employer] Address [address] [facility] [address] [place] [address] Care Team Providers Care Entry Level Software Developer Name Role Phone Name, Marty HOLDER Primary Care Provider [phone] Jenn Bryan PharmD Unavailable [phone] Rayne Medley NP Primary Care Provider [phone] Encounter Details Date Type Department Care Team ([facility] st Contact Info) Description 04/02/2024 Orders Only [facility] [address] [place] [address] Linh Thompson RN Social History Tobacco Use [...] Description 03/23/2025 2:30 PM EDT Medication Management [facility] MED[facility] [address] [place] [address] Jenn Bryan, PharmD [address] [place] [address] documented as of this encounter Procedures Procedure Name Priority Date/Time Associated Diagnosis Comments CREATININE, SERUM Routine 09/13/2024 3:2 3 PM EDT documented in this encounter Results * Creatinine, Serum (09/13/2024 3:23 PM EDT) Creatinine, Serum 0.78 0.5 - 1.4 mg/dL [facility] Estimated Glomerular Filt Rate >60 [facility] Comment:Chronic Kidney Disea se: Estimated GFR < 60 mL/min/1.05d3Rxmhlw Kidney Disease: Estimated GFR < 15 mL/min/1.73m2 09/13/2024 3:23 PM EDT 09/13/2024 4:07 PM EDT us Emily Padilla FOOD VENDOR LAB BLOOD ORDERABLES Final Resu lt [facility] [address] [place] [address] [phone] documented in this encounter Visit Diagnoses Not on filedocumented in this encounter Additional Health Concerns Assessment Noted Time PHQ-9 Depression Total Score: 9 04/11/20 23 3:59 PM EDT documented as of this encounter Care Teams Entry Level Software Developer Relationship Specialty Start Date End Date Name, MD Marty [address] [place] [address] PCP - General Internal Medicine 03/31/24 07/08/24 Rayne Medley NP [address] [place] [address] PCP - General Family Medicine 07/09/24 Jenn Bryan PharmD [address] [place] [phone] Pharmacist Internal Medicine 04/29/24 Ni August TallierPairer Inspector 03/11/25 documented as of this encounter
== END 2025-03-15 12:09 | disposition home or self-care (01) ==
LOC: HO.HGI 11:24
PROVIDERS: PCP Nurse Practitioner Family; Visit Provider Nurse Practitioner Family
DX: Z01.818 Encounter for other preprocedural examination (principal); Z12.11 Encounter for screening for malignant neoplasm of colon; K21.9 Gastro-esophageal reflux disease without esophagitis; E11.65 Type 2 diabetes mellitus with hyperglycemia; Z79.4 Long term (current) use of insulin
CPT/HCPCS: 99203

== ENCOUNTER → 2025-03-15 11:24 | Outpatient (BNVA) | payer MEDICAID, SELFPAY | PROVIDERS: PCP Nurse Practitioner Family; Visit Provider Nurse Practitioner Family | DX: Z01.818 Encounter for other preprocedural examination (principal); Z12.11 Encounter for screening for malignant neoplasm of colon; K21.9 Gastro-esophageal reflux disease without esophagitis; E11.65 Type 2 diabetes mellitus with hyperglycemia; Z79.4 Long term (current) use of insulin | CPT/HCPCS: 99212 ==

== ENCOUNTER 2025-05-09 13:04 | Outpatient (REF) | payer MEDICAID, SELFPAY ==
--- NOTE | ~2025-05-09 | CT_ITS ---
EXAMINATION: CT ANGIOGRAM CHEST CLINICAL INFORMATION: Dyspnea for one week COMPARISON: June 18, 2017 TECHNIQUE: Multiple axial images were obtained through the chest after the administration of 85 mL of Omnipaque 350 intravenous contrast. Extensive vascular post-processing including two-dimensional and three-dimensional reformatted images were created and reviewed on an independent workstation. This CT examination was performed using dose optimization techniques as appropriate, variously including the following: *Automated exposure control *Adjustment of mA and/or kV according to patient size (this includes techniques or standardized protocols for targeted exams where dose is matched to indication/reason for exam; i.e. extremities or head) *Use of iterative reconstruction technique FINDINGS: QUALITY OF STUDY/CONTRAST BOLUS: Suboptimal opacification of distal secondary and tertiary branches PULMONARY ARTERIES: No central pulmonary emboli. Emboli of peripheral vessels cannot be excluded with any degree of certainty. THORACIC AORTA: No aneurysm, dissection, or vascular calcifications. LUNGS AND PLEURA: Axial series #6 Axial image 80/151: 3 x 5 mm pulmonary nodule in the lateral right lower lobe is stable. Image 95/151: There is a flat triangular nodule in the posterior basal left lower lobe, probably calcified, unchanged from the prior. MEDIASTINUM: Unremarkable CORONARY ARTERY CALCIFICATION: None CHEST WALL/AXILLA: No axillary or internal mammary lymphadenopathy. UPPER ABDOMEN: Unremarkable BONES: Unremarkable CT/CT angio chest PE protocol IMPRESSION: No filling defects were identified in the pulmonary arteries to suggest a pulmonary embolus. Suboptimal vessel opacification, as noted above. Stable pulmonary nodules requiring no further follow-up. Fleischner guidelines were followed. Electronically signed by: Eze Maher MD 05/09/2025 02:27 PM ELISA
[2025-05-09] MEDS: iohexoL 350 MG/ML 100 ML INFUS..BTL IV (13:59)
--- OUTSIDE RECORDS SUMMARY | 2025-05-09 16:43 | XMS_ITS | Clinical Summary ---
Author Organization [employer] Address [address] [facility] 7t [place] [address] Care Team Providers Care Well Shooter Name Role Phone Jenn Bryan PharmD Unavailable [phone] Rayne Medley NP Primary Care Provider [phone] Allergies Active Allergy Reactions Criticality Noted Date Comments Metformin 08/24/2020 GI upset Medications anagrelide (Agrylin) 1 MG capsule Take 2 mg by mouth 3 times daily. Active Blood Glucose Monitoring Suppl (PanOptica Lite) w/Device kit Use to test blood [...] DIRECTED THREE TIMES DAILY 200 each 3 04/29/20 25 3:48 PM EST Active cetirizine (ZyrTEC) 10 MG tabletIndications: Viral upper respiratory tract infection TAKE 1 TABLET BY MOUTH EVERY MORNING 90 tablet 1 025 Active Multiple Vitamins-Minerals (CertaVite/Antioxi dants) tablet TAKE 1 TABLET BY MOUTH EVERY MORNING 90 tablet 3 025 Active TRUEplus Lancets 33G miscIndications:Ty pe 2 diabetes mellitus with diabetic neuropathy, with long-term current use of insulin ([facility]) TEST BLOOD SUGAR TWO TIMES DAILY 100 each 11 04/29/20 3:48 PM EST 025 Active aspirin 81 MG EC tablet Take 81 mg by mouth Once per day. Active amitriptyline (Elavil) 10 MG tablet TAKE 1 TABLET BY MOUTH AT BEDTIME 90 tablet 025 Active Embecta Pen Needle Ruth 32G X 4 MM miscIndications:Di abetes mellitus without complication ([facility]) USE DIRECTED FOUR TIMES DAILY 100 each 3 04/29/20 3:48 PM EST 025 Active glipiZIDE (Glucotrol) 10 MG tabletIndications: Type 2 diabetes mellitus with hyperosmolarity without coma, without long-term current use of insulin ([facility]) TAKE 1 AND 1/2 TABLETS BY MOUTH TWICE DAILY IN THE MORNING AND IN THE EVENING BEFORE MEALS 270 tablet 1 04/29/20 3:48 PM EST 025 Active lisinopril 20 MG tablet TAKE 1 TABLET BY MOUTH EVERY MORNING 90 tablet 1 04/29/20 3:48 PM EST 025 Active atorvastatin (Lipitor) 40 MG tablet TAKE 1 TABLET BY MOUTH EVERY EVENING 90 tablet 1 04/29/20 3:48 PM EST 025 Active Dulaglutide (Trulicity) 0.75 MG/0.5ML solution auto-injectorIndic ations:Type 2 diabetes mellitus with diabetic neuropathy, with long-term current use of insulin ([facility]) Inject 0.75 mg under the skin 1 (one) time per week. 2 mL 04/29/20 3:48 PM EST 025 Active Continuous Glucose Sensor (FreeStyle Jovanni 3 Plus Sensor) miscIndications:Ty pe 2 diabetes mellitus with diabetic neuropathy, with long-term current use of insulin ([facility]) Apply 1 every 15 days as directed for CGM 2 each 04/29/20 3:48 PM EST Active glucose blood (FreeStyle Precision Tyrone Test) test stripIndications:T ype 2 diabetes mellitus with diabetic neuropathy, with long-term current use of insulin ([facility]) Use to test blood sugar up to 2 times daily, as directed 50 each 04/29/20 3:48 PM EST Active insulin degludec (Tresiba FlexTouch) 200 UNIT/ML injectionIndicatio ns:Type 2 diabetes mellitus with diabetic neuropathy, with long-term current use of insulin ([facility]) Inject 36 Units under the skin in the morning. 9 mL 2 04/29/20 4:03 PM EST Active insulin lispro (HumaLOG KWIKPEN) 100 UNIT/ML injectionIndicatio ns:Type 2 diabetes mellitus with diabetic neuropathy, with long-term current use of insulin ([facility]) Inject 14 Units under the skin with breakfast, with lunch, and with evening meal. 15 mL 2 04/29/20 4:03 PM EST Active Continuous Glucose Content Production Specialist (FreeStyle Jovanni 3 [place]) deviceIndications: Type 2 diabetes mellitus with diabetic neuropathy, with long-term current use of insulin ([facility]) 1 each Once per day. Use as directed for CGM Active lisinopril 20 MG tablet Take 1 tablet (20 mg) by mouth Once per day. 90 tablet 1 2024 Discontinued glipiZIDE (Glucotrol) 10 MG tabletIndications: Type 2 diabetes mellitus with hyperosmolarity without coma, without long-term current use of insulin ([facility]) Take 1.5 tablets (15 mg) by mouth before breakfast and before evening meal. 270 tablet 1 2024 Discontinued atorvastatin (Lipitor) 40 MG tablet Take 1 tablet (40 mg) by mouth in the evening. 90 tablet 1 2024 Discontinued BD Pen Needle Ruth Ultrafine 32G X 4 MM miscIndications:Di abetes mellitus without complication ([facility]) USE DIRECTED FOUR TIMES DAILY 100 each 3 025 2024 Discontinued glucose blood (FreeStyle Precision Tyrone Test) test stripIndications:T ype 2 diabetes mellitus with diabetic neuropathy, with long-term current use of insulin (HCC) Use to test blood sugar up to 2 times daily, as directed 50 each 025 2024 Discontinued(A lternate therapy) Continuous Glucose Sensor (FreeStyle Jovanni 2 Plus Sensor) misc 2 kits every 14 (fourteen) days. 2 each 2 02/01/ 025 2024 Discontinued Tirzepatide (Mounjaro) 5 MG/0.5ML solution auto-injectorIndic ations:Type 2 diabetes mellitus with diabetic neuropathy, with long-term current use of insulin (HCC) Inject 5 mg under the skin 1 (one) time per week. 2 mL 11 025 2024 Discontinued(A lternate therapy) insulin lispro (HumaLOG KWIKPEN) 100 UNIT/ML injectionIndicatio ns:Type 2 diabetes mellitus with diabetic neuropathy, with long-term current use of insulin (HCC) Inject 12 Units under the skin with breakfast, with lunch, and with evening meal. 15 mL 2 025 2024 Discontinued(R eorder (will not trigger notification to Pharmacy)) insulin degludec (Tresiba FlexTouch) 200 UNIT/ML injectionIndicatio ns:Type 2 diabetes mellitus with diabetic neuropathy, with long-term current use of insulin (HCC) Inject 64 Units under the skin in the morning. 9 mL 2 025 2024 Discontinued(R eorder (will not trigger notification to Pharmacy)) Continuous Glucose Sensor (FreeStyle Jovanni 2 Plus Sensor) [facility] USE DIRECTED TO TEST BLOOD SUGAR. CHANGE EVERY 15 DAYS 2 each 2 025 2024 Discontinued(A lternate therapy) Continuous Glucose Content Production Specialist (FreeStyle Jovanni 3 [place]) deviceIndications: Type 2 diabetes mellitus with diabetic neuropathy, with long-term current use of insulin (HCC) 1 each Once per day. 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 10/12/2024 Assessment & Plan (03/16/2025 11:45 AM EDT): Above goal, pt opts for reinstating insulin Increased stress at home, Declines nutriton referral Care coordinated with ROSARIO mathis sent 4 units TID with meals Assessment & Plan (10/31/2024 11:30 AM EDT): Increase tresba to 25 units nightly, Started ozempic, no side effects In care with MTM Routine general medical exam ination at a [facility] care facility 10/12/2024 Assessment & Plan (10/31/2024 [...] Encounters Date Type Department Care Team Description 04/29/2025 Travel 04/28/2025 Refill [facility] [address] [place] [address] Jenn Bryan, PharmD Type 2 diabetes mellitus with hyperosmolarity without coma, without long-term current use of insulin (HCC) 04/23/2025 Refill [facility] [address] [place] [address] Rayne Medley NP 04/22/2025 Telephone [facility] [address] [place] [address] Jenn Bryan, PharmD 04/18/2025 Refill [facility] [address] [place] [address] Rayne Medley NP Diabetes mellitus without complication (HCC) 03/23/2025 Travel 03/11/2025 Telephone [facility] [address] [place] [address] Rayne Medley NP Care Coordination (ICP Care Plan) 03/04/2025 Refill [facility] [address] [facility] [place] [address] Rayne Medley NP 02/28/2025 Results Follow-Up [facility] [address] [place] [address] Rayne Medley, MYRON Hepatic Function Panel, Basic Metabolic Panel, Lipid Panel, Standard 02/24/2025 Travel 02/23/2025 Outside Procedure [facility] [address] [place] [address] EddieGus hardyn, OD Presbyopia (Primary Dx) 02/22/2025 1:00 PM EDT Office Visit [facility] [address] [place] [address] EddieGusn, OD Myopia of both eyes (Primary Dx) 02/22/2025 Orders Only [facility] [address] [facility] [place] [address] Rayne Medley NP 02/09/2025 Travel from Last 3 Months Immunizations Immunization Administration [...] Care Team (Late st Contact Info) Description 05/26/2025 9:30 AM EST Medication Management [facility] [address] [place] [address] Jenn Bryan, PharmD [address] [place] [address] Health Maintenance Due Date Last Done Comments CT Colonography 1968 Colonoscopy 1968 Colorectal Cancer Screening 1968 FIT DNA/Cologuard 1968 FIT 1968 FOBT 1968 Sigmoidoscopy 1968 RSV Patients and Patients Aged 60 years or older (1 - Risk 50-74 years 1-dose series) 2018 Zoster Vaccines (1 of 2) 2018 Pneumococcal Vaccine: 50+ Years (2 of 2 - PCV) 11/12/2022 11/12/2021 COVID-19 Vaccine ( - season) 2025 06/18/2021, 09/27/2020, 08/22/2020 Influenza Vaccine (#1) 2025 04/01/2018, 2016 Diabetes: Foot Exam 04/09/2025 04/09/2024, 04/09/2024, 04/09/2024, Additional history exists Diabetes: Hemoglobin A1C 06/23/2025 025, 12/30/2024, 09/29/2024, Additional history exists Depression Screening 07/05/2025 07/05/2024, 07/05/19 25 SDOH Screening 09/09/2025 09/09/2024 Diabetes: Urine Protein Screening 09/16/2025 09/16/2024, 09/16/2024, 05/07/2021, Additional history exists Alcohol/Substance Use Screening 10/12/2025 10/12/2024 Disability Screening 10/12/2025 10/12/2024 Tobacco Screening 02/01/2026 02/01/2025 Lipid Panel 02/22/2026 02/22/2025, 10/08, 03/31/2024, Additional history exists Eye Exam 01/13/2027 01/13/2025, 080 12/2024, 01/13/2025, Additional history exists DTaP/Tdap/Td Vaccines (2 - Td or Tdap) 05/19/2027 05/19/2017 Hepatitis B Vaccines Completed 09/02/2019, 04/12/2019, 03/11/2019 [...] on patient's age to complete this topic Goals Goal Patient Goal Type Associated Problems Recent Progress Patient-Stated? Author Help patients manage their type 2 diabetes Care Plan Help patients manage their type 2 diabetes No Puia, Jenn, PharmD Weekly blood pressure task Care Plan Weekly blood pressure task No Puia, Jenn, PharmD Help patients manage their type 2 diabetes Care Plan Help patients manage their type 2 diabetes No Puia, Jenn, PharmD Patient has chronic kidney disease Care Plan Patient has chronic kidney disease No Puia, Jenn, PharmD Weekly blood pressure task Care Plan Weekly blood pressure task No Puia, Jenn, PharmD Patient has chronic kidney disease Care Plan Patient has chronic kidney disease No Puia, Jenn, PharmD Weekly blood pressure task Care Plan Weekly blood pressure task No Puia, Jenn, PharmD Weekly blood pressure task Care Plan Weekly blood pressure task No Puia, Jenn, PharmD Patient has chronic kidney disease Care Plan Patient has chronic kidney disease No Puia, Jenn, PharmD Patient has chronic kidney disease Care Plan Patient has chronic kidney disease No Puia, Jenn, PharmD Procedures Procedure Name Priority Date/Time Associated Diagnosis Comments POCT GLUCOSE Routine 03/23/2025 3:01 PM EDT Type 2 diabetes mellitus with diabetic neuropathy, with long-term current use of insulin (HCC) POCT GLYCATED HEMOGLOBIN, TOTAL Routine 03/23/2025 3:00 PM EDT Type 2 diabetes mellitus with diabetic neuropathy, with long-term current use of insulin (HCC) LIPID PANEL, STANDARD Routine 02/22/2025 11:33 AM EDT BASIC METABOLIC PANEL Routine 02/22/2025 11:33 AM EDT HEPATIC FUNCTION PANEL Routine 02/22/2025 11:33 AM EDT HEPATITIS C AB W/REFL TO HCV RNA, QN, PCR Routine 11/02/2024 2:35 PM EDT Routine general medical examination at a health care facility HIV 1/2 ANTIGEN/ANTIBODY, FOURTH GENERATION W/RFL Routine 11/02/2024 2:35 PM EDT Routine general medical examination at a [facility] care facility ALBUMIN, RANDOM URINE W/CREATININE Routine 09/16/2024 1:31 PM EDT Type 2 diabetes mellitus with diabetic neuropathy, unspecified whether care home insulin use (CMS/HCC) from Last 3 Months or Most Recently Relevant to Health Maintenance Results * (ABNORMAL) POCT Glucose (03/23/2025 3:01 PM EDT) Glucose Blood, POC 367(A) 60 - 200 mg/dL Blood Capillary blood specimen / Unknown 03/23/2025 3:01 PM EDT Rayne Medley NP POINT OF CARE TEST ENTER/EDIT OR DERABLES Final Result * (ABNORMAL) POCT Hgb A1c (03/23/2025 3:00 PM EDT) Hemoglobin A1C 11.8(A) 4.0 - 5.7 % Blood 03/23/2025 3:00 PM EDT Rayne Medley NP POINT OF CARE TEST ENTER/EDIT OR DERABLES Final Result * Hepatic Function Panel (02/22/2025 11:33 AM EDT) Bilirubin, Total 0.5 0.0 - 1.0 mg/dL [facility] Bilirubin, Direct 0.2 0.0 - 0.5 mg/dL [facility] Aspartate Amino Transferase 26 5 - 37 U/L [facility] Alanine Aminotransferase 25 0 - 40 U/L [facility] Total Protein 6.8 6.5 - 8.0 g/dL [facility] Albumin Level 4.1 3.5 - 5.0 g/dL [facility] Alkaline Phosphatase 97 39 - 117 U/L [facility] 02/22/2025 11:3 3 AM EDT 02/22/2025 1:20 PM EDT us Rayne Medley NP LAB BLOOD ORDERABLES Final Resul t [facility] [address] [place] [phone] * Lipid Panel, Standard (02/22/2025 11:33 AM EDT) Triglycerides 50 <150 mg/dL [facility] Comment:Desirable Triglyceri de: less than 150 mg/dLBorderline High Triglyceride 150-199 mg/dLHigh Triglyceride: 200-499 mg/dLVery High Triglyceride: greater than or equal to 5OO mg/dL Cholesterol 152 <200 mg/dL [facility] Comment:Desirable Cholestero l: less than 200 mg/dLBorderline High Cholesterol: 200-239 mg/dLHigh Cholesterol: greater than 239 mg/dL LDL Cholesterol Calculated 89 <100 mg/dL [facility] Comment:Desirable LDL: less than 100 mg/dLNear Optimal/Above Optimal LDL: 110- 129 mg/dLBorderline High LDL: 130-159 mg/dLHigh LDL: 160-189 mg/dLVery High LDL: greater than or equal to 190 mg/dL HDL Cholesterol 53 >40 mg/dL [facility] Comment:Desirable HDL: great er than 40 mg/dL Note: This HDL assay may give artificially low results in patients with liver disease. 02/22/2025 11:3 3 AM EDT 02/22/2025 1:20 PM EDT us Rayne Medley MOLD REPAIRER LAB BLOOD ORDERABLES Final Resul t Performing Organization Address [facility] Co de Phone Number [facility] [address] [place] [address] [phone] * (ABNORMAL) Basic Metabolic Panel (02/22/2025 11:33 AM EDT) Sodium 138 135 - 145 mmol/L [facility] Potassium 4.0 3.3 - 5.1 mmol/L [facility] Chloride 106 96 - 108 mmol/L [facility] Carbon Dioxide 25 22 - 29 mmol/L [facility] Anion Gap 11(L) 12 - 20 [facility] Urea Nitrogen (BUN) 14 9 - 16 mg/dL [facility] Creatinine, Serum 0.65 0.5 - 1.4 mg/dL [facility] Estimated Glomerular Filt Rate >60 [facility] Comment:Chronic Kidney Disea se: Estimated GFR < 60 mL/min/1.77o2Yhgscq Kidney Disease: Estimated GFR < 15 mL/min/1.73m2 Glucose 220(H) 60 - 115 mg/dL [facility] Calcium 9.2 8.4 - 10.2 mg/dL [facility] 02/22/2025 11:3 3 AM EDT 02/22/2025 1:20 PM EDT us Rayne Medley MOLD REPAIRER LAB BLOOD ORDERABLES Final Resul t Performing Organization Address [facility] Co de Phone Number [facility] [address] [place] [address] [phone] * Hepatitis C Antibody with Reflex to HCV, RNA, Quantitative, Real-Time PCR (11/02/2024 2:35 PM EDT) Hepatitis C Antibody Nonreactive Nonreactive [facility] Comment:Antibodies to HCV no t detected; does not exclude early acuteHCV infection. Blood Venous blood specimen / Unknown 11/02/2024 2:35 PM EDT 11/02/2024 3:55 PM EDT us Rayne Medley NP LAB BLOOD ORDERABLES Final Resul t Performing Organization Address [facility]/ZIP Co de Phone Number [facility] [address] [place] [phone] * HIV-1/2 Antigen and Antibodies, Fourth Generation, with Reflexes (11/02/2024 2:35 PM EDT) HIV AB/AG Nonreactive Nonreactive [facility] Comment:HIV-1 p24 Ag and/or HIV-1/HIV-2 Ab not detected.A test result that is nonreactive does not exclude thepossibility of exposure to or infection with HIV-1 and/orHIV-2. Nonreactive results in this assay for individualswith prior exposure to HIV-1 and/or HIV-2 may be due toantigen and antibody levels that are below the limit ofdetection of this assay.The [employer] HIV Ag/Ab Combo assay result andsupplemental assay results should be interpreted inconjunction with the patient's clinical presentation,history and other laboratory results. If the results areinconsistent with clinical evidence, additional testing issuggested to confirm the result. Blood Venous blood specimen / Unknown 11/02/2024 2:35 PM EDT 11/02/2024 3:55 PM EDT us Rayne Medley NP LAB BLOOD ORDERABLES Final Resul t Performing Organization Address City/[facility]/ZIP Co de Phone Number [facility] [address] [place] [address] [phone] * Albumin, Random Urine W/Creatinine (09/16/2024 1:31 PM EDT) Creatinine, Urine 147.39 mg/dL [facility] Microalbumin Urine 23.0 mg/L [facility] Microalbum Creatinine Ratio Ur 15.6 <30 ug/mg cr [facility] Comment:Albumin/Creatinine R atio Reference Ranges: Normal: < 30 ug/mg creatinine Microalbuminuria: 30 - 300 ug/mg creatinineClinical Albuminuria: > 300 ug/mg creatinine Urine (Urine, Random) 09/16/2024 1:31 PM EDT 09/16/2024 3:56 PM EDT us Marty Name LAB URINE ORDERABLES Final Resul t [facility] [address] [place] [address] [phone] from Last 3 Months or Most Recently Relevant to Health Maintenance Additional Health Concerns Active Problems Noted Date Diagnosed Date Help patients manage their type 2 diabetes 04/22 Weekly blood pressure task 04/22/2025 Help patients manage their type 2 diabetes 04/22 Patient has chronic kidney disease 04/22/2025 Weekly blood pressure task 04/22/2025 Patient has chronic kidney disease 04/22/2025 Weekly blood pressure task 04/28/2025 Weekly blood pressure task 04/28/2025 Patient has chronic kidney disease 04/28/2025 Patient has chronic kidney disease 04/28/2025 [facility] * Guarantor: Lamin Jewell Account Type Relation to Patient Date of Phone Billing Address Personal/Family Self [address] [place] [address] Care Teams Well Shooter Relationship Specialty Start Date End Date Rayne Medley NP [address] [place] [address] PCP - General Family Medicine 07/09/24 Jenn Bryan PharmD [address] [place] [address] Pharmacist Internal Medicine 04/29/24 Ni August Employee Relations ManagerChief Meteorologist 03/11/25
--- OUTSIDE RECORDS SUMMARY | 2025-05-09 16:43 | XMS_ITS | Encounter Summary ---
Author Organization [employer] Address [address] [facility] 7t [place] [address] Care Team Providers Care Longitudinal Float Operator Name Role Phone Jenn Bryan PharmD Unavailable [phone] Rayne Medley NP Primary Care Provider [phone] Reason for Visit * Reason Comments Med Refill Encounter Details Date Type Department Care Team ([facility] st Contact Info) Description 10/16/2024 Refill [facility] [address] [place] [address] Jenn Bryan, PharmD [address] [place] [address] Type 2 diabetes mellitus with diabetic neuropathy, with long-term current use of insulin ([facility]) Social History Tobacco Use Types Packs/Day Years [...] Description 05/26/2025 9:30 AM EST Medication Management [facility] [address] [place] [address] Jenn Bryan PharmD [address] [place], [place] documented as of this encounter Visit Diagnoses Diagnosis Type 2 diabetes mellitus with diabetic neuropathy, with long-term current use of insulin (HCC) documented in this encounter Additional Health Concerns Assessment Noted Time PHQ-9 Depression Total Score: 4 07/05/19 25 2:47 PM EST documented as of this encounter Care Teams Longitudinal Float Operator Relationship Specialty Start Date End Date Rayne Medley NP [address] [place] [address] PCP - General Family Medicine 07/09/24 Jenn Bryan PharmD [address] [place] [phone] Pharmacist Internal Medicine 04/29/24 Ni August Director Of National SalesPersonal Injury Litigation Paralegal 03/11/25 documented as of this encounter
--- OUTSIDE RECORDS SUMMARY | 2025-05-09 16:43 | XMS_ITS | Encounter Summary ---
Author Organization [employer] Address [address] [facility] 7t [place] [address] Care Team Providers Care Paid Internship Name Role Phone Jenn Bryan PharmD Unavailable [phone] Rayne Medley NP Primary Care Provider [phone] Reason for Visit * Reason Onset Date Comments Appointment Request 11/30/2024 Encounter Details Date Type Department Care Team ([facility] st Contact Info) Description 11/30/2024 Telephone [facility] [address] [place] [address] Rayne Medley, MYRON [address] [place] [address] Appointment Request Social History Tobacco Use Types [...] Upcoming Encounters Date Type Department Care Team ([facility] st Contact Info) Description 05/26/2025 9:30 AM EST Medication Management [facility] [address] [place] [address] Jenn Bryan, GalloD [address] [place] [address] documented as of this encounter Visit Diagnoses Not on filedocumented in this encounter Additional Health Concerns Assessment Noted Time PHQ-9 Depression Total Score: 4 07/05/19 25 2:47 PM EST documented as of this encounter Care Teams Paid Internship Relationship Specialty Start Date End Date Rayne Medley NP [address] [place] [address] PCP - General Family Medicine 07/09/24 Jenn Bryan, Hawa [address] [place] [phone] Pharmacist Internal Medicine 04/29/24 Ni August Tooth Cutter PinionLining Maker 03/11/25 documented as of this encounter
--- OUTSIDE RECORDS SUMMARY | 2025-05-09 16:43 | XMS_ITS | Encounter Summary ---
Author Organization [employer] Address [address] [place] [address] Care Team Providers Care Mushroom Cutter Name Role Phone Name, Marty HOLDER Primary Care Provider [phone] Jenn Bryan PharmD Unavailable [phone] Rayne Medley NP Primary Care Provider [phone] Encounter Details Date Type Department Care Team ([facility] st Contact Info) Description 04/02/2024 Orders Only [facility] [address] [place] [address] Linh Thompson RN Social History Tobacco Use [...] 9:30 AM EST Medication Management [facility] [address] [place] [address] Jenn Bryan, PharmD [address] [place] [address] documented as of this encounter Procedures Procedure Name Priority Date/Time Associated Diagnosis Comments CREATININE, SERUM Routine 09/13/2024 3:2 3 PM EDT documented in this encounter Results * Creatinine, Serum (09/13/2024 3:23 PM EDT) Creatinine, Serum 0.78 0.5 - 1.4 mg/dL [facility] Estimated Glomerular Filt Rate >60 [facility] Comment:Chronic Kidney Disea se: Estimated GFR < 60 mL/min/1.41d2Zronwk Kidney Disease: Estimated GFR < 15 mL/min/1.73m2 09/13/2024 3:23 PM EDT 09/13/2024 4:07 PM EDT us Emily Padilla [employer] [facility] BLOOD ORDERABLES Final Resu lt [facility] [address] [place] [address] [phone] documented in this encounter Visit Diagnoses Not on filedocumented in this encounter Additional Health Concerns Assessment Noted Time PHQ-9 Depression Total Score: 9 04/11/20 23 3:59 PM EDT documented as of this encounter Care Teams Mushroom Cutter Relationship Specialty Start Date End Date Name, MD Marty [address] [place] [address] PCP - General Internal Medicine 03/31/24 07/08/24 Rayne Medley NP [address] [place] [address] PCP - General Family Medicine 07/09/24 Jenn Bryan PharmD [address] [place] [id number] Pharmacist Internal Medicine 04/29/24 Ni August Bilingual ReceptionistCnc Lathe Machine Operator 03/11/25 documented as of this encounter
== END 2025-05-09 13:05 | disposition home or self-care (01) ==
LOC: HO.CT 13:04
PROVIDERS: Visit Provider Nurse Practitioner Family
DX: D47.3 Essential (hemorrhagic) thrombocythemia (principal); R06.09 Other forms of dyspnea
CPT/HCPCS: 71275; Q9967

== ENCOUNTER → 2025-05-09 13:06 | Outpatient (BNV) | payer MEDICAID, SELFPAY | PROVIDERS: Visit Provider Radiology Diagnostic Radiology | DX: R91.8 Other nonspecific abnormal finding of lung field (principal) | CPT/HCPCS: 71275 ==